=== PATIENT | female | born 1985 | race Hispanic/Latino ===

== ENCOUNTER 2019-08-27 02:37 | Emergency (ER) | payer SELFPAY ==
[2019-08-27] MEDS ORDERED: SODIUM CHLORIDE 0.9% 1000 ML 1,000 ML IV ONE (03:01)
[2019-08-27] MEDS ORDERED: MORPHINE 4 MG/1 ML INJ IV ONE ×2 (03:01→03:02)
[2019-08-27] MEDS ORDERED: ONDANSETRON 4 MG/2 ML INJ IV ONE (03:02)
--- NOTE | 2019-08-27 03:03 | Emergency Department Report ---
ED Female HPI - General Chief complaint: Vaginal Bleeding Stated complaint: ABD PAIN/PREG Time Seen by Provider: 08/27/19 02:57 Source: patient, EMS Mode of arrival: Stretcher Limitations: No Limitations - History of Present Illness Initial comments: This is a 34 yo female with hx of HTN who presents with possibled miscarriage. She recently found out that she was last week. She has had 2 days of severe pelvic cramping and vaginal bleeding. She arrived via EMS. Hx of possibly 5 pregnancies. She has had previous miscarriage and Hx of according to EMR MD Complaint: vaginal bleeding, pelvic pain -: Gradual, days(s) (2) Severity: severe Severity scale (0 -10): 10 Quality: cramping (feels like contractions) Consistency: constant Improves with: none Worsens with: none Are you Now?: Yes Associated Symptoms: denies other symptoms - Related Data Previous Rx's Medication Instructions Recorded Last Taken Type Ibuprofen [Motrin 800 MG tab] 800 mg PO TID PRN #30 tablet 03/23/18 Unknown Rx Lidocain2.5%/Prilocai2.5% [Emla] 5 gm TP ONCE #1 tube 03/23/18 Unknown Rx oxyCODONE /ACETAMINOPHEN [Percocet 1 - 2 tab PO Q4HR PRN #15 tablet 03/23/18 Unknown Rx 5/325 mg] labetaloL [Labetalol 200mg TAB] 200 mg PO BID #60 tablet 03/26/18 Unknown Rx HYDROcodone/APAP 5-325 [[place] 1 each PO Q6HR PRN #10 tablet 08/27/19 Unknown Rx 5/325] Ibuprofen [Motrin 800 MG tab] 800 mg PO Q8HR PRN #15 tablet 08/27/19 Unknown Rx Allergies Allergy/AdvReac Type Severity Reaction Status Date / Time No Known Allergies Allergy Unverified 03/23/18 14:50 ED Review of Systems ROS: Stated complaint: ABD PAIN/PREG Other details as noted in HPI Comment: All other systems reviewed and negative Constitutional: denies: fever, malaise Respiratory: denies: cough Cardiovascular: denies: chest pain ED Past Medical Hx - Past Medical History Previous Medical History?: Yes Hx Hypertension: Yes - Surgical History Past Surgical History?: Yes Additional Surgical History: - Social History Smoking Status: Current Every Day Smoker - Medications Home Medications: Home Medications Medication Instructions Recorded Confirmed Last Taken Type Ibuprofen [Motrin 800 MG tab] 800 mg PO TID PRN #30 tablet 03/23/18 Unknown Rx Lidocain2.5%/Prilocai2.5% [Emla] 5 gm TP ONCE #1 tube 03/23/18 Unknown Rx oxyCODONE /ACETAMINOPHEN [Percocet 1 - 2 tab PO Q4HR PRN #15 tablet 03/23/18 Unknown Rx 5/325 mg] labetaloL [Labetalol 200mg TAB] 200 mg PO BID #60 tablet 03/26/18 Unknown Rx HYDROcodone/APAP 5-325 [[place] 1 each PO Q6HR PRN #10 tablet 08/27/19 Unknown Rx 5/325] Ibuprofen [Motrin 800 MG tab] 800 mg PO Q8HR PRN #15 tablet 08/27/19 Unknown Rx ED Physical Exam - General Limitations: No Limitations General appearance: alert, in no apparent distress, other (in severe pain, pale) - Head Head exam: Present: atraumatic, normocephalic - Eye Eye exam: Present: normal appearance - ENT ENT exam: Present: mucous membranes moist - Neck Neck exam: Present: normal inspection, full ROM - Respiratory Respiratory exam: Present: normal lung sounds bilaterally. Absent: respiratory distress, wheezes, rales, rhonchi - Cardiovascular Cardiovascular Exam: Present: regular rate, normal rhythm, normal heart sounds. Absent: systolic murmur, diastolic murmur, rubs, gallop - GI/Abdominal GI/Abdominal exam: Present: soft, normal bowel sounds. Absent: distended, tenderness, guarding, rebound - Extremities Exam Extremities exam: Present: normal inspection - Neurological Exam Neurological exam: Present: alert, oriented X3 - Psychiatric Psychiatric exam: Present: normal affect, normal mood - Skin Skin exam: Present: warm, dry, intact, normal color. Absent: rash ED Course Vital Signs 08/27/19 08/27/19 08/27/19 02:47 02:51 03:01 Temperature 98.3 F Pulse Rate 60 59 L Respiratory 16 14 Rate Blood Pressure 122/63 Blood Pressure 122/63 [Right] O2 Sat by Pulse 100 100 Oximetry 08/27/19 08/27/19 08/27/19 03:54 04:01 04:15 Temperature Pulse Rate 85 93 H 92 H Respiratory 17 17 18 Rate Blood Pressure 122/78 122/78 132/88 Blood Pressure [Right] O2 Sat by Pulse 100 99 100 Oximetry 08/27/19 08/27/19 04:31 04:45 Temperature Pulse Rate 96 H 90 Respiratory 17 17 Rate Blood Pressure 130/98 136/93 Blood Pressure [Right] O2 Sat by Pulse 100 100 Oximetry ED Medical Decision Making - Lab Data Result diagrams: 08/27/19 03:34 08/27/19 03:34 - Radiology Data Radiology results: report reviewed ULTRASOUND OBSTETRIC INDICATION: Vaginal bleeding. Estimate clinical age of 14 weeks, 0 days. TECHNIQUE: Transabdominal. COMPARISON: None available. FINDINGS: A gestational sac is seen along the vagina with an estimated gestational age of 9 weeks, 4 days based on size. No pole or yolk sac is clearly seen. The endometrium is thickened and measures 16 mm with generalized heterogeneity, likely representing blood products. No additional significant abnormality of the uterus or ovaries is noted. No free fluid is seen. IMPRESSION: Sonographic evidence of a failed with spontaneous in progress. - Medical Decision Making Spontaneous : Ro positive. Pain control supportive therapy provided. Products of conception seen in vaginal vault on ultrasound has expelled once a bed. No significant bleeding thereafter. Patient prescribed ibuprofen and [place]. Critical care attestation.: If time is entered above; I have spent that time in minutes in the direct care of this critically ill patient, excluding procedure time. ED Disposition Clinical Impression: Spontaneous Disposition: DC-01 TO HOME OR SELFCARE Is pt being admited?: No Does the pt Need Aspirin: No Condition: Stable Instructions: Spontaneous Miscarriage (ED) Prescriptions: Ibuprofen [Motrin 800 MG tab] 800 mg PO Q8HR PRN #15 tablet PRN Reason: Pain , Severe (7-10) HYDROcodone/APAP 5-325 [[place] 5/325] 1 each PO Q6HR PRN #10 tablet PRN Reason: Pain Referrals: WAQAR BURGOS MD [Staff Physician] - 3-5 Days
[2019-08-27 03:52] LABS: Basophils % (Auto) 0.3 % (0.0-1.8); Eosinophils # (Auto) 0.1 K/mm3 (0.0-0.4); Eosinophils % (Auto) 0.8 % (0.0-4.3); Hematocrit 32.8 % (30.3-42.9); Hemoglobin 11.3 gm/dl (10.1-14.3); Mean Corpuscular HGB Conc 35 % (30-34); Mean Corpuscular Volume 89 fl (79-97); Monocytes # (Auto) 0.5 K/mm3 (0.0-0.8); Monocytes % (Auto) 5.4 % (0.0-7.3); Platelet Count 323 K/mm3 (140-440); Red Blood Count 3.69 M/mm3 (3.65-5.03); Red Cell Distribution Width 13.1 % (13.2-15.2)
[2019-08-27 04:10] LABS: Hemolysis Index 16
[2019-08-27 04:20] LABS: Calcium TNR mg/dL (8.4-10.2)
[2019-08-27 04:22] LABS: BUN/Creatinine Ratio TNR; Blood Urea Nitrogen TNR mg/dL (7-17)
[2019-08-27] MEDS ORDERED: KETOROLAC 30 MG/1 ML INJ IV ONE (04:33)
[2019-08-27 05:20] LABS: BUN/Creatinine Ratio 20; Blood Urea Nitrogen 12 mg/dL (7-17); Calcium 8.4 mg/dL (8.4-10.2); Hemolysis Index 16
[2019-08-27 05:42] VITALS: BP 117/81
== END 2019-08-27 05:42 | disposition home or self-care (01) ==
LOC: ED 02:37
DX: O03.9 Complete or unspecified spontaneous abortion without complication (principal); F17.200 Nicotine dependence, unspecified, uncomplicated; I10 Essential (primary) hypertension
CPT/HCPCS: 36415; 76801; 80048; 85025; 86900; 86901; 96374; 96375; 99285; J1885; J2270; J2405; J7030

== ENCOUNTER 2021-01-30 15:23 | Inpatient (IN) | payer MEDICAID ==
[2021-01-30] MEDS ORDERED: LACTATED RINGERS 1,000 ML ONE (15:53)
[2021-01-30] MEDS ORDERED: hydrALAZINE 20 MG/1 ML INJ ONE (15:53)
--- NOTE | 2021-01-30 16:14 | History and Physical Report ---
History of Present Illness Date of examination: 01/30/21 Date of admission: 01/30/2021 Chief complaint: contractions starting this am History of present illness: Pt reports one visit at [facility] in July 2020 with DON 02/13/21 per US. Pt reports labs were drawn at this visit but she did not return for any more care visits. Reports history of term x3 and term C/S x1 for breech in 2019. Denies any complications with deliveries. Pt reports history of chronic hypertension and has taken "Lisinopril off and on for years". Past History Past Medical History: hypertension. denies: blood transfusion Past Surgical History: section WEAVING LOOM OPERATOR History: other (partner with +herpes) Family/Genetic History: diabetes, heart disease Social history: other (admitted to meth use 3 weeks ago) - Obstetrical History Expected Date of Delivery: 02/13/21 (per pt) Actual Gestation: 38 Week(s) 0 Day(s) : 7 Para: 4 Hx # Term Pregnancies: 4 Number of Pregnancies: 0 Spontaneous Abortions: 1 Induced : 1 Number of Living Children: 4 #1 year: 2,007 Birthweight: 7 lb 7 oz Method of Delivery: Vaginal Gestational age at delivery: 40 Complications: none #2 year: 2,015 Birthweight: 6 lb 11 oz Method of Delivery: Vaginal Gestational age at delivery: 40 Complications: none #3 year: 2,016 Birthweight: 8 lb Method of Delivery: Vaginal Gestational age at delivery: 40 Complications: none #4 year: 2,019 Birthweight: 8 lb 11 oz Method of Delivery: Gestational age at delivery: 40 Complications: none #5 Complications: other (SAB @4 mos., received medications, denies D&C) #6 Complications: other (EAB @6wks) Medications and Allergies Allergies Allergy/AdvReac Type Severity Reaction Status Date / Time No Known Allergies Allergy Unverified 03/23/18 14:50 Home Medications Medication Instructions Recorded Confirmed Last Taken Type Ibuprofen [Motrin 800 MG tab] 800 mg PO TID PRN #30 tablet 03/23/18 Unknown Rx Lidocain2.5%/Prilocai2.5% [Emla] 5 gm TP ONCE #1 tube 03/23/18 Unknown Rx oxyCODONE /ACETAMINOPHEN [Percocet 1 - 2 tab PO Q4HR PRN #15 tablet 03/23/18 Unknown Rx 5/325 mg] labetaloL [Labetalol 200mg TAB] 200 mg PO BID #60 tablet 03/26/18 Unknown Rx HYDROcodone/APAP 5-325 [[place] 1 each PO Q6HR PRN #10 tablet 08/27/19 Unknown Rx 5/325] Ibuprofen [Motrin 800 MG tab] 800 mg PO Q8HR PRN #15 tablet 08/27/19 Unknown Rx - Vital Signs Vital signs: Vital Signs Pulse BP Pulse Ox 117 H 177/121 100 01/30/21 15:43 01/30/21 15:43 01/30/21 15:43 Temp Pulse Resp BP Pulse Ox 119 H 168/105 88 01/30/21 16:09 01/30/21 16:06 01/30/21 16:09 - Physical Exam Cardiovascular: Regular rate Lungs: Positive: Clear to auscultation Abdomen: Positive: normal appearance, soft Genitourinary (Female): Positive: normal external genitalia, normal perenium Vulva: both: normal Vagina: Positive: normal moisture Uterus: Positive: normal size, normal contour, other (gravid) Anus/Rectum: Positive: normal perianal skin, heme negative Extremities: Positive: other (red richardson mottled appearing on upper anterior BLE) - Obstetrical FHR: category 2 FHR comments: minimal to moderate variability reviewed on FHT's Uterine Contraction Monitor Mode: External Cervical Dilatation: 2 Cervical Effacement Percentage: 80 station: -3 Uterine Contraction Pattern: Regular Uterine Tone Measurement Phase: Contraction Uterine Contraction Intensity: Moderate Results Result Diagrams: 01/30/21 17:20 01/30/21 17:20 All other labs normal. Assessment and Plan Pt presents via EMS. BP elevated. Hydralazine ordered stat IV. SVE performed. Pt denies LOF and VB. Reports +FM. Dr. Benítez made aware. Orders received. - Patient Problems (1) Uterine scar from previous delivery Current Visit: Yes Status: Acute Plan to address problem: prep for rpt CS (2) Chronic hypertension Current Visit: No Status: Acute Plan to address problem: labs antihypertensives Magnesium Sulfate IV (3) Insufficient care in third trimester Current Visit: No Status: Acute Plan to address problem: Ultrasound Labs
[2021-01-30] MEDS ORDERED: MAGNESIUM SULFATE 4 GM/100 ML BAG IV ONE ×2 (16:34→16:36)
[2021-01-30] MEDS ORDERED: MAGNESIUM SULFATE 40GM/1000ML 40 GM/1,000 ML BAG IV ONE (16:36)
[2021-01-30] MEDS ORDERED: LACTATED RINGERS 1,000 ML IV SCH ×2 (16:45→17:30)
[2021-01-30] MEDS ORDERED: MAGNESIUM SULFATE 40GM/1000ML 40 GM/1,000 ML BAG IV SCH (17:00)
[2021-01-30] MEDS ORDERED: hydrALAZINE 20 MG/1 ML INJ IV ONE (17:04)
[2021-01-30] MEDS ORDERED: EMLA CREAM 5 GM TP PRN (17:18)
[2021-01-30] MEDS ORDERED: FAMOTIDINE 20 MG/2 ML INJ IV ONE (17:18)
[2021-01-30] MEDS ORDERED: METOCLOPRAMIDE 10 MG/2 ML INJ IV ONE (17:18)
[2021-01-30] MEDS ORDERED: BICITRA ORAL LIQD 30ML PO ONE (17:18)
--- NOTE | 2021-01-30 17:40 | Ultrasound Report ---
ULTRASOUND OBSTETRIC COMPLETE INDICATION / CLINICAL INFORMATION: wellbeing. Clinical Gestational Age (GA) in weeks, days: 38 weeks 0 days TECHNIQUE: Transabdominal. COMPARISON: None available. FINDINGS: NUMBER: Single PRESENTATION: cephalic PLACENTA: posterofundal and free of the os. MATERNAL ADNEXA: No significant abnormality. AMNIOTIC FLUID VOLUME: normal AMNIOTIC FLUID INDEX (ANGEL) in cm (if measured): 26.7 ANATOMY: Evaluation of anatomy is limited due to late gestational age. No significant abnormality. MEASUREMENTS: - Biparietal Diameter = 8.3 cm = 33 weeks 2 days - Head Circumference = 31.4 cm = 35 weeks 1 day - Abdominal Circumference = 34.9 cm = 38 weeks 6 days - Femur Length = 7.1 cm = 36 weeks 2 days - Estimated Weight (in grams, if calculated): 3127 - Heart Rate (beats per minute): 174 ADDITIONAL FINDINGS: None. PERCENTILE ESTIMATED WEIGHT (if calculated): Not calculated AVERAGE ULTRASOUND AGE (AUA) in weeks, days = 35 weeks 6 days IMPRESSION: 1. Single intrauterine with AUA of 35 weeks 6 days. 2. No significant sonographic abnormality. Signer Name: Erick Cheatham MD Signed: 01/30/2021 5:35 PM Workstation Name: [id number]
[2021-01-30 17:55] LABS: Hematocrit 31.9 % (30.3-42.9); Hemoglobin 9.6 gm/dl (10.1-14.3); Mean Corpuscular HGB Conc 30 % (30-34); Mean Corpuscular Volume 84 fl (79-97); Red Blood Count 3.81 M/mm3 (3.65-5.03); Red Cell Distribution Width 18.6 % (13.2-15.2)
[2021-01-30] MEDS ORDERED: ceFAZolin/Water 2 GM/20 ML 2 GM/20 ML SYRINGE IV NR (18:00)
[2021-01-30] MEDS ORDERED: OXYTOCIN DRIP 30 UNITS/500 ML BAG IV SCH (18:00)
[2021-01-30 18:08] LABS: Bilirubin,Urine NEG (Negative); Blood,Urine SM (Negative); Color,Urine Yellow (Yellow); Mucus,Urine FEW /HPF
[2021-01-30 18:09] LABS: Protein,Urine >500 mg/dL (Negative)
--- NOTE | 2021-01-30 18:10 | Anesthesia Day of Surgery ---
Anesthesia Day of Surgery - Day of Surgery Patient Examined: Yes Patient H&P Reviewed: Yes Patient is NPO: No (1300) Beta Blockers: Yes Cardiac Clearance: No Pulmonary Clearance: No Juno's Test: Negative
[2021-01-30 18:12] LABS: Amphetamine Screen,Urine PRESUMPTIVE POSITIVE; Benzodiazepines Screen,Urine PRESUMPTIVE NEGATIVE; Cannabinoid Screen,Urine PRESUMPTIVE NEGATIVE; Cocaine Screen,Urine PRESUMPTIVE NEGATIVE; Creatinine,Urine 95.7 mg/dL (0.1-20.0); Methadone Screen,Urine PRESUMPTIVE NEGATIVE; Opiate Screen,Urine PRESUMPTIVE NEGATIVE
[2021-01-30 18:13] LABS: Albumin 2.3 g/dL (3.9-5); Bilirubin,Direct 0.4 mg/dL (0-0.2)
[2021-01-30] MEDS ORDERED: NALOXONE 0.4 MG/1 ML INJ IV PRN ×2 (18:14→19:40)
[2021-01-30] MEDS ORDERED: HYDROmorphone 1 MG/1 ML INJ IV PRN ×2 (18:14)
[2021-01-30] MEDS ORDERED: ONDANSETRON 4 MG/2 ML INJ IV PRN (18:14)
--- NOTE | 2021-01-30 18:14 | Anesthesia Consultation ---
Anesthesia Consult and Med Hx Date of service: 01/30/21 - Airway Anesthetic Teeth Evaluation: Poor ROM Head & Neck: Adequate Mental/Hyoid Distance: Adequate Mallampati Class: Class II Intubation Access Assessment: Probably Good - Pulmonary Exam CTA: Yes - Cardiac Exam Cardiac Exam: RRR - Pre-Operative Health Status ASA Pre-Surgery Classification: ASA3, Emergency Proposed Anesthetic Plan: Spinal - Pulmonary Hx Smoking: Yes (1/4 PPD x 15yrs) Hx Asthma: Yes Hx Respiratory Symptoms: Yes SOB: Yes COPD: No Home Oxygen Therapy: No Hx Pneumonia: No Hx Sleep Apnea: No - Cardiovascular System Hx Hypertension: Yes Hx Coronary Artery Disease: No Hx Heart Attack/AMI: No Hx Angina: No Hx Percutaneous Transluminal Coronary Angioplasty (PTCA): No Hx Cardia Arrhythmia: No Hx Pacemaker: No Hx Internal Defibrillator: No Hx Valvular Heart Disease: No Hx Heart Murmur: No Hx Peripheral Vascular Disease: No - Central Nervous System Hx Neuromuscular Disorder: No Hx Seizures: No CVA: No Hx Back Pain: Yes Hx Psychiatric Problems: No - Gastrointestinal Hx Ulcer: No Hx Gastroesophageal Reflux Disease: Yes - Endocrine Hx Renal Disease: No Hx End Stage Renal Disease: No Hx Cirrhosis: No Hx Liver Disease: No Hx Insulin Dependent Diabetes: No Hx Non-Insulin Dependent Diabetes: No Hx Thyroid Disease: No Hx Hypothyroidism: No Hx Hyperthyroidism: No - Hematic Hx Anemia: No Hx Sickle Cell Disease: No - Other Systems Hx Alcohol Use: No Hx Substance Use: Yes (methamphethtamine 3wks ago) Hx Cancer: No Hx Obesity: Yes
[2021-01-30 18:16] LABS: Platelet Count 94 K/mm3 (140-440)
[2021-01-30] MEDS ORDERED: ONDANSETRON 4 MG/2 ML INJ ONE ×2 (18:23)
[2021-01-30 18:25] LABS: Hepatitis C Virus Antibody Non-Reactive (NonReactive)
--- NOTE | 2021-01-30 18:38 | Event Note ---
Date: 01/30/21 Pt advised of labs and that she seems to be in HELLP at this time due to low platelets, elevated liver enzymes. I advised that due to her being in this critical condition as well as being on the different medications as well as uds being positive for meth I would not be doing a permanent decision for BTL at this time and she can come back to office in 6weeks to have the procedure done. All questions were addressed and answered.
[2021-01-30 18:40] LABS: HCG,Quantitative 40597 mIU/mL (0-4)
[2021-01-30] MEDS ORDERED: BUPIVACAINE/PF (0.25%) 2.5 MG/ML 30 ML VIAL INFILTRATI ONE ×2 (19:20)
--- NOTE | 2021-01-30 19:38 | Operative Report ---
Operative Report Operative Report: Date of procedure: 01/30/2021 Pre-operative diagnosis: 38 weeks gestation History of methamphetamine use No care Severe preeclampsia Help syndrome Post-operative diagnosis: Same Procedure name(s): Repeat low transverse section via Pfannenstiel skin incision Surgeon: Dr. Benítez Energy Management Specialist: LUIS CARLOS Anesthesia: Spinal QBL: 1278 Urine output: 200 cc of clear urine out at end of procedure Fluids: 1 L Findings: Liveborn female weight 6 pounds 10 ounces Apgars of 8 and 9 at 1 and 5 minutes Grossly normal fallopian tubes and ovaries bilaterally Fibroid uterus Indications: Patient presented to triage with blood pressures in severe ranges of approximately 170s over 100s. Patient was also noted to have no care. As well as patient was noted to be in latent labor and previous section scar. Decision was made to proceed to the operating room for repeat section. All risk benefits alternatives were discussed with the patient. Procedure: Patient was taking to the operating room. Patient was then prepped and draped in sterile fashion after anesthesia was found to be adequate. A low transverse skin incision was made with the scalpel through previous incisional scar and carried down to the underlying layer of fascia with the Bovie. The fascia was then incised in the midline and this incision was extended bilaterally with the Bovie. The superior aspect of the fascia was grasped with Eric clamps tented upward and dissected off of the anterior rectus muscles with the scalpel. In similar fashion the inferior aspect of the fascia was grasped with Eric clamps tented upward and dissected off of the anterior rectus muscles. The rectus muscles were then bluntly divided in the midline. The peritoneum was identified and entered into sharply. The bladder blade was placed. The Conrad retractor was placed the bladder blade was replaced. A lower transverse uterine incision was made with the scalpel and extended bilaterally with the bandage scissors. Artificial rupture of membranes was performed yielding [clear amniotic fluid]. The 's head was then delivered atraumatically. The anterior shoulder and rest of delivered without difficulty. The umbilical cord was clamped x2. The cord was cut. The infant was then placed in sterile bassinet. The placenta was manually extracted in its entirety. The uterus was exteriorized and cleared of all clots and debris. The uterine incision was closed using 0 Vicryl in a running locking fashion. Several [id number] sutures were used along incision line to secure excellent hemostasis. The posterior cul-de-sac was copiously irrigated. The uterus was returned to the abdomen. The gutters were also irrigated. The anterior rectus muscles were reapproximated using 3-0 Vicryl. The anterior rectus fascia was reapproximated using 0 Vicryl in a running fashion. The subcuticular fat was reapproximated using 2-0 Vicryl in a running fashion. The skin was reapproximated with 4-0 Monocryl in a subcuticular stitch. The patient tolerated the procedure well. Sponge lap and needle counts were all correct x3. Patient was taken to the recovery room awake and in stable condition.
[2021-01-30] MEDS ORDERED: ACETAMINOPHEN 325 MG TAB PO PRN (19:40)
[2021-01-30] MEDS ORDERED: WITCH HAZEL/ GLYCERIN PAD TP PRN (19:40)
[2021-01-30] MEDS ORDERED: SIMETHICONE 80 MG CHEW TAB PO PRN (19:40)
[2021-01-30] MEDS ORDERED: KETOROLAC 30 MG/1 ML INJ IV PRN ×2 (19:40)
[2021-01-30] MEDS ORDERED: HYDROcodone/ACETAMINOPHEN 5-325 MG TAB PO PRN (19:40)
[2021-01-30] MEDS ORDERED: LANOLIN/ZINC/DIMETHICONE (LANSINOH) 7 GM TP PRN (19:40)
[2021-01-30] MEDS ORDERED: IBUPROFEN 800 MG TAB PO PRN (19:40)
--- NOTE | 2021-01-30 20:16 | Progress Note ---
Spinal Anesthesia Block - Spinal Anesthesia Block Start Time: 19:38 Stop Time: 19:43 Performed by:: ARVIND SCHWAB Procedure: Patient IDed, H&P reviewed, all questions and concerns were answered, and consent was signed. Timeout was performed at bedside. Patient in sitting position. Sterile prep and drape was performed. [3] ml of 1% lidocaine skin wheal at L[3]- L [4]. Needle introducer advanced. 25 gauge spinal needle advanced. Clear, free flowing CSF. negative blood, negative paresthesia. Spinal dose given. All needles removed. Patient tolerated procedure.
--- NOTE | 2021-01-30 20:20 | Progress Note ---
Regional Anesthesia Block - Regional Anesthesia Block Start Time: 19:32 Stop Time: 19:38 Performed By:: ARVIND SCHWAB Procedure: Patient consented for TAP block for post surgical pain management. Patient identified, monitors placed, and time out performed. TAP identified bilaterally via ultrasound. Skin prepped bilaterally with [chlorhexidine] and [22g stimuplex] needle advanced to the TAP. [Marcaine 0.25% 30ml] injected under ultrasound guidance on the [left] side. [Marcaine 0.25% 30ml] injected under ultrasound guidance on the [right] side. Negative aspiration every 5mL, No change in heart rate or rhythm. Patient tolerated the procedure well. No apparent complications seen.
[2021-01-30 20:54] LABS: INR 1.57 (0.87-1.13)
[2021-01-30 21:34] LABS: Partial Thromboplastin Time 82.2 Sec. (24.2-36.6)
--- NOTE | 2021-01-30 22:44 | Event Note ---
Date: 01/30/21 Co Ags ordered by screen roller and are abnormal. However, pt not having any active bleeding and had normal clotting response during surgery. No fibronogen was ordered. Will obtain fibrinogen and also repeat her sodium level at this time in addition to repeating the h/h as she she was anemic an qbl was >1200ml. Will con't to closely follow and monitor closely.
[2021-01-30 22:45] LABS: Total Cells Counted 100
[2021-01-30 22:46] LABS: Anisocytosis 1+; Macrocytosis Few; Platelet Estimate Consistent w Auto
[2021-01-31 00:01] LABS: Hematocrit 29.1 % (30.3-42.9); Hemoglobin 9.1 gm/dl (10.1-14.3)
[2021-01-31 04:15] LABS: Hematocrit 30.3 % (30.3-42.9); Hemoglobin 9.3 gm/dl (10.1-14.3); Mean Corpuscular HGB Conc 31 % (30-34); Mean Corpuscular Volume 81 fl (79-97); Platelet Count 246 K/mm3 (140-440); Red Blood Count 3.73 M/mm3 (3.65-5.03); Red Cell Distribution Width 18.2 % (13.2-15.2)
[2021-01-31 04:21] LABS: Albumin 2.1 g/dL (3.9-5); Calcium 7.3 mg/dL (8.4-10.2)
--- NOTE | 2021-01-31 05:26 | Post Anesthesia Evaluation ---
- Post Anesthesia Evaluation Patient Participated: Yes Airway Patent: Yes Stable Respiratory Function: Yes Nausea/Vomiting: No Temp > 96.8F: Yes Pain Manageable: Yes Adequeate Hydration: Yes Anesthesia Complications: No Block Receding Appropriately: Yes Patient on Ventilator: No
[2021-01-31 05:48] LABS: Anisocytosis 1+; Platelet Estimate Consistent w Auto; Total Cells Counted 100
--- NOTE | 2021-01-31 05:51 | Event Note ---
Date: 01/31/21 Labs reviewed: Pt continues to have hyponatremia. Will consult hospitalist team at this time regarding this and repletion of the sodium in a controlled manner. Pt does not have any s/sx of hyponatremia so this could be chronic. Platelets are now is normal range after delivery and serial h/h does not seem to reflect the QBL calculated. Pt did have polu prior to delivery and this is likely reflected in the QBL. LFTs are still elevated due to severe preE. Will con't will serial labs. Mag was restarted due to be being elevated again once the affects of the spinal had worn off. Blood pressures are no longer in the sever range after delivery. Will con't to closely monitor pt at this time.
[2021-01-31] MEDS ORDERED: MORPHINE 4 MG/1 ML INJ IV PRN (08:21)
[2021-01-31] MEDS ORDERED: MORPHINE 2 MG/1 ML INJ IV PRN (08:21)
[2021-01-31] MEDS: HYDROmorphone 1 MG/1 ML INJ IV PRN ×3 (09:06→21:59)
[2021-01-31 09:16] LABS: Hemoglobin 9.7 gm/dl (10.1-14.3); Mean Corpuscular HGB Conc 31 % (30-34); Mean Corpuscular Volume 80 fl (79-97); Platelet Count 265 K/mm3 (140-440); Red Blood Count 3.85 M/mm3 (3.65-5.03); Red Cell Distribution Width 18.3 % (13.2-15.2)
[2021-01-31 09:26] LABS: INR 1.13 (0.87-1.13)
--- NOTE | 2021-01-31 09:26 | Progress Note ---
Assessment and Plan A: 35 y.o. s/p rpt , no care. HELLP Syndrome. Hx of chronic hypertension. - Patient Problems (1) Hemolysis, elevated liver enzymes, and low platelet (HELLP) syndrome during , delivered Current Visit: Yes Status: Acute Plan to address problem: Continue to monitor blood pressures. Continue to monitor labs. Awaiting nephrology and medical consults. Strict I&O's. IV fluids and pain medication adjusted. Clear liquid diet. Continue to monitor for worsening s/sx of HELLP. (2) delivery delivered Onset Date: ~03/23/18 Current Visit: No Status: Acute (3) Hyperkalemia Current Visit: Yes Status: Acute (4) Hyponatremia Current Visit: Yes Status: Acute (5) Chronic hypertension Current Visit: No Status: Acute Plan to address problem: Continue to monitor blood pressures. Awaiting recommendations from nephrology and medicine for medical management. Subjective - Subjective Date of service: 01/31/21 Principal diagnosis: s/p , POD #1, HELLP Syndrome, hyperkalemia, hyponatremia Patient reports: pain well controlled, other (Rudolph draining clear yellow urine, about 100ml noted during time of assessment. ) [place]: in NICU Objective - Vital Signs Latest vital signs: Vital Signs Temp Pulse Resp BP BP Pulse Ox Pulse Ox 01/31/21 09:23 85 99 01/31/21 09:18 90 91 01/31/21 09:16 83 133/92 01/31/21 09:13 85 99 01/31/21 09:08 84 97 01/31/21 09:06 20 01/31/21 09:03 82 99 01/31/21 08:58 83 98 01/31/21 08:53 86 97 01/31/21 08:48 86 99 01/31/21 08:46 83 132/93 01/31/21 08:43 86 98 01/31/21 08:38 85 98 01/31/21 08:33 85 98 01/31/21 08:31 83 135/93 01/31/21 08:28 86 98 01/31/21 08:23 85 98 01/31/21 08:18 86 98 01/31/21 08:16 85 134/96 01/31/21 08:13 86 99 01/31/21 08:08 86 100 01/31/21 08:03 86 98 01/31/21 08:01 89 130/90 01/31/21 07:59 100 01/31/21 07:58 84 99 01/31/21 07:57 97.4 F L 20 100 01/31/21 07:46 82 126/76 01/31/21 07:31 83 127/80 01/31/21 07:16 82 131/81 01/31/21 07:01 81 133/79 01/31/21 06:46 82 135/82 01/31/21 06:31 81 136/83 01/31/21 06:16 83 132/82 01/31/21 06:01 85 124/78 01/31/21 05:46 83 123/76 01/31/21 05:31 82 128/81 01/31/21 05:16 88 129/79 01/31/21 05:01 86 124/77 01/31/21 04:46 89 127/79 01/31/21 04:31 86 124/79 01/31/21 04:16 86 130/84 01/31/21 04:01 86 127/85 01/31/21 03:46 85 134/85 01/31/21 03:31 93 H 131/78 01/31/21 03:16 87 132/79 01/31/21 03:01 89 130/78 01/31/21 02:46 89 134/82 01/31/21 02:31 93 H 135/80 01/31/21 02:16 91 H 140/90 01/31/21 02:01 93 H 141/87 01/31/21 01:46 93 H 137/86 01/31/21 01:31 93 H 144/91 01/31/21 01:16 95 H 150/93 01/31/21 01:01 96 H 143/90 01/31/21 00:46 93 H 149/94 01/31/21 00:31 93 H 150/91 01/31/21 00:26 98.4 F 01/31/21 00:16 93 H 150/87 01/31/21 00:01 93 H 143/93 01/30/21 23:46 94 H 147/97 01/30/21 23:35 97 H 100 01/30/21 23:31 96 H 144/92 01/30/21 23:30 95 H 98 01/30/21 23:25 95 H 98 01/30/21 23:20 95 H 98 01/30/21 23:16 91 H 145/93 01/30/21 23:15 92 H 99 01/30/21 23:10 93 H 98 01/30/21 23:05 94 H 99 01/30/21 23:01 91 H 134/97 01/30/21 23:00 96 H 99 01/30/21 22:55 93 H 100 01/30/21 22:50 92 H 99 01/30/21 22:46 93 H 143/88 01/30/21 22:45 92 H 99 01/30/21 22:40 92 H 100 01/30/21 22:35 95 H 100 01/30/21 22:31 96 H 137/86 01/30/21 22:30 101 H 88 01/30/21 22:25 94 H 100 01/30/21 22:20 97 H 100 01/30/21 22:16 94 H 136/82 01/30/21 22:15 97 H 99 01/30/21 22:14 97 H 86 01/30/21 22:10 93 H 100 01/30/21 22:05 95 H 100 01/30/21 22:01 92 H 137/82 01/30/21 22:00 91 H 100 01/30/21 21:55 92 H 100 01/30/21 21:50 92 H 100 01/30/21 21:46 93 H 123/78 01/30/21 21:45 92 H 100 01/30/21 21:40 91 H 98 01/30/21 21:35 89 100 01/30/21 21:31 90 132/82 01/30/21 21:30 91 H 100 98 01/30/21 20:56 86 13 121/71 100 01/30/21 20:45 86 14 113/68 100 01/30/21 20:30 97.8 F 84 15 115/61 100 01/30/21 20:18 97.7 F 84 15 96/72 100 01/30/21 20:14 84 15 97/58 100 01/30/21 20:09 83 19 99/55 97 01/30/21 20:05 84 12 90/66 100 01/30/21 20:02 96.5 F L 83 14 94/60 100 01/30/21 18:23 114 H 100 01/30/21 18:18 115 H 170/113 94 01/30/21 18:13 123 H 89 01/30/21 18:12 101 H 85 01/30/21 18:10 118 H 197/130 01/30/21 18:08 117 H 100 01/30/21 18:03 111 H 100 01/30/21 17:58 112 H 100 01/30/21 17:54 113 H 157/97 01/30/21 17:53 112 H 100 01/30/21 17:48 110 H 100 01/30/21 17:43 112 H 100 01/30/21 17:40 117 H 168/105 01/30/21 17:38 111 H 100 01/30/21 17:33 111 H 98 01/30/21 17:28 113 H 100 01/30/21 17:23 114 H 167/97 100 01/30/21 17:18 114 H 100 01/30/21 17:13 116 H 100 01/30/21 17:11 175/124 01/30/21 17:09 113 H 175/107 01/30/21 17:08 113 H 100 01/30/21 17:03 117 H 100 01/30/21 17:00 140 H 86 01/30/21 16:58 117 H 98 01/30/21 16:55 117 H 175/124 01/30/21 16:54 114 H 87 01/30/21 16:53 116 H 96 01/30/21 16:40 117 H 176/120 01/30/21 16:39 119 H 95 01/30/21 16:37 115 H 176/120 01/30/21 16:35 117 H 79 L 01/30/21 16:34 112 H 100 01/30/21 16:29 118 H 93 01/30/21 16:26 117 H 140/103 01/30/21 16:24 116 H 97 01/30/21 16:19 116 H 100 01/30/21 16:18 98.6 F 117 H 22 170/102 96 01/30/21 16:17 116 H 173/102 01/30/21 16:14 116 H 99 01/30/21 16:09 119 H 88 01/30/21 16:06 117 H 168/105 01/30/21 16:04 115 H 98 01/30/21 16:01 117 H 90 01/30/21 15:59 113 H 87 01/30/21 15:56 117 H 170/114 01/30/21 15:54 84 91 01/30/21 15:43 117 H 177/121 100 Pulse Ox 01/31/21 09:23 01/31/21 09:18 01/31/21 09:16 01/31/21 09:13 01/31/21 09:08 01/31/21 09:06 01/31/21 09:03 01/31/21 08:58 01/31/21 08:53 01/31/21 08:48 01/31/21 08:46 01/31/21 08:43 01/31/21 08:38 01/31/21 08:33 01/31/21 08:31 01/31/21 08:28 01/31/21 08:23 01/31/21 08:18 01/31/21 08:16 01/31/21 08:13 01/31/21 08:08 01/31/21 08:03 01/31/21 08:01 01/31/21 07:59 100 01/31/21 07:58 01/31/21 07:57 01/31/21 07:46 01/31/21 07:31 01/31/21 07:16 01/31/21 07:01 01/31/21 06:46 01/31/21 06:31 01/31/21 06:16 01/31/21 06:01 01/31/21 05:46 01/31/21 05:31 01/31/21 05:16 01/31/21 05:01 01/31/21 04:46 01/31/21 04:31 01/31/21 04:16 01/31/21 04:01 01/31/21 03:46 01/31/21 03:31 01/31/21 03:16 01/31/21 03:01 01/31/21 02:46 01/31/21 02:31 01/31/21 02:16 01/31/21 02:01 01/31/21 01:46 01/31/21 01:31 01/31/21 01:16 01/31/21 01:01 01/31/21 00:46 01/31/21 00:31 01/31/21 00:26 01/31/21 00:16 01/31/21 00:01 01/30/21 23:46 01/30/21 23:35 01/30/21 23:31 01/30/21 23:30 01/30/21 23:25 01/30/21 23:20 01/30/21 23:16 01/30/21 23:15 01/30/21 23:10 01/30/21 23:05 01/30/21 23:01 01/30/21 23:00 01/30/21 22:55 01/30/21 22:50 01/30/21 22:46 01/30/21 22:45 01/30/21 22:40 01/30/21 22:35 01/30/21 22:31 01/30/21 22:30 01/30/21 22:25 01/30/21 22:20 01/30/21 22:16 01/30/21 22:15 01/30/21 22:14 01/30/21 22:10 01/30/21 22:05 01/30/21 22:01 01/30/21 22:00 01/30/21 21:55 01/30/21 21:50 01/30/21 21:46 01/30/21 21:45 01/30/21 21:40 01/30/21 21:35 01/30/21 21:31 01/30/21 21:30 01/30/21 20:56 01/30/21 20:45 01/30/21 20:30 01/30/21 20:18 01/30/21 20:14 01/30/21 20:09 01/30/21 20:05 01/30/21 20:02 01/30/21 18:23 01/30/21 18:18 01/30/21 18:13 01/30/21 18:12 01/30/21 18:10 01/30/21 18:08 01/30/21 18:03 01/30/21 17:58 01/30/21 17:54 01/30/21 17:53 01/30/21 17:48 01/30/21 17:43 01/30/21 17:40 01/30/21 17:38 01/30/21 17:33 01/30/21 17:28 01/30/21 17:23 01/30/21 17:18 01/30/21 17:13 01/30/21 17:11 01/30/21 17:09 01/30/21 17:08 01/30/21 17:03 01/30/21 17:00 01/30/21 16:58 01/30/21 16:55 01/30/21 16:54 01/30/21 16:53 01/30/21 16:40 01/30/21 16:39 01/30/21 16:37 01/30/21 16:35 01/30/21 16:34 01/30/21 16:29 01/30/21 16:26 01/30/21 16:24 01/30/21 16:19 01/30/21 16:18 01/30/21 16:17 01/30/21 16:14 01/30/21 16:09 01/30/21 16:06 01/30/21 16:04 01/30/21 16:01 01/30/21 15:59 01/30/21 15:56 01/30/21 15:54 01/30/21 15:43 Intake and Output 01/30/21 01/31/21 01/31/21 22:59 06:59 14:59 Intake Total 105 Output Total 50 250 30 Balance -50 -250 75 Intake: Oral 30 Other 75 Output: Urine 50 250 30 Indwelling Catheter 250 30 Uretheral (Rudolph) 50 Other: Total, Intake Amount 105 Total, Output Amount 250 30 # Voids Indwelling Catheter 1 Weight 197 lb - Exam Narrative Exam: Pt denies PEREZ, blurred vision, spots before her eyes, chest pain, shortness of breath, and upper abdominal pain. Blood pressures ranges have been 130/90's. Pt with noted hyponatremia, hyperkalemia. Medical and nephrology have been consulted. Breasts: Present: deferred Cardiovascular: Present: Normal S1, Normal S2 Lungs: Present: Clear to auscultation Abdomen: Present: normal appearance, soft, other (Hypoactive bowel sounds.) Vulva: both: normal Uterus: Present: normal, firm Extremities: Present: edema (+1 to +2 edema to bilateral hands and lower extremities.) Deep Tendon Reflex Grade: Dull/Diminished +1 Incision: Present: normal, dry, intact, dressed (Abdominal dressing with no ) - Labs Labs: Abnormal lab results 01/30/21 01/30/21 01/30/21 Range/Units 17:20 17:20 17:20 WBC 13.8 H (4.5-11.0) K/mm3 Hgb 9.6 L (10.1-14.3) gm/dl Hct (30.3-42.9) % MCH 25 L (28-32) pg RDW 18.6 H (13.2-15.2) % Plt Count 94 L (140-440) K/mm3 Seg Neuts % (Manual) 90.0 H (40.0-70.0) % Lymphocytes % (Manual) 7.0 L (13.4-35.0) % Nucleated RBC % 3.0 H (0.0-0.9) % Seg Neutrophils # Man 12.4 H (1.8-7.7) K/mm3 Lymphocytes # (Manual) 1.0 L (1.2-5.4) K/mm3 PT (12.2-14.9) Sec. INR (0.87-1.13) APTT (24.2-36.6) Sec. Sodium 119 L* (137-145) mmol/L Chloride 88.7 L (98-107) mmol/L Carbon Dioxide 12 L (22-30) mmol/L BUN 39 H (7-17) mg/dL Creatinine 1.4 H (0.6-1.2) mg/dL Glucose (65-100) mg/dL Uric Acid (3.5-7.6) mg/dL Calcium 7.0 L (8.4-10.2) mg/dL Magnesium 16.60 H (1.7-2.3) mg/dL Direct Bilirubin 0.4 H (0-0.2) mg/dL AST 178 H (5-40) units/L ALT 115 H (7-56) units/L Alkaline Phosphatase 166 H (35-129) units/L Total Protein 5.5 L (6.3-8.2) g/dL Albumin 2.3 L (3.9-5) g/dL HCG, Quant 66812 H (0-4) mIU/mL Urine Creatinine (0.1-20.0) mg/dL Urine Total Protein (5-11.8) mg/dL 01/30/21 01/30/21 01/30/21 Range/Units 17:20 20:16 23:37 WBC (4.5-11.0) K/mm3 Hgb 9.1 L (10.1-14.3) gm/dl Hct 29.1 L (30.3-42.9) % MCH (28-32) pg RDW (13.2-15.2) % Plt Count (140-440) K/mm3 Seg Neuts % (Manual) (40.0-70.0) % Lymphocytes % (Manual) (13.4-35.0) % Nucleated RBC % (0.0-0.9) % Seg Neutrophils # Man (1.8-7.7) K/mm3 Lymphocytes # (Manual) (1.2-5.4) K/mm3 PT 20.3 H (12.2-14.9) Sec. INR 1.57 H (0.87-1.13) APTT 82.2 H* (24.2-36.6) Sec. Sodium (137-145) mmol/L Chloride (98-107) mmol/L Carbon Dioxide (22-30) mmol/L BUN (7-17) mg/dL Creatinine (0.6-1.2) mg/dL Glucose (65-100) mg/dL Uric Acid 12.1 H (3.5-7.6) mg/dL Calcium (8.4-10.2) mg/dL Magnesium (1.7-2.3) mg/dL Direct Bilirubin (0-0.2) mg/dL AST (5-40) units/L ALT (7-56) units/L Alkaline Phosphatase (35-129) units/L Total Protein (6.3-8.2) g/dL Albumin (3.9-5) g/dL HCG, Quant (0-4) mIU/mL Urine Creatinine (0.1-20.0) mg/dL Urine Total Protein (5-11.8) mg/dL 01/30/21 01/30/21 01/31/21 Range/Units 23:37 Unknown 03:30 WBC 17.7 H (4.5-11.0) K/mm3 Hgb 9.3 L (10.1-14.3) gm/dl Hct (30.3-42.9) % MCH 25 L (28-32) pg RDW 18.2 H (13.2-15.2) % Plt Count (140-440) K/mm3 Seg Neuts % (Manual) (40.0-70.0) % Lymphocytes % (Manual) 8.0 L (13.4-35.0) % Nucleated RBC % 3.0 H (0.0-0.9) % Seg Neutrophils # Man 16.3 H (1.8-7.7) K/mm3 Lymphocytes # (Manual) (1.2-5.4) K/mm3 PT (12.2-14.9) Sec. INR (0.87-1.13) APTT (24.2-36.6) Sec. Sodium 135 L D (137-145) mmol/L Chloride (98-107) mmol/L Carbon Dioxide (22-30) mmol/L BUN (7-17) mg/dL Creatinine (0.6-1.2) mg/dL Glucose (65-100) mg/dL Uric Acid (3.5-7.6) mg/dL Calcium (8.4-10.2) mg/dL Magnesium (1.7-2.3) mg/dL Direct Bilirubin (0-0.2) mg/dL AST (5-40) units/L ALT (7-56) units/L Alkaline Phosphatase (35-129) units/L Total Protein (6.3-8.2) g/dL Albumin (3.9-5) g/dL HCG, Quant (0-4) mIU/mL Urine Creatinine 95.7 H (0.1-20.0) mg/dL Urine Total Protein 776 H (5-11.8) mg/dL 01/31/21 01/31/21 01/31/21 Range/Units 03:30 09:00 09:00 WBC 16.8 H (4.5-11.0) K/mm3 Hgb 9.7 L (10.1-14.3) gm/dl Hct (30.3-42.9) % MCH 25 L (28-32) pg RDW 18.3 H (13.2-15.2) % Plt Count (140-440) K/mm3 Seg Neuts % (Manual) (40.0-70.0) % Lymphocytes % (Manual) (13.4-35.0) % Nucleated RBC % (0.0-0.9) % Seg Neutrophils # Man (1.8-7.7) K/mm3 Lymphocytes # (Manual) (1.2-5.4) K/mm3 PT 15.7 H (12.2-14.9) Sec. INR (0.87-1.13) APTT (24.2-36.6) Sec. Sodium 129 L (137-145) mmol/L Chloride (98-107) mmol/L Carbon Dioxide 14 L (22-30) mmol/L BUN 45 H (7-17) mg/dL Creatinine 1.7 H (0.6-1.2) mg/dL Glucose 130 H (65-100) mg/dL Uric Acid (3.5-7.6) mg/dL Calcium 7.3 L (8.4-10.2) mg/dL Magnesium (1.7-2.3) mg/dL Direct Bilirubin (0-0.2) mg/dL AST 175 H (5-40) units/L ALT 127 H (7-56) units/L Alkaline Phosphatase 139 H (35-129) units/L Total Protein 5.0 L (6.3-8.2) g/dL Albumin 2.1 L (3.9-5) g/dL HCG, Quant (0-4) mIU/mL Urine Creatinine (0.1-20.0) mg/dL Urine Total Protein (5-11.8) mg/dL
[2021-01-31 09:27] LABS: Partial Thromboplastin Time 34.2 Sec. (24.2-36.6)
[2021-01-31 09:32] LABS: Albumin 2.3 g/dL (3.9-5); Calcium 7.1 mg/dL (8.4-10.2)
[2021-01-31] MEDS: FERROUS SULFATE 325 MG TAB PO SCH (10:01)
[2021-01-31] MEDS: ceFAZolin/NS 1 GM/50 ML 1 GM/50 ML BAG IV SCH ×5 (10:04→17:21)
[2021-01-31] MEDS ORDERED: SODIUM BICARB 8.4% 50 MEQ/50 ML SYRINGE IV ONE (10:58)
--- NOTE | 2021-01-31 10:58 | Consultation ---
History of Present Illness - Reason for Consult Consult date: 01/31/21 Hyponatremia Requesting physician: WAQAR BURGOS - History of Present Illness Patient is a 35 year old female with past medical hx of Chronic HTN was taken off lisinpril per patient presented to the hospital for concern of HELLP syndrome and underwent C section 01/30. She unfortunately had poor care and also has hx of tobacco smoking and methamphetamin use through out her .During visit was noted to have Hyponatremia and Leukocoytosis with worsening renal function We are consulted to assist with management She denies any chest pain, nausea and vomiting. Past History Past Medical History: hypertension, hyperlipidemia, other (tobacco) Past Surgical History: Social history: single, other (admitted to meth use 3 weeks ago) Family history: no significant family history Medications and Allergies Allergies Allergy/AdvReac Type Severity Reaction Status Date / Time No Known Allergies Allergy Unverified 03/23/18 14:50 Home Medications Medication Instructions Recorded Confirmed Last Taken Type Ibuprofen [Motrin 800 MG tab] 800 mg PO TID PRN #30 tablet 03/23/18 Unknown Rx Lidocain2.5%/Prilocai2.5% [Emla] 5 gm TP ONCE #1 tube 03/23/18 Unknown Rx oxyCODONE /ACETAMINOPHEN [Percocet 1 - 2 tab PO Q4HR PRN #15 tablet 03/23/18 Unknown Rx 5/325 mg] labetaloL [Labetalol 200mg TAB] 200 mg PO BID #60 tablet 03/26/18 Unknown Rx HYDROcodone/APAP 5-325 [[place] 1 each PO Q6HR PRN #10 tablet 08/27/19 Unknown Rx 5/325] Ibuprofen [Motrin 800 MG tab] 800 mg PO Q8HR PRN #15 tablet 08/27/19 Unknown Rx Docusate Sodium [Colace] 100 mg PO BID PRN #60 capsule 01/30/21 Unknown Rx Ferrous Sulfate [Feosol 325 MG tab] 325 mg PO QDAY #60 tablet 01/30/21 Unknown Rx Ibuprofen [Motrin 800 MG tab] 800 mg PO Q8HR PRN #30 tablet 01/30/21 Unknown Rx oxyCODONE /ACETAMINOPHEN [Percocet 1 tab PO Q4HR #15 tab 01/30/21 Unknown Rx 5/325] Active Meds: Active Medications Diphtheria/Tetanus/Acell Pertussis (Tetanus,Diph,Pertuss(Acell) Vaccine 0.5 Ml Syringe) 0.5 ml IM .ONCE ONE Stop: 01/31/21 19:46 Ferrous Sulfate (Ferrous Sulfate 325 Mg Tab) 325 mg PO QDAY [facility] Last Admin: 01/31/21 10:01 Dose: 325 mg Documented by: Hydralazine HCl (Hydralazine 20 Mg/1 Ml Inj) 10 mg IV ONCE PRN PRN Reason: Hypertension Hydromorphone HCl (Hydromorphone 1 Mg/1 Ml Inj) 0.25 mg IV Q4H PRN PRN Reason: Pain , MODERATE(4-6) Last Admin: 01/31/21 09:06 Dose: 0.25 mg Documented by: Hydromorphone HCl (Hydromorphone 1 Mg/1 Ml Inj) 0.5 mg IV Q4H PRN PRN Reason: Pain , Severe (7-10) Oxytocin/Sodium Chloride (Pitocin/Ns 30 Unit/500ml) 30 units in 500 mls @ 0 mls/hr IV TITR JONATAN; Protocol Sodium Chloride (Nacl 0.9% 1000 Ml) 1,000 mls @ 125 mls/hr IV DIRECT JONATAN Cefazolin Sodium (Ancef/Ns 1 Gm/50 Ml) 1 gm in 50 mls @ 100 mls/hr IV Q8H [facility]; Protocol Stop: 01/31/21 18:29 Labetalol HCl (Labetalol 200 Mg Tab) 300 mg PO BID [facility] Last Admin: 01/31/21 10:02 Dose: 300 mg Documented by: Lidocaine/Prilocaine (Emla Cream 5 Gm) 1 applic TP ONCE PRN PRN Reason: for [place] catheter insertion Multi-Ingredient Ointment (Lanolin/Zinc/Dimethicone (Lansinoh) 7 Gm) 1 applic TP PRN PRN PRN Reason: dryness/cracking Naloxone HCl (Naloxone 0.4 Mg/1 Ml Inj) 0.2 mg IV Q2MIN PRN PRN Reason: Res Rate </= 8 or 02 SAT < 92% Naloxone HCl (Naloxone 0.4 Mg/1 Ml Inj) 0.1 mg IV Q2MIN PRN PRN Reason: Res Rate </= 8 or 02 SAT < 92% Ondansetron HCl (Ondansetron 4 Mg/2 Ml Inj) 4 mg IV Q8H PRN PRN Reason: Nausea And Vomiting Simethicone (Simethicone 80 Mg Chew Tab) 80 mg PO Q6H PRN PRN Reason: Gas pain Sodium Chloride (Sodium Chloride 0.9% 10 Ml Flush Syringe) 10 ml IV PRN NR Stop: 02/09/21 19:59 Witch Connie/Glycerin (Witch Connie/ Glycerin Pad) 1 each TP PRN PRN PRN Reason: Hemorrhoids/cleansing/soothing Review of Systems All systems: negative Exam - Physical Exam Narrative exam: VITAL SIGNS: Reviewed. GENERAL: The patient appears normally developed, Vital signs as documented. HEAD: No signs of head trauma. EYES: Pupils are equal. Extraocular motions intact. EARS: Hearing grossly intact. MOUTH: Oropharynx is normal. NECK: No adenopathy, no JVD. CHEST: Chest with clear breath sounds bilaterally. No wheezes, rales, or rhonchi. CARDIAC: Regular rate and rhythm. S1 and S2, without murmurs, gallops, or rubs. VASCULAR: No Edema. Peripheral pulses normal and equal in all extremities. ABDOMEN: Surgical lesion, Soft, non tender and non distended. No rebound or guarding, and no masses palpated. Bowel Sounds normal. MUSCULOSKELETAL: Good range of motion of all major joints. Extremities without clubbing, cyanosis or edema. NEUROLOGIC EXAM: Alert and oriented x 3 No focal sensory or strength deficits. Speech normal. Follows commands. PSYCHIATRIC: Mood normal. SKIN: detail exam as documented in skin assessment - Constitutional Vitals: Temp Pulse Resp BP Pulse Ox 97.4 F L 86 20 131/99 99 01/31/21 07:57 01/31/21 10:53 01/31/21 09:06 01/31/21 10:46 01/31/21 10:53 Results - Labs CBC & Chem 7: 01/31/21 09:00 01/31/21 09:00 Labs: Abnormal lab results 01/30/21 01/30/21 01/30/21 Range/Units 17:20 17:20 17:20 WBC 13.8 H (4.5-11.0) K/mm3 Hgb 9.6 L (10.1-14.3) gm/dl Hct (30.3-42.9) % MCH 25 L (28-32) pg RDW 18.6 H (13.2-15.2) % Plt Count 94 L (140-440) K/mm3 Seg Neuts % (Manual) 90.0 H (40.0-70.0) % Lymphocytes % (Manual) 7.0 L (13.4-35.0) % Nucleated RBC % 3.0 H (0.0-0.9) % Seg Neutrophils # Man 12.4 H (1.8-7.7) K/mm3 Lymphocytes # (Manual) 1.0 L (1.2-5.4) K/mm3 PT (12.2-14.9) Sec. INR (0.87-1.13) APTT (24.2-36.6) Sec. Sodium 119 L* (137-145) mmol/L Potassium (3.6-5.0) mmol/L Chloride 88.7 L (98-107) mmol/L Carbon Dioxide 12 L (22-30) mmol/L BUN 39 H (7-17) mg/dL Creatinine 1.4 H (0.6-1.2) mg/dL Glucose (65-100) mg/dL Uric Acid (3.5-7.6) mg/dL Calcium 7.0 L (8.4-10.2) mg/dL Magnesium 16.60 H (1.7-2.3) mg/dL Direct Bilirubin 0.4 H (0-0.2) mg/dL AST 178 H (5-40) units/L ALT 115 H (7-56) units/L Alkaline Phosphatase 166 H (35-129) units/L Total Protein 5.5 L (6.3-8.2) g/dL Albumin 2.3 L (3.9-5) g/dL HCG, Quant 43425 H (0-4) mIU/mL Urine Creatinine (0.1-20.0) mg/dL Urine Total Protein (5-11.8) mg/dL 01/30/21 01/30/21 01/30/21 Range/Units 17:20 20:16 23:37 WBC (4.5-11.0) K/mm3 Hgb 9.1 L (10.1-14.3) gm/dl Hct 29.1 L (30.3-42.9) % MCH (28-32) pg RDW (13.2-15.2) % Plt Count (140-440) K/mm3 Seg Neuts % (Manual) (40.0-70.0) % Lymphocytes % (Manual) (13.4-35.0) % Nucleated RBC % (0.0-0.9) % Seg Neutrophils # Man (1.8-7.7) K/mm3 Lymphocytes # (Manual) (1.2-5.4) K/mm3 PT 20.3 H (12.2-14.9) Sec. INR 1.57 H (0.87-1.13) APTT 82.2 H* (24.2-36.6) Sec. Sodium (137-145) mmol/L Potassium (3.6-5.0) mmol/L Chloride (98-107) mmol/L Carbon Dioxide (22-30) mmol/L BUN (7-17) mg/dL Creatinine (0.6-1.2) mg/dL Glucose (65-100) mg/dL Uric Acid 12.1 H (3.5-7.6) mg/dL Calcium (8.4-10.2) mg/dL Magnesium (1.7-2.3) mg/dL Direct Bilirubin (0-0.2) mg/dL AST (5-40) units/L ALT (7-56) units/L Alkaline Phosphatase (35-129) units/L Total Protein (6.3-8.2) g/dL Albumin (3.9-5) g/dL HCG, Quant (0-4) mIU/mL Urine Creatinine (0.1-20.0) mg/dL Urine Total Protein (5-11.8) mg/dL 01/30/21 01/30/21 01/31/21 Range/Units 23:37 Unknown 03:30 WBC 17.7 H (4.5-11.0) K/mm3 Hgb 9.3 L (10.1-14.3) gm/dl Hct (30.3-42.9) % MCH 25 L (28-32) pg RDW 18.2 H (13.2-15.2) % Plt Count (140-440) K/mm3 Seg Neuts % (Manual) (40.0-70.0) % Lymphocytes % (Manual) 8.0 L (13.4-35.0) % Nucleated RBC % 3.0 H (0.0-0.9) % Seg Neutrophils # Man 16.3 H (1.8-7.7) K/mm3 Lymphocytes # (Manual) (1.2-5.4) K/mm3 PT (12.2-14.9) Sec. INR (0.87-1.13) APTT (24.2-36.6) Sec. Sodium 135 L D (137-145) mmol/L Potassium (3.6-5.0) mmol/L Chloride (98-107) mmol/L Carbon Dioxide (22-30) mmol/L BUN (7-17) mg/dL Creatinine (0.6-1.2) mg/dL Glucose (65-100) mg/dL Uric Acid (3.5-7.6) mg/dL Calcium (8.4-10.2) mg/dL Magnesium (1.7-2.3) mg/dL Direct Bilirubin (0-0.2) mg/dL AST (5-40) units/L ALT (7-56) units/L Alkaline Phosphatase (35-129) units/L Total Protein (6.3-8.2) g/dL Albumin (3.9-5) g/dL HCG, Quant (0-4) mIU/mL Urine Creatinine 95.7 H (0.1-20.0) mg/dL Urine Total Protein 776 H (5-11.8) mg/dL 01/31/21 01/31/21 01/31/21 Range/Units 03:30 09:00 09:00 WBC 16.8 H (4.5-11.0) K/mm3 Hgb 9.7 L (10.1-14.3) gm/dl Hct (30.3-42.9) % MCH 25 L (28-32) pg RDW 18.3 H (13.2-15.2) % Plt Count (140-440) K/mm3 Seg Neuts % (Manual) (40.0-70.0) % Lymphocytes % (Manual) (13.4-35.0) % Nucleated RBC % (0.0-0.9) % Seg Neutrophils # Man (1.8-7.7) K/mm3 Lymphocytes # (Manual) (1.2-5.4) K/mm3 PT (12.2-14.9) Sec. INR (0.87-1.13) APTT (24.2-36.6) Sec. Sodium 129 L (137-145) mmol/L Potassium (3.6-5.0) mmol/L Chloride (98-107) mmol/L Carbon Dioxide 14 L (22-30) mmol/L BUN 45 H (7-17) mg/dL Creatinine 1.7 H (0.6-1.2) mg/dL Glucose 130 H (65-100) mg/dL Uric Acid (3.5-7.6) mg/dL Calcium 7.3 L (8.4-10.2) mg/dL Magnesium 6.20 H (1.7-2.3) mg/dL Direct Bilirubin (0-0.2) mg/dL AST 175 H (5-40) units/L ALT 127 H (7-56) units/L Alkaline Phosphatase 139 H (35-129) units/L Total Protein 5.0 L (6.3-8.2) g/dL Albumin 2.1 L (3.9-5) g/dL HCG, Quant (0-4) mIU/mL Urine Creatinine (0.1-20.0) mg/dL Urine Total Protein (5-11.8) mg/dL 01/31/21 01/31/21 Range/Units 09:00 09:00 WBC (4.5-11.0) K/mm3 Hgb (10.1-14.3) gm/dl Hct (30.3-42.9) % MCH (28-32) pg RDW (13.2-15.2) % Plt Count (140-440) K/mm3 Seg Neuts % (Manual) (40.0-70.0) % Lymphocytes % (Manual) (13.4-35.0) % Nucleated RBC % (0.0-0.9) % Seg Neutrophils # Man (1.8-7.7) K/mm3 Lymphocytes # (Manual) (1.2-5.4) K/mm3 PT 15.7 H (12.2-14.9) Sec. INR (0.87-1.13) APTT (24.2-36.6) Sec. Sodium 125 L (137-145) mmol/L Potassium 5.4 H (3.6-5.0) mmol/L Chloride (98-107) mmol/L Carbon Dioxide 14 L (22-30) mmol/L BUN 43 H (7-17) mg/dL Creatinine 1.6 H (0.6-1.2) mg/dL Glucose 122 H (65-100) mg/dL Uric Acid (3.5-7.6) mg/dL Calcium 7.1 L (8.4-10.2) mg/dL Magnesium (1.7-2.3) mg/dL Direct Bilirubin (0-0.2) mg/dL AST 191 H (5-40) units/L ALT 140 H (7-56) units/L Alkaline Phosphatase 135 H (35-129) units/L Total Protein 5.1 L (6.3-8.2) g/dL Albumin 2.3 L (3.9-5) g/dL HCG, Quant (0-4) mIU/mL Urine Creatinine (0.1-20.0) mg/dL Urine Total Protein (5-11.8) mg/dL Assessment and Plan Patient is a 35 year old female with past medical hx of Chronic HTN was taken off lisinpril per patient presented to the hospital for concern of HELLP syndrome and underwent C section 01/30. She unfortunately had poor care and also has hx of tobacco smoking and methamphetamin use through out her .During visit was noted to have Hyponatremia and Leukocoytosis with worsening renal function We are consulted to assist with management She denies any chest pain, nausea and vomiting. 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 Nephrology input noted. DVT/GI prophy
--- NOTE | 2021-01-31 11:01 | Consultation ---
History of Present Illness - Reason for Consult Consult date: 01/31/21 acute renal failure, hyponatremia - History of Present Illness The patient is a 35 YO female with history significant for Hypertension (not taking any meds), Tobacco smoking, Methamphetamine use, medical non-compliance and 38 weeks who presented to [facility] labor unti with c/o sob. Reports history of term x3 and term C/S x1 for breech in 2019. She only been to care once during the entire . Patient was diagnosed with HELLP syndrome and had 01/30. Patient denies any N, V, D, fever, chills, cough, cp, leg swelling, dysuria, hematuria, dizziness, syncope or jaundice. Denies any Etoh and NSAID intake. Labs notable for Sodium 125, K 5.4, BUN 43, Creat 1.6 and elevated ALT & AST. Nephrology was consulted for evaluation and treatment of CASSIE and hyponatremia. Past History Past Medical History: other (See HPI.) Social history: other (admitted to meth use 3 weeks ago) Medications and Allergies Allergies Allergy/AdvReac Type Severity Reaction Status Date / Time No Known Allergies Allergy Unverified 03/23/18 14:50 Home Medications Medication Instructions Recorded Confirmed Last Taken Type Ibuprofen [Motrin 800 MG tab] 800 mg PO TID PRN #30 tablet 03/23/18 Unknown Rx Lidocain2.5%/Prilocai2.5% [Emla] 5 gm TP ONCE #1 tube 03/23/18 Unknown Rx oxyCODONE /ACETAMINOPHEN [Percocet 1 - 2 tab PO Q4HR PRN #15 tablet 03/23/18 Unknown Rx 5/325 mg] labetaloL [Labetalol 200mg TAB] 200 mg PO BID #60 tablet 03/26/18 Unknown Rx HYDROcodone/APAP 5-325 [Fitzhugh 1 each PO Q6HR PRN #10 tablet 08/27/19 Unknown Rx 5/325] Ibuprofen [Motrin 800 MG tab] 800 mg PO Q8HR PRN #15 tablet 08/27/19 Unknown Rx Docusate Sodium [Colace] 100 mg PO BID PRN #60 capsule 01/30/21 Unknown Rx Ferrous Sulfate [Feosol 325 MG tab] 325 mg PO QDAY #60 tablet 01/30/21 Unknown Rx Ibuprofen [Motrin 800 MG tab] 800 mg PO Q8HR PRN #30 tablet 01/30/21 Unknown Rx oxyCODONE /ACETAMINOPHEN [Percocet 1 tab PO Q4HR #15 tab 01/30/21 Unknown Rx 5/325] Active Meds: Active Medications Diphtheria/Tetanus/Acell Pertussis (Tetanus,Diph,Pertuss(Acell) Vaccine 0.5 Ml Syringe) 0.5 ml IM .ONCE ONE Stop: 01/31/21 19:46 Ferrous Sulfate (Ferrous Sulfate 325 Mg Tab) 325 mg PO QDAY [facility] Last Admin: 01/31/21 10:01 Dose: 325 mg Documented by: Hydralazine HCl (Hydralazine 20 Mg/1 Ml Inj) 10 mg IV ONCE PRN PRN Reason: Hypertension Hydromorphone HCl (Hydromorphone 1 Mg/1 Ml Inj) 0.25 mg IV Q4H PRN PRN Reason: Pain , MODERATE(4-6) Last Admin: 01/31/21 09:06 Dose: 0.25 mg Documented by: Hydromorphone HCl (Hydromorphone 1 Mg/1 Ml Inj) 0.5 mg IV Q4H PRN PRN Reason: Pain , Severe (7-10) Oxytocin/Sodium Chloride (Pitocin/Ns 30 Unit/500ml) 30 units in 500 mls @ 0 mls/hr IV TITR JONATAN; Protocol Sodium Chloride (Nacl 0.9% 1000 Ml) 1,000 mls @ 125 mls/hr IV DIRECT JONATAN Cefazolin Sodium (Ancef/Ns 1 Gm/50 Ml) 1 gm in 50 mls @ 100 mls/hr IV Q8H [facility]; Protocol Stop: 01/31/21 18:29 Labetalol HCl (Labetalol 200 Mg Tab) 300 mg PO BID [facility] Last Admin: 01/31/21 10:02 Dose: 300 mg Documented by: Lidocaine/Prilocaine (Emla Cream 5 Gm) 1 applic TP ONCE PRN PRN Reason: for winchester catheter insertion Multi-Ingredient Ointment (Lanolin/Zinc/Dimethicone (Lansinoh) 7 Gm) 1 applic TP PRN PRN PRN Reason: dryness/cracking Naloxone HCl (Naloxone 0.4 Mg/1 Ml Inj) 0.2 mg IV Q2MIN PRN PRN Reason: Res Rate </= 8 or 02 SAT < 92% Naloxone HCl (Naloxone 0.4 Mg/1 Ml Inj) 0.1 mg IV Q2MIN PRN PRN Reason: Res Rate </= 8 or 02 SAT < 92% Ondansetron HCl (Ondansetron 4 Mg/2 Ml Inj) 4 mg IV Q8H PRN PRN Reason: Nausea And Vomiting Simethicone (Simethicone 80 Mg Chew Tab) 80 mg PO Q6H PRN PRN Reason: Gas pain Sodium Bicarbonate (Sodium Bicarbonate 650 Mg Tab) 1,300 mg PO TID JONATAN Sodium Chloride (Sodium Chloride 0.9% 10 Ml Flush Syringe) 10 ml IV PRN NR Stop: 02/09/21 19:59 Witch Connie/Glycerin (Witch Connie/ Glycerin Pad) 1 each TP PRN PRN PRN Reason: Hemorrhoids/cleansing/soothing Review of Systems All systems: negative Exam - Vital Signs Vital signs: Vital Signs Pulse BP Pulse Ox 117 H 177/121 100 01/30/21 15:43 01/30/21 15:43 01/30/21 15:43 Results - Lab Results 01/31/21 09:00 01/31/21 09:00 Most recent lab results Calcium 7.1 mg/dL (8.4-10.2) L 01/31/21 09:00 Magnesium 6.20 mg/dL (1.7-2.3) H 01/31/21 09:00 Urine Creatinine 95.7 mg/dL (0.1-20.0) H 01/30/21 Unknown Urine Total Protein 776 mg/dL (5-11.8) H 01/30/21 Unknown Assessment and Plan 1. Acute kidney injury: CASSIE in the setting of HELLP syndrome. Urine studies and Renal US ordered. Has winchester catheter. Continue IV fluids. Monitor renal function. Avoid nephrotoxic agents. Meds dosage based on GFR. 2. FEN: Mild hyperkalemia, monitor. Metabolic acidosis, 2/2 CASSIE, Sod bicarb drip, monitor. Hyponatremia, ?cause, continue IV fluids, monitor. Urine and serum Osm ordered. Replete lytes as needed. Monitor lytes and volume status. 3. Leukocytosis, POA: Monitor. 4. HEELP syndrome. 5. Anemia, POA: Trend. 6. S/p 01/30. Subjective: Patient was seen and examined at the bedside. RN at the bedside. Examination: General appearance: well-developed, appears stated age, no distress HEENT: atraumatic, no jaundice Neck: trachea midline Respiratory: ctab Heart: S1S2, regular, no murmur Abdomen: soft, bowel sounds heard, lower abd dressing, tenderness noted Integumentary: no rash on the inspected area Neurologic: AO, able to move extremities Ext: no edema : Winchester catheter
[2021-01-31] MEDS: SODIUM BICARBONATE 650 MG TAB PO SCH ×2 (14:19→20:15)
[2021-01-31 14:42] LABS: Calcium 6.7 mg/dL (8.4-10.2)
[2021-01-31 15:09] LABS: Albumin 2.1 g/dL (3.9-5); Bilirubin,Direct 0.2 mg/dL (0-0.2)
[2021-01-31 15:27] LABS: Creatinine,Urine < 4.2 mg/dL (0.1-20.0)
[2021-01-31 15:29] LABS: Osmolality,Urine 529 Mosm/kg
--- NOTE | 2021-01-31 17:00 | Ultrasound Report ---
ULTRASOUND RENAL INDICATION / CLINICAL INFORMATION: Acute renal failure.. COMPARISON: None available. FINDINGS: RIGHT KIDNEY: Size (in cm): 12.7 - Echogenicity: Normal. - Cortical Thickness: Normal. - Hydronephrosis: None. - Cyst or mass: No significant abnormality. - Stones: None seen. LEFT KIDNEY: Size (in cm): 12.2 - Echogenicity: Normal. - Cortical Thickness: Normal. - Hydronephrosis: None. - Cyst or mass: No significant abnormality. - Stones: None seen. URINARY BLADDER: Bladder is decompressed and not visualized. FREE FLUID: None. ADDITIONAL FINDINGS: None. IMPRESSION: 1. No significant abnormality. Signer Name: Erick Cheatham MD Signed: 01/31/2021 4:56 PM Workstation Name: [id number]
[2021-01-31] MEDS: SODIUM CHLORIDE 0.9% 1000 ML 1,000 ML IV SCH (17:21)
[2021-01-31] MEDS ORDERED: TETANUS,DIPH,PERTUSS(ACELL) VACCINE 0.5 ML SYRINGE IM ONE (19:45)
--- NOTE | 2021-02-01 01:12 | XRay Report ---
CHEST 1 VIEW 02/01/2021 12:44 AM INDICATION / CLINICAL INFORMATION: Shortness of breath. COMPARISON: None available. FINDINGS: SUPPORT DEVICES: None. HEART / MEDIASTINUM: Borderline heart size. LUNGS / PLEURA: No significant pulmonary or pleural abnormality. No pneumothorax. ADDITIONAL FINDINGS: No significant additional findings. IMPRESSION: Borderline heart size. Signer Name: Scott Artis MD Signed: 02/01/2021 1:08 AM Workstation Name: [id number]
[2021-02-01] MEDS: HYDROmorphone 1 MG/1 ML INJ IV PRN ×4 (02:43→22:07)
[2021-02-01] MEDS: SODIUM CHLORIDE 0.9% 1000 ML 1,000 ML IV SCH (02:51)
[2021-02-01 06:41] LABS: Albumin 2.1 g/dL (3.9-5); Calcium 6.6 mg/dL (8.4-10.2)
--- NOTE | 2021-02-01 09:07 | Progress Note ---
<VIRIDIANA MCFARLAND - Last Filed: 02/01/21 10:44> Assessment and Plan A: 35 y.o. s/p , POD #2, HELLP syndrome. Acute Kidney Injury. Hyperkalemia and hyponatremia. - Patient Problems (1) Hemolysis, elevated liver enzymes, and low platelet (HELLP) syndrome during , delivered Current Visit: Yes Status: Acute Plan to address problem: Continue to monitor labs. Continue to monitor blood pressures. Urine and renal studies completed per nephrology Pt will continue to be followed by nephrology, hospitalist. Per rail washer this AM: Hold IV fluids. Nephrology Recommendations: CASSIE in the setting of HELLP syndrome. Has winchester catheter. Hold IV fluids. Monitor renal function. Avoid nephrotoxic agents. Meds dosage based on GFR. Mild hyperkalemia, monitor. Metabolic acidosis, 2/2 CASSIE, Sod bicarb drip, monitor. Hyponatremia , monitor. Replete lytes as needed. Monitor lytes and volume status. Regarding Chest x-ray findings: Cardiology consult placed. Awaiting further recommendations. Hospitalist Recommendations: Continue supportive care Gently hydration AND Monitor sodium not to over correct Monitor for any fever development Nephrology input noted Ensure leukocytosis trending down Counselling on tobacco cessation and substance abuse cessation Will follow and make further recommendations as patients care progress. Nephrology input noted. DVT/GI prophy (2) delivery delivered Onset Date: ~03/23/18 Current Visit: No Status: Acute (3) Hyperkalemia Current Visit: Yes Status: Acute (4) Hyponatremia Current Visit: Yes Status: Acute (5) Chronic hypertension Current Visit: No Status: Acute Subjective - Subjective Date of service: 02/01/21 Principal diagnosis: s/p , POD #2, HELLP Syndrome, hyperkalemia, hyponatremia Patient reports: appetite normal, pain well controlled : doing well, in NICU Objective - Vital Signs Latest vital signs: Vital Signs Temp Pulse Resp BP BP Pulse Ox Pulse Ox 02/01/21 07:02 18 02/01/21 06:32 18 02/01/21 05:55 71 136/87 02/01/21 04:54 71 121/75 02/01/21 04:45 71 18 121/75 100 02/01/21 03:54 67 126/82 02/01/21 03:13 18 02/01/21 02:55 68 116/78 02/01/21 02:47 70 118/86 02/01/21 02:43 18 02/01/21 01:57 67 88 02/01/21 01:55 74 95 02/01/21 01:50 67 100 02/01/21 01:45 70 100 02/01/21 01:40 66 100 02/01/21 01:35 66 100 02/01/21 01:30 67 100 02/01/21 01:25 67 100 02/01/21 01:20 65 100 02/01/21 01:15 64 100 02/01/21 01:10 65 100 02/01/21 01:05 66 100 02/01/21 01:00 65 100 02/01/21 00:55 64 109/56 100 02/01/21 00:50 65 100 02/01/21 00:45 65 100 02/01/21 00:40 72 100 02/01/21 00:35 67 100 02/01/21 00:17 97.9 F 63 18 96/60 100 01/31/21 23:55 63 96/60 01/31/21 22:55 67 106/74 01/31/21 22:29 18 01/31/21 21:59 18 01/31/21 21:55 78 118/90 01/31/21 21:54 78 118/90 01/31/21 20:54 98.7 F 75 18 120/88 120/88 100 01/31/21 20:10 100 01/31/21 19:55 71 121/86 01/31/21 18:55 71 119/84 01/31/21 17:54 72 118/86 01/31/21 14:57 76 0 L 01/31/21 14:55 68 113/89 01/31/21 14:53 71 100 01/31/21 14:48 72 99 01/31/21 14:43 82 0 L 01/31/21 14:41 91 H 90 01/31/21 14:38 71 96 01/31/21 14:35 83 80 L 01/31/21 14:33 75 98 01/31/21 14:28 70 98 01/31/21 14:23 71 91 01/31/21 14:21 72 87 01/31/21 14:18 71 98 01/31/21 14:13 73 99 01/31/21 14:12 71 94 01/31/21 14:08 77 98 01/31/21 14:03 75 100 01/31/21 13:58 74 100 01/31/21 13:57 37 L 77 L 01/31/21 13:53 97.7 F 73 18 100 01/31/21 13:48 76 99 01/31/21 13:45 74 105/81 01/31/21 13:43 76 100 01/31/21 13:38 76 98 01/31/21 13:33 75 99 01/31/21 13:30 76 102/81 01/31/21 13:28 76 99 01/31/21 13:23 76 99 01/31/21 13:18 76 100 01/31/21 13:16 73 104/74 01/31/21 13:13 78 99 01/31/21 13:08 75 100 01/31/21 13:03 76 100 01/31/21 13:01 75 105/82 01/31/21 12:58 76 98 01/31/21 12:53 77 98 01/31/21 12:48 79 99 01/31/21 12:45 76 108/82 01/31/21 12:43 78 98 01/31/21 12:38 89 78 L 01/31/21 12:36 76 91 01/31/21 12:33 80 98 01/31/21 12:30 79 112/88 01/31/21 12:28 81 100 01/31/21 12:23 82 99 01/31/21 12:18 82 100 01/31/21 12:16 80 118/85 01/31/21 12:13 82 99 01/31/21 12:08 84 99 01/31/21 12:03 85 99 01/31/21 12:01 85 122/82 01/31/21 11:58 89 100 01/31/21 11:53 89 81 L 01/31/21 11:48 85 85 01/31/21 11:45 86 125/88 01/31/21 11:43 87 100 01/31/21 11:38 86 100 01/31/21 11:33 84 100 01/31/21 11:31 84 120/84 01/31/21 11:28 85 100 01/31/21 11:23 86 98 01/31/21 11:18 88 99 01/31/21 11:15 83 133/97 01/31/21 11:14 81 92 01/31/21 11:13 87 98 01/31/21 11:08 85 98 01/31/21 11:03 86 97 01/31/21 11:00 83 135/101 01/31/21 10:58 86 97 01/31/21 10:53 86 99 01/31/21 10:48 84 99 01/31/21 10:46 85 131/99 01/31/21 10:43 85 99 01/31/21 10:38 85 98 01/31/21 10:33 86 100 01/31/21 10:31 85 132/99 01/31/21 10:28 85 98 01/31/21 10:23 87 97 01/31/21 10:18 86 100 01/31/21 10:15 86 128/100 01/31/21 10:13 85 84 01/31/21 10:08 89 86 01/31/21 10:03 86 100 01/31/21 10:02 85 132/100 01/31/21 10:01 86 132/102 01/31/21 09:58 87 100 01/31/21 09:53 89 95 01/31/21 09:50 88 92 01/31/21 09:48 87 77 L 01/31/21 09:46 87 136/100 01/31/21 09:45 64 88 01/31/21 09:43 88 100 01/31/21 09:38 88 100 01/31/21 09:37 93 01/31/21 09:33 87 98 01/31/21 09:30 85 130/92 01/31/21 09:28 86 99 01/31/21 09:23 85 99 01/31/21 09:18 90 91 01/31/21 09:16 83 133/92 01/31/21 09:13 85 99 01/31/21 09:08 84 97 Pulse Ox 02/01/21 07:02 02/01/21 06:32 02/01/21 05:55 02/01/21 04:54 02/01/21 04:45 02/01/21 03:54 02/01/21 03:13 02/01/21 02:55 02/01/21 02:47 02/01/21 02:43 02/01/21 01:57 02/01/21 01:55 02/01/21 01:50 02/01/21 01:45 02/01/21 01:40 02/01/21 01:35 02/01/21 01:30 02/01/21 01:25 02/01/21 01:20 02/01/21 01:15 02/01/21 01:10 02/01/21 01:05 02/01/21 01:00 02/01/21 00:55 02/01/21 00:50 02/01/21 00:45 02/01/21 00:40 02/01/21 00:35 02/01/21 00:17 01/31/21 23:55 01/31/21 22:55 01/31/21 22:29 01/31/21 21:59 01/31/21 21:55 01/31/21 21:54 01/31/21 20:54 01/31/21 20:10 99 01/31/21 19:55 01/31/21 18:55 01/31/21 17:54 01/31/21 14:57 01/31/21 14:55 01/31/21 14:53 01/31/21 14:48 01/31/21 14:43 01/31/21 14:41 01/31/21 14:38 01/31/21 14:35 01/31/21 14:33 01/31/21 14:28 01/31/21 14:23 01/31/21 14:21 01/31/21 14:18 01/31/21 14:13 01/31/21 14:12 01/31/21 14:08 01/31/21 14:03 01/31/21 13:58 01/31/21 13:57 01/31/21 13:53 01/31/21 13:48 01/31/21 13:45 01/31/21 13:43 01/31/21 13:38 01/31/21 13:33 01/31/21 13:30 01/31/21 13:28 01/31/21 13:23 01/31/21 13:18 01/31/21 13:16 01/31/21 13:13 01/31/21 13:08 01/31/21 13:03 01/31/21 13:01 01/31/21 12:58 01/31/21 12:53 01/31/21 12:48 01/31/21 12:45 01/31/21 12:43 01/31/21 12:38 01/31/21 12:36 01/31/21 12:33 01/31/21 12:30 01/31/21 12:28 01/31/21 12:23 01/31/21 12:18 01/31/21 12:16 01/31/21 12:13 01/31/21 12:08 01/31/21 12:03 01/31/21 12:01 01/31/21 11:58 01/31/21 11:53 01/31/21 11:48 01/31/21 11:45 01/31/21 11:43 01/31/21 11:38 01/31/21 11:33 01/31/21 11:31 01/31/21 11:28 01/31/21 11:23 01/31/21 11:18 01/31/21 11:15 01/31/21 11:14 01/31/21 11:13 01/31/21 11:08 01/31/21 11:03 01/31/21 11:00 01/31/21 10:58 01/31/21 10:53 01/31/21 10:48 01/31/21 10:46 01/31/21 10:43 01/31/21 10:38 01/31/21 10:33 01/31/21 10:31 01/31/21 10:28 01/31/21 10:23 01/31/21 10:18 01/31/21 10:15 01/31/21 10:13 01/31/21 10:08 01/31/21 10:03 01/31/21 10:02 01/31/21 10:01 01/31/21 09:58 01/31/21 09:53 01/31/21 09:50 01/31/21 09:48 01/31/21 09:46 01/31/21 09:45 01/31/21 09:43 01/31/21 09:38 01/31/21 09:37 01/31/21 09:33 01/31/21 09:30 01/31/21 09:28 01/31/21 09:23 01/31/21 09:18 01/31/21 09:16 01/31/21 09:13 01/31/21 09:08 Intake and Output 01/31/21 02/01/21 02/01/21 22:59 06:59 14:59 Intake Total 1600 Output Total 500 Balance 1100 Intake: IV 1000 NaCl 0.9% 1000 ml 1,000 1000 ml @ 125 mls/hr IV DIRECT JONATAN Rx#:[id number] Oral 600 Output: Urine 500 Indwelling Catheter 500 Other: Total, Intake Amount 360 Total, Output Amount 200 - Exam Narrative Exam: Pt with some shortness of breath. Oxygen at 2L NC at this time. Nephrology MD also at bedside for assessment. His recommendation is to discontinue IV fluid. He also states that he will look at her labs and vitals and make further recommendations. Pt denies PEREZ, blurred vision, spots before her eyes, shortness of breath, and upper abdominal pain. We discussed the results of her chest x-ray and the need for a cardiology consult. Chest X-ray resulted as borderline heart size. We also discussed that she will need to sit in the chair or sit on the side of the bed. The goal is to get her to ambulate. Pt verbalized understanding of this plan for the day. Breasts: Present: deferred Cardiovascular: Present: Normal S1 Lungs: Present: Clear to auscultation Abdomen: Present: normal appearance, soft, normal bowel sounds Vulva: both: normal Uterus: Present: normal, firm Extremities: Present: edema (+1 to +2 edema) Incision: Present: normal, dry, other (Dressing removed. No s/sx of infection and no drainage noted. ) - Labs Labs: Abnormal lab results 01/31/21 01/31/21 01/31/21 Range/Units 09:00 09:00 09:00 WBC 16.8 H (4.5-11.0) K/mm3 Hgb 9.7 L (10.1-14.3) gm/dl MCH 25 L (28-32) pg RDW 18.3 H (13.2-15.2) % PT (12.2-14.9) Sec. Sodium 125 L (137-145) mmol/L Potassium 5.4 H (3.6-5.0) mmol/L Chloride (98-107) mmol/L Carbon Dioxide 14 L (22-30) mmol/L BUN 43 H (7-17) mg/dL Creatinine 1.6 H (0.6-1.2) mg/dL Glucose 122 H (65-100) mg/dL Calcium 7.1 L (8.4-10.2) mg/dL Magnesium 6.20 H (1.7-2.3) mg/dL AST 191 H (5-40) units/L ALT 140 H (7-56) units/L Alkaline Phosphatase 135 H (35-129) units/L Lactate Dehydrogenase (91-180) units/L Total Protein 5.1 L (6.3-8.2) g/dL Albumin 2.3 L (3.9-5) g/dL 01/31/21 01/31/21 01/31/21 Range/Units 09:00 14:05 14:05 WBC (4.5-11.0) K/mm3 Hgb (10.1-14.3) gm/dl MCH (28-32) pg RDW (13.2-15.2) % PT 15.7 H (12.2-14.9) Sec. Sodium 124 L (137-145) mmol/L Potassium 5.4 H (3.6-5.0) mmol/L Chloride 97.3 L (98-107) mmol/L Carbon Dioxide 13 L (22-30) mmol/L BUN 46 H (7-17) mg/dL Creatinine 1.8 H (0.6-1.2) mg/dL Glucose 138 H (65-100) mg/dL Calcium 6.7 L (8.4-10.2) mg/dL Magnesium (1.7-2.3) mg/dL AST 176 H (5-40) units/L ALT 137 H (7-56) units/L Alkaline Phosphatase (35-129) units/L Lactate Dehydrogenase 569 H (91-180) units/L Total Protein 4.9 L (6.3-8.2) g/dL Albumin 2.1 L (3.9-5) g/dL 02/01/21 Range/Units 05:57 WBC (4.5-11.0) K/mm3 Hgb (10.1-14.3) gm/dl MCH (28-32) pg RDW (13.2-15.2) % PT (12.2-14.9) Sec. Sodium 123 L (137-145) mmol/L Potassium 5.8 H (3.6-5.0) mmol/L Chloride 95.1 L (98-107) mmol/L Carbon Dioxide 15 L (22-30) mmol/L BUN 49 H (7-17) mg/dL Creatinine 2.0 H (0.6-1.2) mg/dL Glucose 110 H (65-100) mg/dL Calcium 6.6 L (8.4-10.2) mg/dL Magnesium (1.7-2.3) mg/dL AST 112 H (5-40) units/L ALT 98 H (7-56) units/L Alkaline Phosphatase (35-129) units/L Lactate Dehydrogenase (91-180) units/L Total Protein 4.9 L (6.3-8.2) g/dL Albumin 2.1 L (3.9-5) g/dL <NANCY GAFFNEY - Last Filed: 02/01/21 10:59> Assessment and Plan No care, +methamphetamine, Enlarged heart - Patient Problems (1) Methamphetamine abuse Current Visit: Yes Status: Chronic (2) Body mass index 33.0-33.9, adult Current Visit: Yes Status: Chronic (3) Enlarged heart Current Visit: Yes Status: Acute Plan to address problem: On CXR Abnormal EKG Cardiology consulted, ECHO ordered (4) Acute kidney injury Current Visit: Yes Status: Acute Plan to address problem: UO improving, she had 300mL/4hours Creatinine increased Appreciate Nephrology assistance (5) Hemolysis, elevated liver enzymes, and low platelet (HELLP) syndrome during , delivered Current Visit: Yes Status: Acute Plan to address problem: LFTs improving, will recheck in am Plts, BP's stable Continue Labetalol 30mg bid (6) Hyperkalemia Current Visit: Yes Status: Acute (7) Hyponatremia Current Visit: Yes Status: Acute (8) Uterine scar from previous delivery Current Visit: Yes Status: Acute Plan to address problem: No s/s infection (9) No care in current Current Visit: Yes Status: Acute Objective - Vital Signs Latest vital signs: Vital Signs Temp Pulse Resp BP BP Pulse Ox Pulse Ox 02/01/21 10:45 82 78 L 02/01/21 10:44 91 02/01/21 10:39 44 L 83 L 02/01/21 10:34 75 124/87 98 02/01/21 10:29 93 H 87 02/01/21 10:23 74 83 L 02/01/21 10:17 76 96 02/01/21 10:15 77 87 02/01/21 10:11 69 100 02/01/21 10:06 117 H 86 02/01/21 10:03 52 L 91 02/01/21 10:01 73 100 02/01/21 09:56 71 100 02/01/21 09:51 71 86 02/01/21 09:46 73 100 02/01/21 09:41 73 100 02/01/21 09:38 74 0 L 02/01/21 09:36 100 H 96 02/01/21 09:33 72 76 L 02/01/21 09:31 74 100 02/01/21 09:28 76 78 L 02/01/21 09:26 74 97 02/01/21 09:21 63 86 02/01/21 09:16 74 100 02/01/21 09:11 73 100 02/01/21 09:09 73 131/92 02/01/21 08:00 100 02/01/21 07:02 18 02/01/21 06:32 18 02/01/21 05:55 71 136/87 02/01/21 04:54 71 121/75 02/01/21 04:45 71 18 121/75 100 02/01/21 03:54 67 126/82 02/01/21 03:13 18 02/01/21 02:55 68 116/78 02/01/21 02:47 70 118/86 02/01/21 02:43 18 02/01/21 01:57 67 88 02/01/21 01:55 74 95 02/01/21 01:50 67 100 02/01/21 01:45 70 100 02/01/21 01:40 66 100 02/01/21 01:35 66 100 02/01/21 01:30 67 100 02/01/21 01:25 67 100 02/01/21 01:20 65 100 02/01/21 01:15 64 100 02/01/21 01:10 65 100 02/01/21 01:05 66 100 02/01/21 01:00 65 100 02/01/21 00:55 64 109/56 100 02/01/21 00:50 65 100 02/01/21 00:45 65 100 02/01/21 00:40 72 100 02/01/21 00:35 67 100 02/01/21 00:17 97.9 F 63 18 96/60 100 01/31/21 23:55 63 96/60 01/31/21 22:55 67 106/74 01/31/21 22:29 18 01/31/21 21:59 18 01/31/21 21:55 78 118/90 01/31/21 21:54 78 118/90 01/31/21 20:54 98.7 F 75 18 120/88 120/88 100 01/31/21 20:10 100 01/31/21 19:55 71 121/86 01/31/21 18:55 71 119/84 01/31/21 17:54 72 118/86 01/31/21 14:57 76 0 L 01/31/21 14:55 68 113/89 01/31/21 14:53 71 100 01/31/21 14:48 72 99 01/31/21 14:43 82 0 L 01/31/21 14:41 91 H 90 01/31/21 14:38 71 96 01/31/21 14:35 83 80 L 01/31/21 14:33 75 98 01/31/21 14:28 70 98 01/31/21 14:23 71 91 01/31/21 14:21 72 87 01/31/21 14:18 71 98 01/31/21 14:13 73 99 01/31/21 14:12 71 94 01/31/21 14:08 77 98 01/31/21 14:03 75 100 01/31/21 13:58 74 100 01/31/21 13:57 37 L 77 L 01/31/21 13:53 97.7 F 73 18 100 01/31/21 13:48 76 99 01/31/21 13:45 74 105/81 01/31/21 13:43 76 100 01/31/21 13:38 76 98 01/31/21 13:33 75 99 01/31/21 13:30 76 102/81 01/31/21 13:28 76 99 01/31/21 13:23 76 99 01/31/21 13:18 76 100 01/31/21 13:16 73 104/74 01/31/21 13:13 78 99 01/31/21 13:08 75 100 01/31/21 13:03 76 100 01/31/21 13:01 75 105/82 01/31/21 12:58 76 98 01/31/21 12:53 77 98 01/31/21 12:48 79 99 01/31/21 12:45 76 108/82 01/31/21 12:43 78 98 01/31/21 12:38 89 78 L 01/31/21 12:36 76 91 01/31/21 12:33 80 98 01/31/21 12:30 79 112/88 01/31/21 12:28 81 100 01/31/21 12:23 82 99 01/31/21 12:18 82 100 01/31/21 12:16 80 118/85 01/31/21 12:13 82 99 01/31/21 12:08 84 99 01/31/21 12:03 85 99 01/31/21 12:01 85 122/82 01/31/21 11:58 89 100 01/31/21 11:53 89 81 L 01/31/21 11:48 85 85 01/31/21 11:45 86 125/88 01/31/21 11:43 87 100 01/31/21 11:38 86 100 01/31/21 11:33 84 100 01/31/21 11:31 84 120/84 01/31/21 11:28 85 100 01/31/21 11:23 86 98 01/31/21 11:18 88 99 01/31/21 11:15 83 133/97 01/31/21 11:14 81 92 01/31/21 11:13 87 98 01/31/21 11:08 85 98 01/31/21 11:03 86 97 01/31/21 11:00 83 135/101 01/31/21 10:58 86 97 01/31/21 10:53 86 99 Pulse Ox 02/01/21 10:45 02/01/21 10:44 02/01/21 10:39 02/01/21 10:34 02/01/21 10:29 02/01/21 10:23 02/01/21 10:17 02/01/21 10:15 02/01/21 10:11 02/01/21 10:06 02/01/21 10:03 02/01/21 10:01 02/01/21 09:56 02/01/21 09:51 02/01/21 09:46 02/01/21 09:41 02/01/21 09:38 02/01/21 09:36 02/01/21 09:33 02/01/21 09:31 02/01/21 09:28 02/01/21 09:26 02/01/21 09:21 02/01/21 09:16 02/01/21 09:11 02/01/21 09:09 02/01/21 08:00 99 02/01/21 07:02 02/01/21 06:32 02/01/21 05:55 02/01/21 04:54 02/01/21 04:45 02/01/21 03:54 02/01/21 03:13 02/01/21 02:55 02/01/21 02:47 02/01/21 02:43 02/01/21 01:57 02/01/21 01:55 02/01/21 01:50 02/01/21 01:45 02/01/21 01:40 02/01/21 01:35 02/01/21 01:30 02/01/21 01:25 02/01/21 01:20 02/01/21 01:15 02/01/21 01:10 02/01/21 01:05 02/01/21 01:00 02/01/21 00:55 02/01/21 00:50 02/01/21 00:45 02/01/21 00:40 02/01/21 00:35 02/01/21 00:17 01/31/21 23:55 01/31/21 22:55 01/31/21 22:29 01/31/21 21:59 01/31/21 21:55 01/31/21 21:54 01/31/21 20:54 01/31/21 20:10 99 01/31/21 19:55 01/31/21 18:55 01/31/21 17:54 01/31/21 14:57 01/31/21 14:55 01/31/21 14:53 01/31/21 14:48 01/31/21 14:43 01/31/21 14:41 01/31/21 14:38 01/31/21 14:35 01/31/21 14:33 01/31/21 14:28 01/31/21 14:23 01/31/21 14:21 01/31/21 14:18 01/31/21 14:13 01/31/21 14:12 01/31/21 14:08 01/31/21 14:03 01/31/21 13:58 01/31/21 13:57 01/31/21 13:53 01/31/21 13:48 01/31/21 13:45 01/31/21 13:43 01/31/21 13:38 01/31/21 13:33 01/31/21 13:30 01/31/21 13:28 01/31/21 13:23 01/31/21 13:18 01/31/21 13:16 01/31/21 13:13 01/31/21 13:08 01/31/21 13:03 01/31/21 13:01 01/31/21 12:58 01/31/21 12:53 01/31/21 12:48 01/31/21 12:45 01/31/21 12:43 01/31/21 12:38 01/31/21 12:36 01/31/21 12:33 01/31/21 12:30 01/31/21 12:28 01/31/21 12:23 01/31/21 12:18 01/31/21 12:16 01/31/21 12:13 01/31/21 12:08 01/31/21 12:03 01/31/21 12:01 01/31/21 11:58 01/31/21 11:53 01/31/21 11:48 01/31/21 11:45 01/31/21 11:43 01/31/21 11:38 01/31/21 11:33 01/31/21 11:31 01/31/21 11:28 01/31/21 11:23 01/31/21 11:18 01/31/21 11:15 01/31/21 11:14 01/31/21 11:13 01/31/21 11:08 01/31/21 11:03 01/31/21 11:00 01/31/21 10:58 01/31/21 10:53 Intake and Output 01/31/21 02/01/21 02/01/21 22:59 06:59 14:59 Intake Total 1600 Output Total 500 Balance 1100 Intake: IV 1000 NaCl 0.9% 1000 ml 1,000 1000 ml @ 125 mls/hr IV DIRECT JONATAN Rx#:[id number] Oral 600 Output: Urine 500 Indwelling Catheter 500 Other: Total, Intake Amount 360 Total, Output Amount 200 - Labs Labs: Abnormal lab results 01/31/21 01/31/21 02/01/21 Range/Units 14:05 14:05 05:57 Sodium 124 L 123 L (137-145) mmol/L Potassium 5.4 H 5.8 H (3.6-5.0) mmol/L Chloride 97.3 L 95.1 L (98-107) mmol/L Carbon Dioxide 13 L 15 L (22-30) mmol/L BUN 46 H 49 H (7-17) mg/dL Creatinine 1.8 H 2.0 H (0.6-1.2) mg/dL Glucose 138 H 110 H (65-100) mg/dL Calcium 6.7 L 6.6 L (8.4-10.2) mg/dL AST 176 H 112 H (5-40) units/L ALT 137 H 98 H (7-56) units/L Lactate Dehydrogenase 569 H (91-180) units/L Total Protein 4.9 L 4.9 L (6.3-8.2) g/dL Albumin 2.1 L 2.1 L (3.9-5) g/dL
[2021-02-01] MEDS: FERROUS SULFATE 325 MG TAB PO SCH (09:36)
[2021-02-01] MEDS ORDERED: INSULIN REGULAR, HUMAN 100 UNITS/1 ML IV ONE (09:58)
[2021-02-01] MEDS ORDERED: DEXTROSE 50% IN WATER (25GM) 50 ML VIAL IV ONE (09:58)
--- NOTE | 2021-02-01 11:09 | Consultation ---
History of Present Illness Consult date: 02/01/21 Consult reason: other (cardiomegaly) History of present illness: This is a 35-year-old female presenting with HELLP syndrome status pos t 2 days ago. Postoperatively the patient started complaining of shortness of breath. A chest x-ray was obtained revealing borderline cardiomegaly, therefore cardiac consultation was requested. Currently the patient is asymptomatic. She denies any chest pain or shortness of breath. No signs of volume overload on examination. Patient denies any prior history of cardiac disease. This is her seventh . She did not used to take blood pressure medications prior to or during the . EKG revealing nonischemic T wave abnormalities and prolonged QT interval. Past History Past Medical History: hypertension, hyperlipidemia, other (tobacco) Past Surgical History: Social history: single, other (admitted to meth use 3 weeks ago) Family history: no significant family history Medications and Allergies Allergies Allergy/AdvReac Type Severity Reaction Status Date / Time No Known Allergies Allergy Unverified 03/23/18 14:50 Home Medications Medication Instructions Recorded Confirmed Last Taken Type No Known Home Medications [No 01/31/21 01/31/21 Unknown History Reported Home Medications] Active Meds: Active Medications Ferrous Sulfate (Ferrous Sulfate 325 Mg Tab) 325 mg PO QDAY JONATAN Last Admin: 02/01/21 09:36 Dose: 325 mg Documented by: Hydralazine HCl (Hydralazine 20 Mg/1 Ml Inj) 10 mg IV ONCE PRN PRN Reason: Hypertension Hydromorphone HCl (Hydromorphone 1 Mg/1 Ml Inj) 0.25 mg IV Q4H PRN PRN Reason: Pain , MODERATE(4-6) Last Admin: 02/01/21 06:32 Dose: 0.25 mg Documented by: Hydromorphone HCl (Hydromorphone 1 Mg/1 Ml Inj) 0.5 mg IV Q4H PRN PRN Reason: Pain , Severe (7-10) Last Admin: 02/01/21 02:43 Dose: 0.5 mg Documented by: Oxytocin/Sodium Chloride (Pitocin/Ns 30 Unit/500ml) 30 units in 500 mls @ 0 mls/hr IV TITR JONATAN; Protocol Sodium Bicarbonate 150 meq/ (Dextrose) 1,150 mls @ 100 mls/hr IV DIRECT JONATAN Labetalol HCl (Labetalol 200 Mg Tab) 300 mg PO BID [facility] Last Admin: 02/01/21 09:37 Dose: 300 mg Documented by: Lidocaine/Prilocaine (Emla Cream 5 Gm) 1 applic TP ONCE PRN PRN Reason: for [place] catheter insertion Multi-Ingredient Ointment (Lanolin/Zinc/Dimethicone (Lansinoh) 7 Gm) 1 applic TP PRN PRN PRN Reason: dryness/cracking Naloxone HCl (Naloxone 0.4 Mg/1 Ml Inj) 0.2 mg IV Q2MIN PRN PRN Reason: Res Rate </= 8 or 02 SAT < 92% Naloxone HCl (Naloxone 0.4 Mg/1 Ml Inj) 0.1 mg IV Q2MIN PRN PRN Reason: Res Rate </= 8 or 02 SAT < 92% Ondansetron HCl (Ondansetron 4 Mg/2 Ml Inj) 4 mg IV Q8H PRN PRN Reason: Nausea And Vomiting Simethicone (Simethicone 80 Mg Chew Tab) 80 mg PO Q6H PRN PRN Reason: Gas pain Sodium Bicarbonate (Sodium Bicarbonate 650 Mg Tab) 1,300 mg PO TID [facility] Last Admin: 01/31/21 20:15 Dose: 1,300 mg Documented by: Sodium Chloride (Sodium Chloride 0.9% 10 Ml Flush Syringe) 10 ml IV PRN NR Stop: 02/09/21 19:59 Witch Connie/Glycerin (Witch Connie/ Glycerin Pad) 1 each TP PRN PRN PRN Reason: Hemorrhoids/cleansing/soothing Review of Systems All systems: negative Physical Examination Vital Signs Pulse BP Pulse Ox 117 H 177/121 100 01/30/21 15:43 01/30/21 15:43 01/30/21 15:43 General appearance: no acute distress Neck: Positive: neck supple Cardiac: Positive: Reg Rate and Rhythm Lungs: Positive: Normal Exam Abdomen: Positive: Soft Extremities: Absent: edema Results 01/31/21 09:00 02/01/21 05:57 Cardiac Enzymes 01/31/21 01/31/21 02/01/21 Range/Units 14:05 14:05 05:57 AST 176 H 112 H (5-40) units/L Lactate Dehydrogenase 569 H (91-180) units/L Comprehensive Metabolic Panel 01/31/21 01/31/21 02/01/21 Range/Units 14:05 14:05 05:57 Sodium 124 L 123 L (137-145) mmol/L Potassium 5.4 H 5.8 H (3.6-5.0) mmol/L Chloride 97.3 L 95.1 L (98-107) mmol/L Carbon Dioxide 13 L 15 L (22-30) mmol/L BUN 46 H 49 H (7-17) mg/dL Creatinine 1.8 H 2.0 H (0.6-1.2) mg/dL Glucose 138 H 110 H (65-100) mg/dL Calcium 6.7 L 6.6 L (8.4-10.2) mg/dL Direct Bilirubin 0.2 (0-0.2) mg/dL Indirect Bilirubin 0.1 mg/dL AST 176 H 112 H (5-40) units/L ALT 137 H 98 H (7-56) units/L Alkaline Phosphatase 128 113 (35-129) units/L Total Protein 4.9 L 4.9 L (6.3-8.2) g/dL Albumin 2.1 L 2.1 L (3.9-5) g/dL - EKG Interpretation EKG: sinus rhythm EKG interpretations - Telemetry EKG Rhythm: Sinus Rhythm Assessment and Plan Cardiomegaly noted on chest x-ray. HELLP syndrome status post 2 days ago. Amphetamine abuse. Acute renal failure. Gestational induced hypertension. Multiple electrolyte abnormalities. Recommendations: Proceed with echocardiogram to evaluate LV size and function. Continue labetalol for blood pressure control. Advised amphetamine abstinence. We will continue to follow with you.
--- NOTE | 2021-02-01 11:13 | Progress Note ---
Assessment and Plan Assessment and plan: Assessment and Plan Patient is a 35 year old female with past medical hx of Chronic HTN was taken off lisinpril per patient presented to the hospital for concern of HELLP syndrom e and underwent C section 01/30. She unfortunately had poor care and also has hx of tobacco smoking and methamphetamin use through out her .During visit was noted to have Hyponatremia and Leukocoytosis with worsening renal function We are consulted to assist with management She denies any chest pain, nausea and vomiting. 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 Nephrology input noted. DVT/GI prophy - History of Present Illness Patient is a 35 year old female with past medical hx of Chronic HTN was taken off lisinpril per patient presented to the hospital for concern of HELLP syndrome and underwent C section 01/30. She unfortunately had poor care and also has hx of tobacco smoking and methamphetamin use through out her .During visit was noted to have Hyponatremia and Leukocoytosis with worsening renal function We are consulted to assist with management She denies any chest pain, nausea and vomiting. 02/01/21 Patient is seen and examined. Patient complained of shortness of breath and mild swelling of the body. Patient WBC 16.8, hemoglobin 9.7 hematocrit 31.0. Patient potassium is 5.8, BUN 49 and creatinine 2.0. Patient is on bicarb drip. Kayexalate 30 g p.o. every 4 hours x2 dose. Nephrology follow-up. Cardiology consultation. Echocardiogram. VQ scan rule out PE. Transfer the patient to the telemetry. Recheck CBC BMP in the morning. Continue current management History Interval history: Patient is seen and examined. Patient complained of shortness of breath and mild swelling of the body. Patient WBC 16.8, hemoglobin 9.7 hematocrit 31.0. Patient potassium is 5.8, BUN 49 and creatinine 2.0. Hospitalist Physical - Constitutional Vitals: Temp Pulse Resp BP Pulse Ox 97.9 F 47 L 18 124/87 76 L 02/01/21 00:17 02/01/21 11:01 02/01/21 07:02 02/01/21 10:34 02/01/21 11:01 General appearance: Present: no acute distress - Neck Neck: Present: supple, normal ROM - Respiratory Respiratory effort: normal Respiratory: left: diminished - Cardiovascular Rhythm: regular Heart Sounds: Present: S1 & S2 - Extremities Extremities: no ischemia, pulses intact, No edema Peripheral Pulses: within normal limits - Abdominal General gastrointestinal: soft, non-tender, non-distended, normal bowel sounds - Integumentary Integumentary: Present: clear, warm, dry - Psychiatric Psychiatric: appropriate mood/affect, intact judgment & insight - Neurologic Neurologic: CNII-XII intact, moves all extremities - Allied Health Allied health notes reviewed: nursing Results - Labs CBC & Chem 7: 01/31/21 09:00 02/01/21 05:57 Labs: Laboratory Last Values WBC 16.8 K/mm3 (4.5-11.0) H 01/31/21 09:00 RBC 3.85 M/mm3 (3.65-5.03) 01/31/21 09:00 Hgb 9.7 gm/dl (10.1-14.3) L 01/31/21 09:00 Hct 31.0 % (30.3-42.9) 01/31/21 09:00 MCV 80 fl (79-97) 01/31/21 09:00 MCH 25 pg (28-32) L 01/31/21 09:00 MCHC 31 % (30-34) 01/31/21 09:00 RDW 18.3 % (13.2-15.2) H 01/31/21 09:00 Plt Count 265 K/mm3 (140-440) 01/31/21 09:00 Add Manual Diff Complete 01/31/21 03:30 Total Counted 100 01/31/21 03:30 Seg Neuts % (Manual) 90.0 % (40.0-70.0) H 01/30/21 17:20 Lymphocytes % (Manual) 8.0 % (13.4-35.0) L 01/31/21 03:30 Monocytes % (Manual) 3.0 % (0.0-7.3) 01/30/21 17:20 Nucleated RBC % 3.0 % (0.0-0.9) H 01/31/21 03:30 Seg Neutrophils # Man 16.3 K/mm3 (1.8-7.7) H 01/31/21 03:30 Band Neutrophils # 0.0 K/mm3 01/31/21 03:30 Lymphocytes # (Manual) 1.4 K/mm3 (1.2-5.4) 01/31/21 03:30 Abs React Lymphs (Man) 0.0 K/mm3 01/31/21 03:30 Monocytes # (Manual) 0.0 K/mm3 (0.0-0.8) 01/31/21 03:30 Eosinophils # (Manual) 0.0 K/mm3 (0.0-0.4) 01/31/21 03:30 Basophils # (Manual) 0.0 K/mm3 (0.0-0.1) 01/31/21 03:30 Metamyelocytes # 0.0 K/mm3 01/31/21 03:30 Myelocytes # 0.0 K/mm3 01/31/21 03:30 Promyelocytes # 0.0 K/mm3 01/31/21 03:30 Blast Cells # 0.0 K/mm3 01/31/21 03:30 WBC Morphology Not Reportable 01/31/21 03:30 Hypersegmented Neuts Not Reportable 01/31/21 03:30 Hyposegmented Neuts Not Reportable 01/31/21 03:30 Hypogranular Neuts Not Reportable 01/31/21 03:30 Smudge Cells Not Reportable 01/31/21 03:30 Toxic Granulation Not Reportable 01/31/21 03:30 Toxic Vacuolation Not Reportable 01/31/21 03:30 Dohle Bodies Not Reportable 01/31/21 03:30 Pelger-Huet Anomaly Not Reportable 01/31/21 03:30 Kaley Rods Not Reportable 01/31/21 03:30 Platelet Estimate Consistent w auto 01/31/21 03:30 Clumped Platelets Not Reportable 01/31/21 03:30 Plt Clumps, EDTA Not Reportable 01/31/21 03:30 Large Platelets Not Reportable 01/31/21 03:30 Giant Platelets Not Reportable 01/31/21 03:30 Platelet Satelliting Not Reportable 01/31/21 03:30 Plt Morphology Comment Not Reportable 01/31/21 03:30 RBC Morphology Not Reportable 01/31/21 03:30 Dimorphic RBCs Not Reportable 01/31/21 03:30 Polychromasia Not Reportable 01/31/21 03:30 Hypochromasia Not Reportable 01/31/21 03:30 Poikilocytosis Not Reportable 01/31/21 03:30 Anisocytosis 1+ 01/31/21 03:30 Microcytosis Not Reportable 01/31/21 03:30 Macrocytosis Not Reportable 01/31/21 03:30 Spherocytes Not Reportable 01/31/21 03:30 Pappenheimer Bodies Not Reportable 01/31/21 03:30 Sickle Cells Not Reportable 01/31/21 03:30 Target Cells Not Reportable 01/31/21 03:30 Tear Drop Cells Not Reportable 01/31/21 03:30 Ovalocytes Not Reportable 01/31/21 03:30 Helmet Cells Not Reportable 01/31/21 03:30 Bellamy[place] Bodies Not Reportable 01/31/21 03:30 [place] Rings Not Reportable 01/31/21 03:30 Edwige Cells Not Reportable 01/31/21 03:30 Bite Cells Not Reportable 01/31/21 03:30 Crenated Cell Not Reportable 01/31/21 03:30 Elliptocytes Few 01/31/21 03:30 Acanthocytes (Spur) Not Reportable 01/31/21 03:30 Rouleaux Not Reportable 01/31/21 03:30 Hemoglobin C Crystals Not Reportable 01/31/21 03:30 Schistocytes Not Reportable 01/31/21 03:30 Malaria parasites Not Reportable 01/31/21 03:30 Zachary Bodies Not Reportable 01/31/21 03:30 Hem Pathologist Commnt No 01/31/21 03:30 PT 15.7 Sec. (12.2-14.9) H 01/31/21 09:00 INR 1.13 (0.87-1.13) 01/31/21 09:00 APTT 34.2 Sec. (24.2-36.6) 01/31/21 09:00 Fibrinogen 283 mg/dl (211-480) 01/30/21 23:37 Sodium 123 mmol/L (137-145) L 02/01/21 05:57 Potassium 5.8 mmol/L (3.6-5.0) H 02/01/21 05:57 Chloride 95.1 mmol/L (98-107) L 02/01/21 05:57 Carbon Dioxide 15 mmol/L (22-30) L 02/01/21 05:57 Anion Gap 19 mmol/L 02/01/21 05:57 BUN 49 mg/dL (7-17) H 02/01/21 05:57 Creatinine 2.0 mg/dL (0.6-1.2) H 02/01/21 05:57 Estimated GFR 29 ml/min 02/01/21 05:57 BUN/Creatinine Ratio 25 % 02/01/21 05:57 Glucose 110 mg/dL (65-100) H 02/01/21 05:57 Osmolality 284 Mosm/kg 01/31/21 14:05 Uric Acid 12.1 mg/dL (3.5-7.6) H 01/30/21 17:20 Calcium 6.6 mg/dL (8.4-10.2) L 02/01/21 05:57 Magnesium 6.20 mg/dL (1.7-2.3) H 01/31/21 09:00 Total Bilirubin 0.20 mg/dL (0.1-1.2) 02/01/21 05:57 Direct Bilirubin 0.2 mg/dL (0-0.2) 01/31/21 14:05 Indirect Bilirubin 0.1 mg/dL 01/31/21 14:05 AST 112 units/L (5-40) H 02/01/21 05:57 ALT 98 units/L (7-56) H 02/01/21 05:57 Alkaline Phosphatase 113 units/L (35-129) 02/01/21 05:57 Lactate Dehydrogenase 569 units/L (91-180) H 01/31/21 14:05 Total Protein 4.9 g/dL (6.3-8.2) L 02/01/21 05:57 Albumin 2.1 g/dL (3.9-5) L 02/01/21 05:57 Albumin/Globulin Ratio 0.8 % 02/01/21 05:57 HCG, Quant 58327 mIU/mL (0-4) H 01/30/21 17:20 Urine Color Yellow (Yellow) 01/30/21 Unknown Urine Turbidity Slightly-cloudy (Clear) 01/30/21 Unknown Urine pH 5.0 (5.0-7.0) 01/30/21 Unknown Ur Specific [place] 1.014 (1.003-1.030) 01/30/21 Unknown Urine Protein >500 mg/dL (Negative) 01/30/21 Unknown Urine Glucose (UA) Neg mg/dL (Negative) 01/30/21 Unknown Urine Ketones Neg mg/dL (Negative) 01/30/21 Unknown Urine Blood Sm (Negative) 01/30/21 Unknown Urine Nitrite Neg (Negative) 01/30/21 Unknown Urine Bilirubin Neg (Negative) 01/30/21 Unknown Urine Urobilinogen 4.0 mg/dL (<2.0) 01/30/21 Unknown Ur Leukocyte Esterase Neg (Negative) 01/30/21 Unknown Urine WBC (Auto) 6.0 /HPF (0.0-6.0) 01/30/21 Unknown Urine RBC (Auto) 5.0 /HPF (0.0-6.0) 01/30/21 Unknown U Epithel Cells (Auto) 4.0 /HPF (0-13.0) 01/30/21 Unknown Urine Mucus Few /HPF 01/30/21 Unknown Urine Yeast (Budding) Few /HPF 01/30/21 Unknown Urine Eosinophils None seen (None Seen) 01/31/21 14:42 Urine Osmolality 529 Mosm/kg 01/31/21 14:42 Urine Creatinine < 4.2 mg/dL (0.1-20.0) 01/31/21 14:42 Urine Sodium 11 mmol/L 01/31/21 14:42 Urine Total Protein 776 mg/dL (5-11.8) H 01/30/21 Unknown Urine Opiates Screen Presumptive negative 01/30/21 Unknown Urine Methadone Screen Presumptive negative 01/30/21 Unknown Ur Barbiturates Screen Presumptive negative 01/30/21 Unknown Ur Phencyclidine Scrn Presumptive negative 01/30/21 Unknown Ur Amphetamines Screen Presumptive positive 01/30/21 Unknown U Benzodiazepines Scrn Presumptive negative 01/30/21 Unknown Urine Cocaine Screen Presumptive negative 01/30/21 Unknown U Marijuana (THC) Screen Presumptive negative 01/30/21 Unknown Drugs of Abuse Note Disclamer 01/30/21 Unknown Syphilis IgG Antibody Nonreactive (NonReactive) 01/30/21 17:20 Coronavirus (PCR) Negative (Negative) 01/31/21 Unknown Hep Bs Antigen Nonreactive (Negative) 01/30/21 16:17 Hepatitis C Antibody Non-reactive (NonReactive) 01/30/21 17:20 HIV 1&2 Antibody Rapid Non react (Non React) 01/30/21 17:20 HIV P24 Antigen Non react (Non React) 01/30/21 17:20 Rubella IgG Antibody Immune (Immune) 01/30/21 17:20 Blood Type B POSITIVE 01/30/21 17:20 Antibody Screen Negative 01/30/21 17:20 - Imaging and Cardiology Chest x-ray: report reviewed Active Medications - Current Medications Current Medications: Generic Name Dose Route Start Last Admin Trade Name Freq PRN Reason Stop Dose Admin Ferrous Sulfate 325 mg 01/31/21 10:00 02/01/21 09:36 Ferrous Sulfate 325 Mg Tab PO 325 mg QDAY JONATAN Administration Hydralazine HCl 10 mg 01/31/21 09:00 Hydralazine 20 Mg/1 Ml Inj IV ONCE PRN Hypertension Hydromorphone HCl 0.25 mg 01/31/21 09:00 02/01/21 06:32 Hydromorphone 1 Mg/1 Ml Inj IV 0.25 mg Q4H PRN Administration Pain , MODERATE(4-6) Hydromorphone HCl 0.5 mg 01/31/21 09:00 02/01/21 02:43 Hydromorphone 1 Mg/1 Ml Inj IV 0.5 mg Q4H PRN Administration Pain , Severe (7-10) Oxytocin/Sodium Chloride 30 units in 500 mls @ 0 mls/hr 01/30/21 18:00 Pitocin/Ns 30 Unit/500ml IV TITR JONATAN Protocol As Directed Sodium Bicarbonate 150 meq/ 1,150 mls @ 100 mls/hr 02/01/21 10:00 Dextrose IV DIRECT JONATAN Labetalol HCl 300 mg 01/30/21 22:00 02/01/21 09:37 Labetalol 200 Mg Tab PO 300 mg BID JONATAN Administration Lidocaine/Prilocaine 1 applic 01/30/21 17:18 Emla Cream 5 Gm TP ONCE PRN for winchester catheter insertion Multi-Ingredient Ointment 1 applic 01/30/21 19:40 Lanolin/Zinc/Dimethicone (Lansinoh) 7 Gm TP PRN PRN dryness/cracking Naloxone HCl 0.2 mg 01/30/21 18:14 Naloxone 0.4 Mg/1 Ml Inj IV Q2MIN PRN Res Rate </= 8 or 02 SAT < 92% Naloxone HCl 0.1 mg 01/30/21 19:40 Naloxone 0.4 Mg/1 Ml Inj IV Q2MIN PRN Res Rate </= 8 or 02 SAT < 92% Ondansetron HCl 4 mg 01/30/21 18:14 Ondansetron 4 Mg/2 Ml Inj IV Q8H PRN Nausea And Vomiting Simethicone 80 mg 01/30/21 19:40 Simethicone 80 Mg Chew Tab PO Q6H PRN Gas pain Sodium Bicarbonate 1,300 mg 01/31/21 14:00 01/31/21 20:15 Sodium Bicarbonate 650 Mg Tab PO 1,300 mg TID JONATAN Administration Sodium Chloride 10 ml 01/30/21 20:00 Sodium Chloride 0.9% 10 Ml Flush Syringe IV 02/09/21 19:59 PRN NR Sodium Polystyrene Sulfonate 30 gm 02/01/21 12:00 Sodium Polystyrene 15 Gm/60 Ml Oral Liqd PO 02/01/21 16:01 Q4H JONATAN Witch Connie/Glycerin 1 each 01/30/21 19:40 Witch Connie/ Glycerin Pad TP PRN PRN Hemorrhoids/cleansing/soothing Nutrition/Malnutrition Assess - Malnutrition Assessment Minimum of two criteria: No - Attestation Statement I have reviewed and agreed w/ Malnutrition eval & tx plan: No
[2021-02-01] MEDS: SODIUM BICARBONATE 150 MEQ in DEXTROSE 5% IN WATER 1,000 ML IV SCH (11:32)
[2021-02-01] MEDS ORDERED: SODIUM POLYSTYRENE 15 GM/60 ML ORAL LIQD PO SCH (12:00)
--- NOTE | 2021-02-01 13:19 | Progress Note ---
Assessment and Plan 1. Acute kidney injury: CASSIE in the setting of HELLP syndrome. Proteinuria noted. Renal US negative. Has winchester catheter. MARYAM, ANCA, GBM Ab and complements ordered. Continue IV fluids. Monitor renal function. Creatinine level is increasing. Avoid nephrotoxic agents. Meds dosage based on GFR. 2. FEN: Hyperkalemia, Kayexalate ordered, monitor. Metabolic acidosis, 2/2 CASSIE, Sod bicarb drip, monitor. Hyponatremia, ?pseudohyponatremia, monitor. Normal serum Osm. Replete lytes as needed. Monitor lytes and volume status. 3. Leukocytosis, POA: Monitor. 4. HEELP syndrome. 5. Anemia, POA: Trend. 6. S/p 01/30. Plan d/w patient and her mother. Subjective: Patient was seen and examined at the bedside. Doing ok. RN and mother at the bedside. Examination: General appearance: well-developed, appears stated age, no distress HEENT: atraumatic, no jaundice Neck: trachea midline Respiratory: ctab Heart: S1S2, regular, no murmur Abdomen: soft, bowel sounds heard, lower abd dressing, slight tenderness noted Integumentary: no rash on the inspected area Neurologic: AO, able to move extremities Ext: ext and dependent edema noted : Winchester catheter Subjective Date of service: 02/01/21 Principal diagnosis: s/p , POD #2, HELLP Syndrome, hyperkalemia, hyponatremia Objective - Vital Signs Vital signs: Vital Signs - 12hr 02/01/21 02/01/21 02/01/21 01:20 01:25 01:30 Temperature Pulse Rate 65 67 67 Respiratory Rate Blood Pressure Blood Pressure [Right] O2 Sat by Pulse 100 100 100 Oximetry O2 Sat by Pulse Oximetry [ Bilateral Throughout] O2 Sat by Pulse Oximetry [ Throughout] 02/01/21 02/01/21 02/01/21 01:35 01:40 01:45 Temperature Pulse Rate 66 66 70 Respiratory Rate Blood Pressure Blood Pressure [Right] O2 Sat by Pulse 100 100 100 Oximetry O2 Sat by Pulse Oximetry [ Bilateral Throughout] O2 Sat by Pulse Oximetry [ Throughout] 02/01/21 02/01/21 02/01/21 01:50 01:55 01:57 Temperature Pulse Rate 67 74 67 Respiratory Rate Blood Pressure Blood Pressure [Right] O2 Sat by Pulse 100 95 88 Oximetry O2 Sat by Pulse Oximetry [ Bilateral Throughout] O2 Sat by Pulse Oximetry [ Throughout] 02/01/21 02/01/21 02/01/21 02:43 02:47 02:55 Temperature Pulse Rate 70 68 Respiratory 18 Rate Blood Pressure 118/86 116/78 Blood Pressure [Right] O2 Sat by Pulse Oximetry O2 Sat by Pulse Oximetry [ Bilateral Throughout] O2 Sat by Pulse Oximetry [ Throughout] 02/01/21 02/01/21 02/01/21 03:13 03:54 04:45 Temperature Pulse Rate 67 71 Respiratory 18 18 Rate Blood Pressure 126/82 Blood Pressure 121/75 [Right] O2 Sat by Pulse 100 Oximetry O2 Sat by Pulse Oximetry [ Bilateral Throughout] O2 Sat by Pulse Oximetry [ Throughout] 02/01/21 02/01/21 02/01/21 04:54 05:55 06:32 Temperature Pulse Rate 71 71 Respiratory 18 Rate Blood Pressure 121/75 136/87 Blood Pressure [Right] O2 Sat by Pulse Oximetry O2 Sat by Pulse Oximetry [ Bilateral Throughout] O2 Sat by Pulse Oximetry [ Throughout] 02/01/21 02/01/21 02/01/21 07:02 08:00 09:09 Temperature 97.5 F L Pulse Rate 74 73 Respiratory 18 18 Rate Blood Pressure 131/92 Blood Pressure 130/92 [Right] O2 Sat by Pulse 100 Oximetry O2 Sat by Pulse 100 Oximetry [ Bilateral Throughout] O2 Sat by Pulse 99 Oximetry [ Throughout] 02/01/21 02/01/21 02/01/21 09:11 09:16 09:21 Temperature Pulse Rate 73 74 63 Respiratory Rate Blood Pressure Blood Pressure [Right] O2 Sat by Pulse 100 100 86 Oximetry O2 Sat by Pulse Oximetry [ Bilateral Throughout] O2 Sat by Pulse Oximetry [ Throughout] 02/01/21 02/01/21 02/01/21 09:26 09:28 09:31 Temperature Pulse Rate 74 76 74 Respiratory Rate Blood Pressure Blood Pressure [Right] O2 Sat by Pulse 97 78 L 100 Oximetry O2 Sat by Pulse Oximetry [ Bilateral Throughout] O2 Sat by Pulse Oximetry [ Throughout] 02/01/21 02/01/21 02/01/21 09:33 09:36 09:38 Temperature Pulse Rate 72 100 H 74 Respiratory Rate Blood Pressure Blood Pressure [Right] O2 Sat by Pulse 76 L 96 0 L Oximetry O2 Sat by Pulse Oximetry [ Bilateral Throughout] O2 Sat by Pulse Oximetry [ Throughout] 02/01/21 02/01/21 02/01/21 09:41 09:46 09:51 Temperature Pulse Rate 73 73 71 Respiratory Rate Blood Pressure Blood Pressure [Right] O2 Sat by Pulse 100 100 86 Oximetry O2 Sat by Pulse Oximetry [ Bilateral Throughout] O2 Sat by Pulse Oximetry [ Throughout] 02/01/21 02/01/21 02/01/21 09:56 10:01 10:03 Temperature Pulse Rate 71 73 52 L Respiratory Rate Blood Pressure Blood Pressure [Right] O2 Sat by Pulse 100 100 91 Oximetry O2 Sat by Pulse Oximetry [ Bilateral Throughout] O2 Sat by Pulse Oximetry [ Throughout] 02/01/21 02/01/21 02/01/21 10:06 10:11 10:15 Temperature Pulse Rate 117 H 69 77 Respiratory Rate Blood Pressure Blood Pressure [Right] O2 Sat by Pulse 86 100 87 Oximetry O2 Sat by Pulse Oximetry [ Bilateral Throughout] O2 Sat by Pulse Oximetry [ Throughout] 02/01/21 02/01/21 02/01/21 10:17 10:23 10:29 Temperature Pulse Rate 76 74 93 H Respiratory Rate Blood Pressure Blood Pressure [Right] O2 Sat by Pulse 96 83 L 87 Oximetry O2 Sat by Pulse Oximetry [ Bilateral Throughout] O2 Sat by Pulse Oximetry [ Throughout] 02/01/21 02/01/21 02/01/21 10:34 10:39 10:44 Temperature Pulse Rate 75 44 L Respiratory Rate Blood Pressure 124/87 Blood Pressure [Right] O2 Sat by Pulse 98 83 L 91 Oximetry O2 Sat by Pulse Oximetry [ Bilateral Throughout] O2 Sat by Pulse Oximetry [ Throughout] 02/01/21 02/01/21 02/01/21 10:45 10:50 10:55 Temperature Pulse Rate 82 75 Respiratory Rate Blood Pressure Blood Pressure [Right] O2 Sat by Pulse 78 L 95 91 Oximetry O2 Sat by Pulse Oximetry [ Bilateral Throughout] O2 Sat by Pulse Oximetry [ Throughout] 02/01/21 02/01/21 02/01/21 10:56 11:00 11:01 Temperature Pulse Rate 75 47 L Respiratory Rate Blood Pressure Blood Pressure [Right] O2 Sat by Pulse 100 87 76 L Oximetry O2 Sat by Pulse Oximetry [ Bilateral Throughout] O2 Sat by Pulse Oximetry [ Throughout] 02/01/21 02/01/21 02/01/21 11:06 11:07 11:11 Temperature Pulse Rate 70 Respiratory Rate Blood Pressure Blood Pressure [Right] O2 Sat by Pulse 83 L 86 91 Oximetry O2 Sat by Pulse Oximetry [ Bilateral Throughout] O2 Sat by Pulse Oximetry [ Throughout] 02/01/21 02/01/21 02/01/21 11:12 11:17 11:18 Temperature Pulse Rate 76 54 L 68 Respiratory Rate Blood Pressure Blood Pressure [Right] O2 Sat by Pulse 83 L 90 52 L Oximetry O2 Sat by Pulse Oximetry [ Bilateral Throughout] O2 Sat by Pulse Oximetry [ Throughout] 02/01/21 02/01/21 02/01/21 11:22 11:23 11:28 Temperature Pulse Rate 64 64 Respiratory Rate Blood Pressure Blood Pressure [Right] O2 Sat by Pulse 88 97 100 Oximetry O2 Sat by Pulse Oximetry [ Bilateral Throughout] O2 Sat by Pulse Oximetry [ Throughout] 02/01/21 02/01/21 02/01/21 11:33 11:38 11:43 Temperature Pulse Rate 61 64 67 Respiratory Rate Blood Pressure Blood Pressure [Right] O2 Sat by Pulse 100 100 99 Oximetry O2 Sat by Pulse Oximetry [ Bilateral Throughout] O2 Sat by Pulse Oximetry [ Throughout] 02/01/21 02/01/21 02/01/21 11:48 11:51 11:53 Temperature Pulse Rate 62 59 L 58 L Respiratory Rate Blood Pressure Blood Pressure [Right] O2 Sat by Pulse 100 91 99 Oximetry O2 Sat by Pulse Oximetry [ Bilateral Throughout] O2 Sat by Pulse Oximetry [ Throughout] 02/01/21 02/01/21 02/01/21 11:55 11:58 12:03 Temperature Pulse Rate 62 61 62 Respiratory Rate Blood Pressure 130/58 Blood Pressure [Right] O2 Sat by Pulse 100 99 Oximetry O2 Sat by Pulse Oximetry [ Bilateral Throughout] O2 Sat by Pulse Oximetry [ Throughout] - Lab 01/31/21 09:00 02/01/21 05:57 Most recent lab results Calcium 6.6 mg/dL (8.4-10.2) L 02/01/21 05:57 Magnesium 6.20 mg/dL (1.7-2.3) H 01/31/21 09:00 Urine Creatinine < 4.2 mg/dL (0.1-20.0) 01/31/21 14:42 Urine Sodium 11 mmol/L 01/31/21 14:42 Urine Total Protein 776 mg/dL (5-11.8) H 01/30/21 Unknown Medications & Allergies - Medications Allergies/Adverse Reactions: Allergies No Known Allergies Allergy (Unverified 03/23/18 14:50) Home Medications: Home Medications Medication Instructions Recorded Confirmed Last Taken Type No Known Home Medications [No 01/31/21 01/31/21 Unknown History Reported Home Medications] Active Medications: Generic Name Dose Route Start Last Admin Trade Name Freq PRN Reason Stop Dose Admin Ferrous Sulfate 325 mg 01/31/21 10:00 02/01/21 09:36 Ferrous Sulfate 325 Mg Tab PO 325 mg QDAY JONATAN Administration Hydralazine HCl 10 mg 01/31/21 09:00 Hydralazine 20 Mg/1 Ml Inj IV ONCE PRN Hypertension Hydromorphone HCl 0.25 mg 01/31/21 09:00 02/01/21 06:32 Hydromorphone 1 Mg/1 Ml Inj IV 0.25 mg Q4H PRN Administration Pain , MODERATE(4-6) Hydromorphone HCl 0.5 mg 01/31/21 09:00 02/01/21 11:40 Hydromorphone 1 Mg/1 Ml Inj IV 0.5 mg Q4H PRN Administration Pain , Severe (7-10) Oxytocin/Sodium Chloride 30 units in 500 mls @ 0 mls/hr 01/30/21 18:00 Pitocin/Ns 30 Unit/500ml IV TITR JONATAN Protocol As Directed Sodium Bicarbonate 150 meq/ 1,150 mls @ 100 mls/hr 02/01/21 10:00 02/01/21 11:32 Dextrose IV 100 mls/hr DIRECT JONATAN Administration Labetalol HCl 300 mg 01/30/21 22:00 02/01/21 09:37 Labetalol 200 Mg Tab PO 300 mg BID JONATAN Administration Lidocaine/Prilocaine 1 applic 01/30/21 17:18 Emla Cream 5 Gm TP ONCE PRN for winchester catheter insertion Multi-Ingredient Ointment 1 applic 01/30/21 19:40 Lanolin/Zinc/Dimethicone (Lansinoh) 7 Gm TP PRN PRN dryness/cracking Naloxone HCl 0.2 mg 01/30/21 18:14 Naloxone 0.4 Mg/1 Ml Inj IV Q2MIN PRN Res Rate </= 8 or 02 SAT < 92% Naloxone HCl 0.1 mg 01/30/21 19:40 Naloxone 0.4 Mg/1 Ml Inj IV Q2MIN PRN Res Rate </= 8 or 02 SAT < 92% Ondansetron HCl 4 mg 01/30/21 18:14 Ondansetron 4 Mg/2 Ml Inj IV Q8H PRN Nausea And Vomiting Simethicone 80 mg 01/30/21 19:40 Simethicone 80 Mg Chew Tab PO Q6H PRN Gas pain Sodium Bicarbonate 1,300 mg 01/31/21 14:00 01/31/21 20:15 Sodium Bicarbonate 650 Mg Tab PO 1,300 mg TID JONATAN Administration Sodium Chloride 10 ml 01/30/21 20:00 Sodium Chloride 0.9% 10 Ml Flush Syringe IV 02/09/21 19:59 PRN NR Sodium Polystyrene Sulfonate 30 gm 02/01/21 12:00 Sodium Polystyrene 15 Gm/60 Ml Oral Liqd PO 02/01/21 16:01 Q4H JONATAN Witch Connie/Glycerin 1 each 01/30/21 19:40 Witch Connie/ Glycerin Pad TP PRN PRN Hemorrhoids/cleansing/soothing
[2021-02-01] MEDS ORDERED: FUROSEMIDE 40 MG/4 ML INJ IV ONE ×2 (13:58→23:45)
[2021-02-01] MEDS ORDERED: oxyCODONE /ACETAMINOPHEN 5-325MG TAB PO ONE (19:00)
[2021-02-01] MEDS: SODIUM BICARBONATE 650 MG TAB PO SCH (22:08)
[2021-02-01 23:29] LABS: Calcium 6.9 mg/dL (8.4-10.2)
[2021-02-02] MEDS: HYDROmorphone 1 MG/1 ML INJ IV PRN ×5 (07:05→20:44)
[2021-02-02] MEDS: FERROUS SULFATE 325 MG TAB PO SCH (09:22)
[2021-02-02] MEDS: SODIUM BICARBONATE 650 MG TAB PO SCH ×5 (09:23→19:27)
--- NOTE | 2021-02-02 09:59 | Progress Note ---
Assessment and Plan 1. Acute kidney injury: CASSIE in the setting of HELLP syndrome. Proteinuria noted. Renal US negative. Has winchester catheter. MARYAM, ANCA, GBM Ab and complements ordered. On IV fluids. Monitor renal function. Creatinine level is improving. Avoid nephrotoxic agents. Meds dosage based on GFR. 2. FEN: Hyperkalemia, improved, monitor. Metabolic acidosis, 2/2 CASSIE, improved, monitor. Hyponatremia, Sodium level is better, monitor. Normal serum Osm. Replete lytes as needed. Monitor lytes and volume status. 3. HFrEF: 4 chamber dilated Cardiomyopathy. Stop IV fluids. Followed by Cards. 4. Leukocytosis, POA: Improved. Monitor. 5. HEELP syndrome. 6. Anemia, POA: Trend. 7. S/p 01/30. Subjective: Patient was seen and examined at the [facility]. C/o some sob. Rad tach at the [facility]. Examination: General appearance: well-developed, appears stated age, no distress HEENT: atraumatic, no jaundice Neck: trachea midline Respiratory: ctab Heart: S1S2, regular, no murmur Abdomen: soft, bowel sounds heard, lower abd dressing, slight tenderness noted Integumentary: no rash on the inspected area Neurologic: AO, able to move extremities Ext: ext and dependent edema noted : Winchester catheter Subjective Date of service: 02/02/21 Principal diagnosis: s/p , POD #2, HELLP Syndrome, hyperkalemia, hyponatremia Objective - Vital Signs Vital signs: Vital Signs - 12hr 02/01/21 02/01/21 02/02/21 23:03 23:25 03:19 Temperature 97.5 F L 98.2 F Pulse Rate 79 79 90 Respiratory 16 18 Rate Blood Pressure 141/92 123/76 157/111 O2 Sat by Pulse 99 96 Oximetry 02/02/21 08:58 Temperature 97.5 F L Pulse Rate 98 H Respiratory 19 Rate Blood Pressure 178/117 O2 Sat by Pulse 99 Oximetry - Lab 02/02/21 13:36 02/02/21 13:36 Most recent lab results Calcium 6.9 mg/dL (8.4-10.2) L 02/01/21 22:55 Magnesium 6.20 mg/dL (1.7-2.3) H 01/31/21 09:00 Urine Creatinine < 4.2 mg/dL (0.1-20.0) 01/31/21 14:42 Urine Sodium 11 mmol/L 01/31/21 14:42 Urine Total Protein 776 mg/dL (5-11.8) H 01/30/21 Unknown Medications & Allergies - Medications Allergies/Adverse Reactions: Allergies No Known Allergies Allergy (Unverified 03/23/18 14:50) Home Medications: Home Medications Medication Instructions Recorded Confirmed Last Taken Type No Known Home Medications [No 01/31/21 01/31/21 Unknown History Reported Home Medications] Active Medications: Generic Name Dose Route Start Last Admin Trade Name Freq PRN Reason Stop Dose Admin Diphtheria/Tetanus/Acell Pertussis 0.5 ml 02/02/21 12:00 Tetanus,Diph,Pertuss(Acell) Vaccine 0.5 Ml Syringe IM 02/02/21 12:01 .ONCE ONE Ferrous Sulfate 325 mg 01/31/21 10:00 02/02/21 09:22 Ferrous Sulfate 325 Mg Tab PO 325 mg QDAY JONATAN Administration Hydralazine HCl 10 mg 01/31/21 09:00 Hydralazine 20 Mg/1 Ml Inj IV ONCE PRN Hypertension Hydromorphone HCl 0.25 mg 01/31/21 09:00 02/02/21 09:20 Hydromorphone 1 Mg/1 Ml Inj IV 0.25 mg Q4H PRN Administration Pain , MODERATE(4-6) Hydromorphone HCl 0.5 mg 01/31/21 09:00 02/02/21 07:05 Hydromorphone 1 Mg/1 Ml Inj IV 0.5 mg Q4H PRN Administration Pain , Severe (7-10) Oxytocin/Sodium Chloride 30 units in 500 mls @ 0 mls/hr 01/30/21 18:00 Pitocin/Ns 30 Unit/500ml IV TITR JONATAN Protocol As Directed Sodium Bicarbonate 150 meq/ 1,150 mls @ 60 mls/hr 02/01/21 10:00 02/01/21 11:32 Dextrose IV 100 mls/hr DIRECT JONATAN Administration Labetalol HCl 200 mg 02/01/21 22:30 02/01/21 23:26 Labetalol 200 Mg Tab PO Not Given BID JONATAN Labetalol HCl 100 mg 02/01/21 22:00 02/02/21 09:23 Labetalol 100 Mg Tab PO 100 mg BID JONATAN Administration Lidocaine/Prilocaine 1 applic 01/30/21 17:18 Emla Cream 5 Gm TP ONCE PRN for winchester catheter insertion Multi-Ingredient Ointment 1 applic 01/30/21 19:40 Lanolin/Zinc/Dimethicone (Lansinoh) 7 Gm TP PRN PRN dryness/cracking Naloxone HCl 0.2 mg 01/30/21 18:14 Naloxone 0.4 Mg/1 Ml Inj IV Q2MIN PRN Res Rate </= 8 or 02 SAT < 92% Naloxone HCl 0.1 mg 01/30/21 19:40 Naloxone 0.4 Mg/1 Ml Inj IV Q2MIN PRN Res Rate </= 8 or 02 SAT < 92% Ondansetron HCl 4 mg 01/30/21 18:14 Ondansetron 4 Mg/2 Ml Inj IV Q8H PRN Nausea And Vomiting Simethicone 80 mg 01/30/21 19:40 Simethicone 80 Mg Chew Tab PO Q6H PRN Gas pain Sodium Bicarbonate 1,300 mg 01/31/21 14:00 02/02/21 09:23 Sodium Bicarbonate 650 Mg Tab PO 1,300 mg TID JONATAN Administration Sodium Chloride 10 ml 01/30/21 20:00 02/02/21 09:23 Sodium Chloride 0.9% 10 Ml Flush Syringe IV 02/09/21 19:59 10 ml PRN NR Administration Witch Connie/Glycerin 1 each 01/30/21 19:40 Witch Connie/ Glycerin Pad TP PRN PRN Hemorrhoids/cleansing/soothing
--- NOTE | 2021-02-02 10:35 | Progress Note ---
Assessment and Plan Assessment and plan: Patient is a 35 year old female with past medical hx of Chronic HTN was taken off lisinpril per patient presented to the hospital for concern of HELLP syndrome and underwent C section 01/30. She unfortunately had poor care and also has hx of tobacco smoking and methamphetamin use through out her .During visit was noted to have Hyponatremia and Leukocoytosis with worsening renal function We are consulted to assist with management She denies any chest pain, nausea and vomiting. 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 Nephrology input noted. DVT/GI prophy 02/01/21 Patient is seen and examined. Patient complained of shortness of breath and mild swelling of the body. Patient WBC 16.8, hemoglobin 9.7 hematocrit 31.0. Patient potassium is 5.8, BUN 49 and creatinine 2.0. Patient is on bicarb drip. Kayexalate 30 g p.o. every 4 hours x2 dose. Nephrology follow-up. Cardiology consultation. Echocardiogram. VQ scan rule out PE. Transfer the patient to the telemetry. Recheck CBC BMP in the morning. Continue current management 02/02: This patient was transferred to the acute medical side due to shortness of breath has been seen by cardiology recommended an echocardiogram which is pending VQ scan is also pending. For now we will continue current management. Still mildly hyponatremic. Nephrology following and corrected also hyp erkalemia. May need further Kayexalate but will defer to interactive digital media specialist. Counseling amphetamines provided to the patient for 15 minutes. We will add a nebulizer treatment to assist with current management of the patient chest x-ray does not show any volume overload at this time. History Interval history: Patient seen and examined this morning while she was resting comfortably she says she still has some difficulty breathing and chest tightness. Hospitalist Physical - Physical exam Narrative exam: VITAL SIGNS: Reviewed. GENERAL: The patient appears normally developed, Vital signs as documented. HEAD: No signs of head trauma. EYES: Pupils are equal. Extraocular motions intact. EARS: Hearing grossly intact. MOUTH: Oropharynx is normal. NECK: No adenopathy, no JVD. CHEST: Chest with clear breath sounds bilaterally. No wheezes, rales, or rhonchi. CARDIAC: Regular rate and rhythm. S1 and S2, without murmurs, gallops, or rubs. VASCULAR: No Edema. Peripheral pulses normal and equal in all extremities. ABDOMEN: Surgical lesion, Soft, non tender and non distended. No rebound or guarding, and no masses palpated. Bowel Sounds normal. MUSCULOSKELETAL: Good range of motion of all major joints. Extremities without clubbing, cyanosis or edema. NEUROLOGIC EXAM: Alert and oriented x 3, a bit anxious no focal sensory or strength deficits. Speech normal. Follows commands. PSYCHIATRIC: Mood normal. SKIN: detail exam as documented in skin assessment - Constitutional Vitals: Temp Pulse Resp BP Pulse Ox 97.5 F L 98 H 19 178/117 99 02/02/21 08:58 02/02/21 08:58 02/02/21 08:58 02/02/21 08:58 02/02/21 08:58 General appearance: Present: no acute distress Results - Labs CBC & Chem 7: 01/31/21 09:00 02/01/21 22:55 Labs: Laboratory Last Values WBC 16.8 K/mm3 (4.5-11.0) H 01/31/21 09:00 RBC 3.85 M/mm3 (3.65-5.03) 01/31/21 09:00 Hgb 9.7 gm/dl (10.1-14.3) L 01/31/21 09:00 Hct 31.0 % (30.3-42.9) 01/31/21 09:00 MCV 80 fl (79-97) 01/31/21 09:00 MCH 25 pg (28-32) L 01/31/21 09:00 MCHC 31 % (30-34) 01/31/21 09:00 RDW 18.3 % (13.2-15.2) H 01/31/21 09:00 Plt Count 265 K/mm3 (140-440) 01/31/21 09:00 Add Manual Diff Complete 01/31/21 03:30 Total Counted 100 01/31/21 03:30 Seg Neuts % (Manual) 90.0 % (40.0-70.0) H 01/30/21 17:20 Lymphocytes % (Manual) 8.0 % (13.4-35.0) L 01/31/21 03:30 Monocytes % (Manual) 3.0 % (0.0-7.3) 01/30/21 17:20 Nucleated RBC % 3.0 % (0.0-0.9) H 01/31/21 03:30 Seg Neutrophils # Man 16.3 K/mm3 (1.8-7.7) H 01/31/21 03:30 Band Neutrophils # 0.0 K/mm3 01/31/21 03:30 Lymphocytes # (Manual) 1.4 K/mm3 (1.2-5.4) 01/31/21 03:30 Abs React Lymphs (Man) 0.0 K/mm3 01/31/21 03:30 Monocytes # (Manual) 0.0 K/mm3 (0.0-0.8) 01/31/21 03:30 Eosinophils # (Manual) 0.0 K/mm3 (0.0-0.4) 01/31/21 03:30 Basophils # (Manual) 0.0 K/mm3 (0.0-0.1) 01/31/21 03:30 Metamyelocytes # 0.0 K/mm3 01/31/21 03:30 Myelocytes # 0.0 K/mm3 01/31/21 03:30 Promyelocytes # 0.0 K/mm3 01/31/21 03:30 Blast Cells # 0.0 K/mm3 01/31/21 03:30 WBC Morphology Not Reportable 01/31/21 03:30 Hypersegmented Neuts Not Reportable 01/31/21 03:30 Hyposegmented Neuts Not Reportable 01/31/21 03:30 Hypogranular Neuts Not Reportable 01/31/21 03:30 Smudge Cells Not Reportable 01/31/21 03:30 Toxic Granulation Not Reportable 01/31/21 03:30 Toxic Vacuolation Not Reportable 01/31/21 03:30 Dohle Bodies Not Reportable 01/31/21 03:30 Pelger-Huet Anomaly Not Reportable 01/31/21 03:30 Kaley Rods Not Reportable 01/31/21 03:30 Platelet Estimate Consistent w auto 01/31/21 03:30 Clumped Platelets Not Reportable 01/31/21 03:30 Plt Clumps, EDTA Not Reportable 01/31/21 03:30 Large Platelets Not Reportable 01/31/21 03:30 Giant Platelets Not Reportable 01/31/21 03:30 Platelet Satelliting Not Reportable 01/31/21 03:30 Plt Morphology Comment Not Reportable 01/31/21 03:30 RBC Morphology Not Reportable 01/31/21 03:30 Dimorphic RBCs Not Reportable 01/31/21 03:30 Polychromasia Not Reportable 01/31/21 03:30 Hypochromasia Not Reportable 01/31/21 03:30 Poikilocytosis Not Reportable 01/31/21 03:30 Anisocytosis 1+ 01/31/21 03:30 Microcytosis Not Reportable 01/31/21 03:30 Macrocytosis Not Reportable 01/31/21 03:30 Spherocytes Not Reportable 01/31/21 03:30 Pappenheimer Bodies Not Reportable 01/31/21 03:30 Sickle Cells Not Reportable 01/31/21 03:30 Target Cells Not Reportable 01/31/21 03:30 Tear Drop Cells Not Reportable 01/31/21 03:30 Ovalocytes Not Reportable 01/31/21 03:30 Helmet Cells Not Reportable 01/31/21 03:30 Bellamy-Arnett Bodies Not Reportable 01/31/21 03:30 [place] Rings Not Reportable 01/31/21 03:30 Edwige Cells Not Reportable 01/31/21 03:30 Bite Cells Not Reportable 01/31/21 03:30 Crenated Cell Not Reportable 01/31/21 03:30 Elliptocytes Few 01/31/21 03:30 Acanthocytes (Spur) Not Reportable 01/31/21 03:30 Rouleaux Not Reportable 01/31/21 03:30 Hemoglobin C Crystals Not Reportable 01/31/21 03:30 Schistocytes Not Reportable 01/31/21 03:30 Malaria parasites Not Reportable 01/31/21 03:30 Zachary Bodies Not Reportable 01/31/21 03:30 Hem Pathologist Commnt No 01/31/21 03:30 PT 15.7 Sec. (12.2-14.9) H 01/31/21 09:00 INR 1.13 (0.87-1.13) 01/31/21 09:00 APTT 34.2 Sec. (24.2-36.6) 01/31/21 09:00 Fibrinogen 283 mg/dl (211-480) 01/30/21 23:37 Sodium 128 mmol/L (137-145) L 02/01/21 22:55 Potassium 5.2 mmol/L (3.6-5.0) H 02/01/21 22:55 Chloride 98.3 mmol/L (98-107) 02/01/21 22:55 Carbon Dioxide 17 mmol/L (22-30) L 02/01/21 22:55 Anion Gap 18 mmol/L 02/01/21 22:55 BUN 46 mg/dL (7-17) H 02/01/21 22:55 Creatinine 1.6 mg/dL (0.6-1.2) H 02/01/21 22:55 Estimated GFR 37 ml/min 02/01/21 22:55 BUN/Creatinine Ratio 29 % 02/01/21 22:55 Glucose 118 mg/dL (65-100) H 02/01/21 22:55 Osmolality 284 Mosm/kg 01/31/21 14:05 Uric Acid 12.1 mg/dL (3.5-7.6) H 01/30/21 17:20 Calcium 6.9 mg/dL (8.4-10.2) L 02/01/21 22:55 Magnesium 6.20 mg/dL (1.7-2.3) H 01/31/21 09:00 Total Bilirubin 0.20 mg/dL (0.1-1.2) 02/01/21 05:57 Direct Bilirubin 0.2 mg/dL (0-0.2) 01/31/21 14:05 Indirect Bilirubin 0.1 mg/dL 01/31/21 14:05 AST 112 units/L (5-40) H 02/01/21 05:57 ALT 98 units/L (7-56) H 02/01/21 05:57 Alkaline Phosphatase 113 units/L (35-129) 02/01/21 05:57 Lactate Dehydrogenase 569 units/L (91-180) H 01/31/21 14:05 Total Protein 4.9 g/dL (6.3-8.2) L 02/01/21 05:57 Albumin 2.1 g/dL (3.9-5) L 02/01/21 05:57 Albumin/Globulin Ratio 0.8 % 02/01/21 05:57 HCG, Quant 08557 mIU/mL (0-4) H 01/30/21 17:20 Urine Color Yellow (Yellow) 01/30/21 Unknown Urine Turbidity Slightly-cloudy (Clear) 01/30/21 Unknown Urine pH 5.0 (5.0-7.0) 01/30/21 Unknown Ur Specific Winchester 1.014 (1.003-1.030) 01/30/21 Unknown Urine Protein >500 mg/dL (Negative) 01/30/21 Unknown Urine Glucose (UA) Neg mg/dL (Negative) 01/30/21 Unknown Urine Ketones Neg mg/dL (Negative) 01/30/21 Unknown Urine Blood Sm (Negative) 01/30/21 Unknown Urine Nitrite Neg (Negative) 01/30/21 Unknown Urine Bilirubin Neg (Negative) 01/30/21 Unknown Urine Urobilinogen 4.0 mg/dL (<2.0) 01/30/21 Unknown Ur Leukocyte Esterase Neg (Negative) 01/30/21 Unknown Urine WBC (Auto) 6.0 /HPF (0.0-6.0) 01/30/21 Unknown Urine RBC (Auto) 5.0 /HPF (0.0-6.0) 01/30/21 Unknown U Epithel Cells (Auto) 4.0 /HPF (0-13.0) 01/30/21 Unknown Urine Mucus Few /HPF 01/30/21 Unknown Urine Yeast (Budding) Few /HPF 01/30/21 Unknown Urine Eosinophils None seen (None Seen) 01/31/21 14:42 Urine Osmolality 529 Mosm/kg 01/31/21 14:42 Urine Creatinine < 4.2 mg/dL (0.1-20.0) 01/31/21 14:42 Urine Sodium 11 mmol/L 01/31/21 14:42 Urine Total Protein 776 mg/dL (5-11.8) H 01/30/21 Unknown Urine Opiates Screen Presumptive negative 01/30/21 Unknown Urine Methadone Screen Presumptive negative 01/30/21 Unknown Ur Barbiturates Screen Presumptive negative 01/30/21 Unknown Ur Phencyclidine Scrn Presumptive negative 01/30/21 Unknown Ur Amphetamines Screen Presumptive positive 01/30/21 Unknown U Benzodiazepines Scrn Presumptive negative 01/30/21 Unknown Urine Cocaine Screen Presumptive negative 01/30/21 Unknown U Marijuana (THC) Screen Presumptive negative 01/30/21 Unknown Drugs of Abuse Note Disclamer 01/30/21 Unknown Syphilis IgG Antibody Nonreactive (NonReactive) 01/30/21 17:20 Coronavirus (PCR) Negative (Negative) 01/31/21 Unknown Hep Bs Antigen Nonreactive (Negative) 01/30/21 16:17 Hepatitis C Antibody Non-reactive (NonReactive) 01/30/21 17:20 HIV 1&2 Antibody Rapid Non react (Non React) 01/30/21 17:20 HIV P24 Antigen Non react (Non React) 01/30/21 17:20 Rubella IgG Antibody Immune (Immune) 01/30/21 17:20 Blood Type B POSITIVE 01/30/21 17:20 Antibody Screen Negative 01/30/21 17:20 Microbiology: Microbiology 01/31/21 16:16 Urine,Clean Catch Urine Culture - Final NO GROWTH AFTER 48 HOURS Active Medications - Current Medications Current Medications: Generic Name Dose Route Start Last Admin Trade Name Freq PRN Reason Stop Dose Admin Diphtheria/Tetanus/Acell Pertussis 0.5 ml 02/02/21 12:00 Tetanus,Diph,Pertuss(Acell) Vaccine 0.5 Ml Syringe IM 02/02/21 12:01 .ONCE ONE Ferrous Sulfate 325 mg 01/31/21 10:00 02/02/21 09:22 Ferrous Sulfate 325 Mg Tab PO 325 mg QDAY JONATAN Administration Hydralazine HCl 10 mg 01/31/21 09:00 Hydralazine 20 Mg/1 Ml Inj IV ONCE PRN Hypertension Hydromorphone HCl 0.25 mg 01/31/21 09:00 02/02/21 09:20 Hydromorphone 1 Mg/1 Ml Inj IV 0.25 mg Q4H PRN Administration Pain , MODERATE(4-6) Hydromorphone HCl 0.5 mg 01/31/21 09:00 02/02/21 07:05 Hydromorphone 1 Mg/1 Ml Inj IV 0.5 mg Q4H PRN Administration Pain , Severe (7-10) Oxytocin/Sodium Chloride 30 units in 500 mls @ 0 mls/hr 01/30/21 18:00 Pitocin/Ns 30 Unit/500ml IV TITR JONATAN Protocol As Directed Sodium Bicarbonate 150 meq/ 1,150 mls @ 60 mls/hr 02/01/21 10:00 02/01/21 11:32 Dextrose IV 100 mls/hr DIRECT JONATAN Administration Labetalol HCl 200 mg 02/01/21 22:30 02/01/21 23:26 Labetalol 200 Mg Tab PO Not Given BID JONATAN Labetalol HCl 100 mg 02/01/21 22:00 02/02/21 09:23 Labetalol 100 Mg Tab PO 100 mg BID JONATAN Administration Lidocaine/Prilocaine 1 applic 01/30/21 17:18 Emla Cream 5 Gm TP ONCE PRN for winchester catheter insertion Multi-Ingredient Ointment 1 applic 01/30/21 19:40 Lanolin/Zinc/Dimethicone (Lansinoh) 7 Gm TP PRN PRN dryness/cracking Naloxone HCl 0.2 mg 01/30/21 18:14 Naloxone 0.4 Mg/1 Ml Inj IV Q2MIN PRN Res Rate </= 8 or 02 SAT < 92% Naloxone HCl 0.1 mg 01/30/21 19:40 Naloxone 0.4 Mg/1 Ml Inj IV Q2MIN PRN Res Rate </= 8 or 02 SAT < 92% Ondansetron HCl 4 mg 01/30/21 18:14 Ondansetron 4 Mg/2 Ml Inj IV Q8H PRN Nausea And Vomiting Simethicone 80 mg 01/30/21 19:40 Simethicone 80 Mg Chew Tab PO Q6H PRN Gas pain Sodium Bicarbonate 1,300 mg 01/31/21 14:00 02/02/21 09:23 Sodium Bicarbonate 650 Mg Tab PO 1,300 mg TID JONATAN Administration Sodium Chloride 10 ml 01/30/21 20:00 02/02/21 09:23 Sodium Chloride 0.9% 10 Ml Flush Syringe IV 02/09/21 19:59 10 ml PRN NR Administration Witch Connie/Glycerin 1 each 01/30/21 19:40 Witch Connie/ Glycerin Pad TP PRN PRN Hemorrhoids/cleansing/soothing
--- NOTE | 2021-02-02 11:29 | Nuclear Medicine Report ---
NUCLEAR MEDICINE PERFUSION LUNG SCAN INDICATION / CLINICAL INFORMATION: sob. TECHNIQUE: 5.1 mCi of Tc-99m MAA were given by IV. COMPARISON: Chest radiograph dated 02/01/2021. FINDINGS: PERFUSION: There is a moderate-sized possibly segmental defect in the left midlung. ADDITIONAL FINDINGS: None. IMPRESSION: 1. Intermediate probability for pulmonary embolism. Signer Name: Cornelius Theodore MD Signed: 02/02/2021 11:25 AM Workstation Name: [id number]
[2021-02-02] MEDS ORDERED: TETANUS,DIPH,PERTUSS(ACELL) VACCINE 0.5 ML SYRINGE IM ONE (12:00)
[2021-02-02 14:06] LABS: Hematocrit 30.1 % (30.3-42.9); Hemoglobin 9.7 gm/dl (10.1-14.3); Mean Corpuscular HGB Conc 32 % (30-34); Mean Corpuscular Volume 81 fl (79-97); Platelet Count 246 K/mm3 (140-440); Red Blood Count 3.73 M/mm3 (3.65-5.03); Red Cell Distribution Width 18.1 % (13.2-15.2)
[2021-02-02 14:28] LABS: Chol/HDL Ratio 7.11 %
[2021-02-02 14:29] LABS: Albumin 2.4 g/dL (3.9-5); Calcium 7.5 mg/dL (8.4-10.2)
[2021-02-02 15:58] LABS: Anisocytosis 1+; Band Neutrophils # (Manual) 0.2 K/mm3; Large Platelets Few; Myelocytes # (Manual) 0.1 K/mm3; Platelet Estimate Consistent w Auto; Total Cells Counted 100
[2021-02-02] MEDS: SODIUM BICARBONATE 150 MEQ in DEXTROSE 5% IN WATER 1,000 ML IV SCH (16:00)
--- NOTE | 2021-02-02 18:26 | Progress Note ---
Assessment and Plan - Patient Problems (1) Peripartum cardiomyopathy Current Visit: Yes Status: Acute Plan to address problem: Patient has a severe cardiomyopathy following her current . We will start guideline directed medical therapy as indicated. Patient may not be able to breast-feed on her heart failure medications. She also will be advised to refrain from any future pregnancies. Subjective Date of service: 02/02/21 Principal diagnosis: s/p , POD #2, HELLP Syndrome, hyperkalemia, hyponatremia Interval history: Patient echocardiogram shows a severe dilated cardiomyopathy with left ventricular ejection fraction less than 20 to 25%. Objective Vital Signs Temp Pulse Resp BP Pulse Ox Pulse Ox Pulse Ox 02/02/21 16:05 98.9 F 90 19 146/86 98 02/02/21 12:54 97.8 F 89 19 141/84 97 02/02/21 11:49 100 02/02/21 09:00 100 99 02/02/21 08:58 97.5 F L 98 H 19 178/117 99 02/02/21 03:19 98.2 F 90 18 157/111 96 02/01/21 23:25 79 123/76 02/01/21 23:03 97.5 F L 79 16 141/92 99 02/01/21 19:01 97.0 F L 79 18 123/76 100 - Physical Examination General: No Apparent Distress HEENT: Positive: PERRL Neck: Positive: neck supple Cardiac: Positive: Reg Rate and Rhythm Lungs: Positive: Decreased Breath Sounds Neuro: Positive: Grossly Intact Abdomen: Positive: Soft Skin: Positive: Clear Extremities: Absent: edema - Labs and Meds Cardiac Enzymes 02/02/21 Range/Units 13:36 AST 70 H (5-40) units/L Lipids 02/02/21 Range/Units 13:36 Triglycerides 347 H (2-149) mg/dL Cholesterol 121 (50-199) mg/dL HDL Cholesterol 17 L (40-59) mg/dL Cholesterol/HDL Ratio 7.11 % CBC 02/02/21 Range/Units 13:36 WBC 10.6 (4.5-11.0) K/mm3 RBC 3.73 (3.65-5.03) M/mm3 Hgb 9.7 L (10.1-14.3) gm/dl Hct 30.1 L (30.3-42.9) % Plt Count 246 (140-440) K/mm3 Comprehensive Metabolic Panel 02/01/21 02/02/21 Range/Units 22:55 13:36 Sodium 128 L 134 L (137-145) mmol/L Potassium 5.2 H 4.5 (3.6-5.0) mmol/L Chloride 98.3 97.6 L (98-107) mmol/L Carbon Dioxide 17 L 26 D (22-30) mmol/L BUN 46 H 37 H (7-17) mg/dL Creatinine 1.6 H 1.2 (0.6-1.2) mg/dL Glucose 118 H 101 H (65-100) mg/dL Calcium 6.9 L 7.5 L (8.4-10.2) mg/dL AST 70 H (5-40) units/L ALT 72 H (7-56) units/L Alkaline Phosphatase 119 (35-129) units/L Total Protein 5.3 L (6.3-8.2) g/dL Albumin 2.4 L (3.9-5) g/dL
[2021-02-02] MEDS: ASPIRIN EC 81 MG TAB PO SCH (19:27)
--- NOTE | 2021-02-02 20:06 | Progress Note ---
Assessment and Plan - Patient Problems (1) delivery, delivered, current hospitalization Current Visit: Yes Status: Acute Plan to address problem: Postoperatively patient is doing well. Incision intact with no evidence of infection. (2) Hemolysis, elevated liver enzymes, and low platelet (HELLP) syndrome during , delivered Current Visit: Yes Status: Acute Plan to address problem: Patient's labs are improved and it greatly. Platelet count is normal her liver function tests are approaching normal. Hematocrit hemoglobin stable (3) Hyperkalemia Current Visit: Yes Status: Acute Plan to address problem: Potassium is normal at present appreciate help by hospitalist and organization development consultant (4) Hyponatremia Current Visit: Yes Status: Acute Plan to address problem: Improvement in protein normal levels. Appreciate help by hospitalist and organization development consultant (5) Peripartum cardiomyopathy Current Visit: Yes Status: Acute Plan to address problem: Dr. Quigley's note reviewed. Discussed the diagnosis with the patient also. Again emphasized the need to cease with drug use and emphasized the need to avoid future pregnancies. Appreciate cardiology's help with her management cardiomyopathy. Medications to be managed by cardiology. (6) Suspected pulmonary embolism Current Visit: Yes Status: Acute Plan to address problem: VQ scan results reviewed, will discuss with hospitalist starting heparin therapy Subjective Date of service: 02/02/21 Principal diagnosis: s/p , POD #3, HELLP Syndrome, hyperkalemia, hyponatremia Interval history: Patient states she is feeling better complain of some pain from her incision and is reclining in her bed Objective - Constitutional Vitals: Vital Signs - 12hr 02/02/21 02/02/21 02/02/21 08:58 09:00 11:49 Temperature 97.5 F L Pulse Rate 98 H Respiratory 19 Rate Blood Pressure 178/117 O2 Sat by Pulse 99 100 Oximetry O2 Sat by Pulse 100 Oximetry [ Bilateral Throughout] O2 Sat by Pulse 99 Oximetry [ Throughout] 02/02/21 02/02/21 12:54 16:05 Temperature 97.8 F 98.9 F Pulse Rate 89 90 Respiratory 19 19 Rate Blood Pressure 141/84 146/86 O2 Sat by Pulse 97 98 Oximetry O2 Sat by Pulse Oximetry [ Bilateral Throughout] O2 Sat by Pulse Oximetry [ Throughout] General appearance: Present: no acute distress - Neck Neck: supple - Respiratory Respiratory effort: normal - Breasts Breasts: deferred - Cardiovascular Rhythm: regular Extremity abnormal: edema (2) - Gastrointestinal General gastrointestinal: Present: soft, tender (Appropriate postop), other (Incision healing well Steri-Strips in place no evidence of drainage) Rectal Exam: deferred - Genitourinary Female genitourinary: deferred - Integumentary Integumentary: clear, warm, dry - Psychiatric Psychiatric: appropriate mood/affect - Labs CBC & Chem 7: 02/02/21 13:36 02/02/21 13:36 Labs: Abnormal lab results 02/01/21 02/02/21 02/02/21 Range/Units 22:55 13:36 13:36 Hgb 9.7 L (10.1-14.3) gm/dl Hct 30.1 L (30.3-42.9) % MCH 26 L (28-32) pg RDW 18.1 H (13.2-15.2) % Seg Neuts % (Manual) 82.0 H (40.0-70.0) % Lymphocytes % (Manual) 7.0 L (13.4-35.0) % Nucleated RBC % 2.0 H (0.0-0.9) % Seg Neutrophils # Man 8.7 H (1.8-7.7) K/mm3 Lymphocytes # (Manual) 0.7 L (1.2-5.4) K/mm3 Sodium 128 L 134 L (137-145) mmol/L Potassium 5.2 H (3.6-5.0) mmol/L Chloride 97.6 L (98-107) mmol/L Carbon Dioxide 17 L (22-30) mmol/L BUN 46 H 37 H (7-17) mg/dL Creatinine 1.6 H (0.6-1.2) mg/dL Glucose 118 H 101 H (65-100) mg/dL Calcium 6.9 L 7.5 L (8.4-10.2) mg/dL AST 70 H (5-40) units/L ALT 72 H (7-56) units/L Total Protein 5.3 L (6.3-8.2) g/dL Albumin 2.4 L (3.9-5) g/dL Triglycerides (2-149) mg/dL LDL Cholesterol Direct (50-130) mg/dL HDL Cholesterol (40-59) mg/dL 02/02/21 Range/Units 13:36 Hgb (10.1-14.3) gm/dl Hct (30.3-42.9) % MCH (28-32) pg RDW (13.2-15.2) % Seg Neuts % (Manual) (40.0-70.0) % Lymphocytes % (Manual) (13.4-35.0) % Nucleated RBC % (0.0-0.9) % Seg Neutrophils # Man (1.8-7.7) K/mm3 Lymphocytes # (Manual) (1.2-5.4) K/mm3 Sodium (137-145) mmol/L Potassium (3.6-5.0) mmol/L Chloride (98-107) mmol/L Carbon Dioxide (22-30) mmol/L BUN (7-17) mg/dL Creatinine (0.6-1.2) mg/dL Glucose (65-100) mg/dL Calcium (8.4-10.2) mg/dL AST (5-40) units/L ALT (7-56) units/L Total Protein (6.3-8.2) g/dL Albumin (3.9-5) g/dL Triglycerides 347 H (2-149) mg/dL LDL Cholesterol Direct 46 L (50-130) mg/dL HDL Cholesterol 17 L (40-59) mg/dL Medications & Allergies - Medications Allergies/Adverse Reactions: Allergies No Known Allergies Allergy (Unverified 03/23/18 14:50) Home Medications: Home Medications Medication Instructions Recorded Confirmed Last Taken Type RX: No Known Home Medications [No 01/31/21 01/31/21 Unknown History Reported Home Medications] Active Medications: Generic Name Dose Route Start Last Admin Trade Name Freq PRN Reason Stop Dose Admin Aspirin 81 mg 02/02/21 19:00 02/02/21 19:27 Aspirin Ec 81 Mg Tab PO 81 mg QDAY JONATAN Administration Carvedilol 6.25 mg 02/02/21 22:00 Carvedilol 6.25 Mg Tab PO BID JONATAN Ferrous Sulfate 325 mg 01/31/21 10:00 02/02/21 09:22 Ferrous Sulfate 325 Mg Tab PO 325 mg QDAY JONATAN Administration Furosemide 40 mg 02/02/21 22:00 Furosemide 40 Mg Tab PO QDAY JONATAN Hydralazine HCl 10 mg 01/31/21 09:00 Hydralazine 20 Mg/1 Ml Inj IV ONCE PRN Hypertension Hydromorphone HCl 0.25 mg 01/31/21 09:00 02/02/21 16:32 Hydromorphone 1 Mg/1 Ml Inj IV 0.25 mg Q4H PRN Administration Pain , MODERATE(4-6) Hydromorphone HCl 0.5 mg 01/31/21 09:00 02/02/21 13:11 Hydromorphone 1 Mg/1 Ml Inj IV 0.5 mg Q4H PRN Administration Pain , Severe (7-10) Oxytocin/Sodium Chloride 30 units in 500 mls @ 0 mls/hr 01/30/21 18:00 Pitocin/Ns 30 Unit/500ml IV TITR JONATAN Protocol As Directed Lidocaine/Prilocaine 1 applic 01/30/21 17:18 Emla Cream 5 Gm TP ONCE PRN for [place] catheter insertion Multi-Ingredient Ointment 1 applic 01/30/21 19:40 Lanolin/Zinc/Dimethicone (Lansinoh) 7 Gm TP PRN PRN dryness/cracking Naloxone HCl 0.2 mg 01/30/21 18:14 Naloxone 0.4 Mg/1 Ml Inj IV Q2MIN PRN Res Rate </= 8 or 02 SAT < 92% Naloxone HCl 0.1 mg 01/30/21 19:40 Naloxone 0.4 Mg/1 Ml Inj IV Q2MIN PRN Res Rate </= 8 or 02 SAT < 92% Ondansetron HCl 4 mg 01/30/21 18:14 Ondansetron 4 Mg/2 Ml Inj IV Q8H PRN Nausea And Vomiting Simethicone 80 mg 01/30/21 19:40 Simethicone 80 Mg Chew Tab PO Q6H PRN Gas pain Sodium Bicarbonate 1,300 mg 01/31/21 14:00 02/02/21 19:27 Sodium Bicarbonate 650 Mg Tab PO 1,300 mg TID JONATAN Administration Sodium Chloride 10 ml 01/30/21 20:00 02/02/21 09:23 Sodium Chloride 0.9% 10 Ml Flush Syringe IV 02/09/21 19:59 10 ml PRN NR Administration Spironolactone 25 mg 02/02/21 22:00 Spironolactone 25 Mg Tab PO QDAY JONATAN Valsartan 80 mg 02/02/21 22:00 Valsartan 40 Mg Tab PO BID JONATAN Witch Connie/Glycerin 1 each 01/30/21 19:40 Witch Connie/ Glycerin Pad TP PRN PRN Hemorrhoids/cleansing/soothing
[2021-02-02] MEDS: SPIRONOLACTONE 25 MG TAB PO SCH (21:35)
[2021-02-02] MEDS: carvediloL 6.25 MG TAB PO SCH (21:35)
[2021-02-02] MEDS: FUROSEMIDE 40 MG TAB PO SCH (21:35)
[2021-02-02] MEDS: VALSARTAN 40 MG TAB PO SCH (21:36)
[2021-02-03] MEDS: HYDROmorphone 1 MG/1 ML INJ IV PRN ×5 (01:34→23:41)
[2021-02-03] MEDS: hydrALAZINE 20 MG/1 ML INJ IV PRN ×2 (05:06→17:21)
[2021-02-03 07:44] LABS: BUN/Creatinine Ratio 31; Blood Urea Nitrogen 25 mg/dL (7-17); Hemolysis Index 1
--- NOTE | 2021-02-03 08:41 | Progress Note ---
<VIRIDIANA MCFARLAND - Last Filed: 02/03/21 09:29> Assessment and Plan - Patient Problems (1) Hemolysis, elevated liver enzymes, and low platelet (HELLP) syndrome during , delivered Current Visit: Yes Status: Acute (2) delivery delivered Onset Date: ~03/23/18 Current Visit: No Status: Acute (3) Hyperkalemia Current Visit: Yes Status: Acute (4) Hyponatremia Current Visit: Yes Status: Acute (5) Chronic hypertension Current Visit: No Status: Acute Subjective - Subjective Date of service: 02/03/21 Principal diagnosis: s/p , POD #4, HELLP Syndrome, cardiomyopathy, CASSIE [place]: doing well, in NICU Objective - Vital Signs Latest vital signs: Vital Signs Temp Pulse Resp BP BP Pulse Ox Pulse Ox 02/03/21 07:47 98.7 F 99 H 18 156/99 100 02/03/21 06:04 101 H 142/85 100 02/03/21 05:06 82 167/106 02/03/21 04:35 98.9 F 82 18 167/106 02/03/21 00:26 96 H 145/89 98 02/03/21 00:25 98.6 F 02/02/21 22:27 97 02/02/21 21:36 91 H 164/100 02/02/21 21:35 91 H 164/100 02/02/21 21:34 164/100 02/02/21 21:00 98 02/02/21 16:05 98.9 F 90 19 146/86 98 02/02/21 12:54 97.8 F 89 19 141/84 97 02/02/21 11:49 100 02/02/21 09:00 100 02/02/21 08:58 97.5 F L 98 H 19 178/117 99 Pulse Ox 02/03/21 07:47 02/03/21 06:04 02/03/21 05:06 02/03/21 04:35 02/03/21 00:26 02/03/21 00:25 02/02/21 22:27 02/02/21 21:36 02/02/21 21:35 02/02/21 21:34 02/02/21 21:00 98 02/02/21 16:05 02/02/21 12:54 02/02/21 11:49 02/02/21 09:00 99 02/02/21 08:58 Intake and Output 02/02/21 02/03/21 02/03/21 22:59 06:59 14:59 Output Total 1200 Balance -1200 Output: Urine 1200 Indwelling Catheter 1200 Other: Total, Output Amount 1200 - Exam Narrative Exam: Pt with c/o shortness of breath. On 3L NC of O2. Denies PEREZ, blurred vision, chest pain, upper abdominal pain. [place] catheter in place draining clear yellow urine. Breasts: Present: deferred Cardiovascular: Present: Normal S1, Normal S2 Lungs: Present: Clear to auscultation Abdomen: Present: normal appearance, soft, normal bowel sounds Vulva: both: normal (Swelling noted) Uterus: Present: normal, firm Extremities: Present: normal Deep Tendon Reflex Grade: Normal +2 Incision: Present: normal, dry, intact, other (No drainage or s/sx of infection noted. ) - Labs Labs: Abnormal lab results 02/02/21 02/02/21 02/02/21 Range/Units 13:36 13:36 13:36 Hgb 9.7 L (10.1-14.3) gm/dl Hct 30.1 L (30.3-42.9) % MCH 26 L (28-32) pg RDW 18.1 H (13.2-15.2) % Seg Neuts % (Manual) 82.0 H (40.0-70.0) % Lymphocytes % (Manual) 7.0 L (13.4-35.0) % Nucleated RBC % 2.0 H (0.0-0.9) % Seg Neutrophils # Man 8.7 H (1.8-7.7) K/mm3 Lymphocytes # (Manual) 0.7 L (1.2-5.4) K/mm3 Sodium 134 L (137-145) mmol/L Chloride 97.6 L (98-107) mmol/L BUN 37 H (7-17) mg/dL Glucose 101 H (65-100) mg/dL Calcium 7.5 L (8.4-10.2) mg/dL AST 70 H (5-40) units/L ALT 72 H (7-56) units/L Total Protein 5.3 L (6.3-8.2) g/dL Albumin 2.4 L (3.9-5) g/dL Triglycerides 347 H (2-149) mg/dL LDL Cholesterol Direct 46 L (50-130) mg/dL HDL Cholesterol 17 L (40-59) mg/dL 02/03/21 Range/Units 07:09 Hgb (10.1-14.3) gm/dl Hct (30.3-42.9) % MCH (28-32) pg RDW (13.2-15.2) % Seg Neuts % (Manual) (40.0-70.0) % Lymphocytes % (Manual) (13.4-35.0) % Nucleated RBC % (0.0-0.9) % Seg Neutrophils # Man (1.8-7.7) K/mm3 Lymphocytes # (Manual) (1.2-5.4) K/mm3 Sodium (137-145) mmol/L Chloride (98-107) mmol/L BUN 25 H (7-17) mg/dL Glucose (65-100) mg/dL Calcium 8.0 L (8.4-10.2) mg/dL AST (5-40) units/L ALT (7-56) units/L Total Protein (6.3-8.2) g/dL Albumin (3.9-5) g/dL Triglycerides (2-149) mg/dL LDL Cholesterol Direct (50-130) mg/dL HDL Cholesterol (40-59) mg/dL <NANCY GAFFNEY - Last Filed: 02/03/21 16:05> Assessment and Plan - Patient Problems (1) delivery, delivered, current hospitalization Current Visit: Yes Status: Acute Plan to address problem: Stable obstetrically Remove w[place]ster Ok to allow home when approved by hospitalist and Nephrology (2) Peripartum cardiomyopathy Current Visit: Yes Status: Acute Plan to address problem: She was informed she should never get agin b/c that may kill her. She desires sterilization, instrd not to have sex and will proceed with sterilization after medical clearance has been obtained. She agrees to Paragard IUD placement until sterilization can be performed. Although this baby will be discharged to [facility] she was instrd not to breastfeed should she gain custody of this baby because the medications she requires to stay alive may harm the baby. (3) Pulmonary embolism Current Visit: Yes Status: Acute Plan to address problem: Madalyn is ok for her to take since she si not breast feeding (4) Methamphetamine abuse Current Visit: Yes Status: Chronic Plan to address problem: This baby will be discharged to [facility] (5) Body mass index 33.0-33.9, adult Current Visit: Yes Status: Chronic (6) Acute kidney injury Current Visit: Yes Status: Resolved (7) Hemolysis, elevated liver enzymes, and low platelet (HELLP) syndrome during , delivered Current Visit: Yes Status: Resolved (8) Hyperkalemia Current Visit: Yes Status: Resolved (9) Hyponatremia Current Visit: Yes Status: Resolved (10) Uterine scar from previous delivery Current Visit: Yes Status: Acute (11) No care in current Current Visit: Yes Status: Acute (12) Chronic hypertension Current Visit: No Status: Chronic Objective - Vital Signs Latest vital signs: Vital Signs Temp Pulse Resp BP BP Pulse Ox Pulse Ox 02/03/21 07:47 98.7 F 99 H 18 156/99 100 02/03/21 06:04 101 H 142/85 100 02/03/21 05:06 82 167/106 02/03/21 04:35 98.9 F 82 18 167/106 02/03/21 00:26 96 H 145/89 98 02/03/21 00:25 98.6 F 02/02/21 22:27 97 02/02/21 21:36 91 H 164/100 02/02/21 21:35 91 H 164/100 02/02/21 21:34 164/100 02/02/21 21:00 98 02/02/21 16:05 98.9 F 90 19 146/86 98 Pulse Ox 02/03/21 07:47 02/03/21 06:04 02/03/21 05:06 02/03/21 04:35 02/03/21 00:26 02/03/21 00:25 02/02/21 22:27 02/02/21 21:36 02/02/21 21:35 02/02/21 21:34 02/02/21 21:00 98 02/02/21 16:05 Intake and Output 02/03/21 02/03/21 02/03/21 06:59 14:59 22:59 Intake Total 1080 Output Total 3700 Balance -2620 Intake: Oral 1080 Output: Urine 3700 Indwelling Catheter 3700 Other: Total, Intake Amount 480 Total, Output Amount 2500 - Exam Narrative Exam: Patient asleep, easily aoused, appropriately responsive Breast soft, NT noengorgment. Abs: soft, incision pfannestial, C/D/I, no s/s infection - Labs Labs: Abnormal lab results 02/02/21 02/03/21 02/03/21 Range/Units 13:36 07:09 10:02 Hgb 9.9 L (10.1-14.3) gm/dl Seg Neuts % (Manual) 82.0 H (40.0-70.0) % Lymphocytes % (Manual) 7.0 L (13.4-35.0) % Nucleated RBC % 2.0 H (0.0-0.9) % Seg Neutrophils # Man 8.7 H (1.8-7.7) K/mm3 Lymphocytes # (Manual) 0.7 L (1.2-5.4) K/mm3 BUN 25 H (7-17) mg/dL Calcium 8.0 L (8.4-10.2) mg/dL
--- NOTE | 2021-02-03 08:47 | Progress Note ---
Assessment and Plan 1. Acute kidney injury: CASSIE in the setting of HELLP syndrome. Proteinuria noted. Renal US negative. Monitor renal function. Creatinine level is better. Avoid nephrotoxic agents. Meds dosage based on GFR. 2. FEN: Hyperkalemia, improved, monitor. Metabolic acidosis, 2/2 CASSIE, improved, monitor. Hyponatremia, Sodium level is better, monitor. Normal serum Osm. Replete lytes as needed. Monitor lytes and volume status. 3. HFrEF: 4 chamber dilated Cardiomyopathy. Followed by Cards. 4. Leukocytosis, POA: Improved. Monitor. 5. HEELP syndrome. 6. Anemia, POA: Trend. 7. S/p 01/30. Will sign off. Subjective: Patient was seen and examined at the bedside. Doing ok. RN at the bedside. Examination: General appearance: well-developed, appears stated age, no distress HEENT: atraumatic, no jaundice Neck: trachea midline Respiratory: ctab Heart: S1S2, regular, no murmur Abdomen: soft, bowel sounds heard, lower abd dressing, slight tenderness noted Integumentary: no rash on the inspected area Neurologic: AO, able to move extremities Ext: ext and dependent edema noted Subjective Date of service: 02/03/21 Principal diagnosis: s/p , POD #4, HELLP Syndrome, cardiomyopathy, CASSIE Objective - Vital Signs Vital signs: Vital Signs - 12hr 02/02/21 02/02/21 02/02/21 21:00 21:34 21:35 Temperature Pulse Rate 91 H Respiratory Rate Blood Pressure 164/100 164/100 Blood Pressure [Right] O2 Sat by Pulse Oximetry O2 Sat by Pulse 98 Oximetry [ Bilateral Throughout] O2 Sat by Pulse 98 Oximetry [ Throughout] 02/02/21 02/02/21 02/03/21 21:36 22:27 00:25 Temperature 98.6 F Pulse Rate 91 H Respiratory Rate Blood Pressure 164/100 Blood Pressure [Right] O2 Sat by Pulse 97 Oximetry O2 Sat by Pulse Oximetry [ Bilateral Throughout] O2 Sat by Pulse Oximetry [ Throughout] 02/03/21 02/03/21 02/03/21 00:26 04:35 05:06 Temperature 98.9 F Pulse Rate 96 H 82 82 Respiratory 18 Rate Blood Pressure 145/89 167/106 Blood Pressure 167/106 [Right] O2 Sat by Pulse 98 Oximetry O2 Sat by Pulse Oximetry [ Bilateral Throughout] O2 Sat by Pulse Oximetry [ Throughout] 02/03/21 02/03/21 06:04 07:47 Temperature 98.7 F Pulse Rate 101 H 99 H Respiratory 18 Rate Blood Pressure 142/85 156/99 Blood Pressure [Right] O2 Sat by Pulse 100 100 Oximetry O2 Sat by Pulse Oximetry [ Bilateral Throughout] O2 Sat by Pulse Oximetry [ Throughout] - Lab 02/03/21 10:02 02/03/21 07:09 Most recent lab results Calcium 8.0 mg/dL (8.4-10.2) L 02/03/21 07:09 Magnesium 6.20 mg/dL (1.7-2.3) H 01/31/21 09:00 Urine Creatinine < 4.2 mg/dL (0.1-20.0) 01/31/21 14:42 Urine Sodium 11 mmol/L 01/31/21 14:42 Urine Total Protein 776 mg/dL (5-11.8) H 01/30/21 Unknown Medications & Allergies - Medications Allergies/Adverse Reactions: Allergies No Known Allergies Allergy (Unverified 03/23/18 14:50) Home Medications: Home Medications Medication Instructions Recorded Confirmed Last Taken Type No Known Home Medications [No 01/31/21 01/31/21 Unknown History Reported Home Medications] Active Medications: Generic Name Dose Route Start Last Admin Trade Name Freq PRN Reason Stop Dose Admin Aspirin 81 mg 02/02/21 19:00 02/02/21 19:27 Aspirin Ec 81 Mg Tab PO 81 mg QDAY JONATAN Administration Carvedilol 6.25 mg 02/02/21 22:00 02/02/21 21:35 Carvedilol 6.25 Mg Tab PO 6.25 mg BID JONATAN Administration Ferrous Sulfate 325 mg 01/31/21 10:00 02/02/21 09:22 Ferrous Sulfate 325 Mg Tab PO 325 mg QDAY JONATAN Administration Furosemide 40 mg 02/02/21 22:00 02/02/21 21:35 Furosemide 40 Mg Tab PO 40 mg QDAY JONATAN Administration Hydralazine HCl 10 mg 01/31/21 09:00 02/03/21 05:06 Hydralazine 20 Mg/1 Ml Inj IV 10 mg ONCE PRN Administration Hypertension Hydromorphone HCl 0.25 mg 01/31/21 09:00 02/02/21 16:32 Hydromorphone 1 Mg/1 Ml Inj IV 0.25 mg Q4H PRN Administration Pain , MODERATE(4-6) Hydromorphone HCl 0.5 mg 01/31/21 09:00 02/03/21 08:21 Hydromorphone 1 Mg/1 Ml Inj IV 0.5 mg Q4H PRN Administration Pain , Severe (7-10) Lidocaine/Prilocaine 1 applic 01/30/21 17:18 Emla Cream 5 Gm TP ONCE PRN for [place] catheter insertion Multi-Ingredient Ointment 1 applic 01/30/21 19:40 Lanolin/Zinc/Dimethicone (Lansinoh) 7 Gm TP PRN PRN dryness/cracking Naloxone HCl 0.2 mg 01/30/21 18:14 Naloxone 0.4 Mg/1 Ml Inj IV Q2MIN PRN Res Rate </= 8 or 02 SAT < 92% Naloxone HCl 0.1 mg 01/30/21 19:40 Naloxone 0.4 Mg/1 Ml Inj IV Q2MIN PRN Res Rate </= 8 or 02 SAT < 92% Ondansetron HCl 4 mg 01/30/21 18:14 Ondansetron 4 Mg/2 Ml Inj IV Q8H PRN Nausea And Vomiting Simethicone 80 mg 01/30/21 19:40 Simethicone 80 Mg Chew Tab PO Q6H PRN Gas pain Sodium Bicarbonate 1,300 mg 01/31/21 14:00 02/02/21 19:27 Sodium Bicarbonate 650 Mg Tab PO 1,300 mg TID JONATAN Administration Sodium Chloride 10 ml 01/30/21 20:00 02/02/21 09:23 Sodium Chloride 0.9% 10 Ml Flush Syringe IV 02/09/21 19:59 10 ml PRN NR Administration Spironolactone 25 mg 02/02/21 22:00 02/02/21 21:35 Spironolactone 25 Mg Tab PO 25 mg QDAY JONATAN Administration Valsartan 80 mg 02/02/21 22:00 02/02/21 21:36 Valsartan 40 Mg Tab PO 80 mg BID JONATAN Administration Witch Connie/Glycerin 1 each 01/30/21 19:40 Witch Connie/ Glycerin Pad TP PRN PRN Hemorrhoids/cleansing/soothing
--- NOTE | 2021-02-03 09:39 | Cat Scan Report ---
CTA CHEST WITH CONTRAST INDICATION : pulmonary Embolism OMNI 350 100 ML. TECHNIQUE: Axial imaging performed through the chest, with contrast bolus timing set to maximize opa cification of the pulmonary arteries. Sagittal and coronal reformatted images. 3-plane MIP reformatte d images were obtained. All CT scans at this location are performed using CT dose reduction for ALAR A by means of automated exposure control. Omnipaque 350 100 mL of intravenous contrast administered. COMPARISON: Nuclear medicine perfusion scan performed yesterday. AP chest performed 02/01/2021. FINDINGS: Bolus: Contrast bolus timing is adequate. PTE: Multiple bilateral small pulmonary arterial filling defects are identified in the second and th ird order branches leading to the left upper lobe, left lower lobe, and right lower lobe. Mediastinum: There is mild cardiomegaly and small to moderate pericardial effusion. No findings to s uggest right heart strain. The thoracic aorta and great vessels are unremarkable. No pathologic medi astinal adenopathy. Lungs: Mild congestive changes are evident in both lungs. Small bilateral layering pleural effusions are noted. No infiltrate or pneumothorax. Bones: No significant abnormality. Upper abdomen: Limited imaging of the upper abdomen shows nothing acute. IMPRESSION: Positive for multiple, bilateral small pulmonary emboli as described. Superimposed mild CHF is also suspected as described. CRITICAL RESULT: Time of Discovery (METAL SHAPING MACHINE OPERATOR/CDT): 0828 hours Time of Communication (METAL SHAPING MACHINE OPERATOR/CDT): 0833 hours Licensed Practitioner Receiving Report: Dr. Monzon Read-Back Performed: Yes. Signer Name: Kobe Mueller Jr, MD Signed: 02/03/2021 9:34 AM Workstation Name: [id number]
[2021-02-03] MEDS: carvediloL 6.25 MG TAB PO SCH ×2 (09:41→21:34)
[2021-02-03] MEDS: SPIRONOLACTONE 25 MG TAB PO SCH (09:42)
[2021-02-03] MEDS: SODIUM BICARBONATE 650 MG TAB PO SCH ×3 (09:42→21:34)
[2021-02-03] MEDS: ASPIRIN EC 81 MG TAB PO SCH (09:42)
[2021-02-03] MEDS: FERROUS SULFATE 325 MG TAB PO SCH (09:42)
[2021-02-03] MEDS: VALSARTAN 40 MG TAB PO SCH ×2 (09:42→21:34)
[2021-02-03] MEDS: FUROSEMIDE 40 MG TAB PO SCH (09:42)
[2021-02-03] MEDS ORDERED: WARFARIN 10 MG TAB PO ONE (09:55)
[2021-02-03] MEDS ORDERED: HEPARIN 10,000 UNITS/10 ML VIAL IV NR (09:57)
[2021-02-03] MEDS ORDERED: FUROSEMIDE 40 MG/4 ML INJ IV NR (10:00)
[2021-02-03 10:21] LABS: Hematocrit 32.9 % (30.3-42.9); Hemoglobin 9.9 gm/dl (10.1-14.3)
[2021-02-03 10:29] LABS: INR 0.95 (0.87-1.13); Partial Thromboplastin Time 28.5 Sec. (24.2-36.6)
--- NOTE | 2021-02-03 10:57 | Progress Note ---
Assessment and Plan Assessment and plan: Patient is a 35 year old female with past medical hx of Chronic HTN was taken off lisinpril per patient presented to the hospital for concern of HELLP syndrome and underwent C section 01/30. She unfortunately had poor care and also has hx of tobacco smoking and methamphetamin use through out her .During visit was noted to have Hyponatremia and Leukocoytosis with worsening renal function We are consulted to assist with management She denies any chest pain, nausea and vomiting. 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 Nephrology input noted. DVT/GI prophy 02/01/21 Patient is seen and examined. Patient complained of shortness of breath and mild swelling of the body. Patient WBC 16.8, hemoglobin 9.7 hematocrit 31.0. Patient potassium is 5.8, BUN 49 and creatinine 2.0. Patient is on bicarb drip. Kayexalate 30 g p.o. every 4 hours x2 dose. Nephrology follow-up. Cardiology consultation. Echocardiogram. VQ scan rule out PE. Transfer the patient to the telemetry. Recheck CBC BMP in the morning. Continue current management 02/02: This patient was transferred to the acute medical side due to shortness of breath has been seen by cardiology recommended an echocardiogram which is pending VQ scan is also pending. For now we will continue current management. Still mildly hyponatremic. Nephrology following and corrected also hyp erkalemia. May need further Kayexalate but will defer to butadiene converter helper. Counseling amphetamines provided to the patient for 15 minutes. We will add a nebulizer treatment to assist with current management of the patient chest x-ray does not show any volume overload at this time. 02/03: Patient seen and examined, CTA done due to the inclusive nature of the V/Q, Showed bilateral pulmonary Emboli. Discussed with patient and also with OB team, patient will not be breast feeding. Will switch to Eliquis and discharge tomorrow. For now continue on current therapy. Also gave a dose of lasix. Plan a nd risk factors discussed in detail with the patient. History Interval history: Patient seen and examined this morning still some shortness of breath Hospitalist Physical - Physical exam Narrative exam: VITAL SIGNS: Reviewed. GENERAL: The patient appears normally developed, Vital signs as documented. HEAD: No signs of head trauma. EYES: Pupils are equal. Extraocular motions intact. EARS: Hearing grossly intact. MOUTH: Oropharynx is normal. NECK: No adenopathy, no JVD. CHEST: Chest with clear breath sounds bilaterally. No wheezes, rales, or rhonchi. CARDIAC: Regular rate and rhythm. S1 and S2, without murmurs, gallops, or rubs. VASCULAR: No Edema. Peripheral pulses normal and equal in all extremities. ABDOMEN: Surgical lesion, Soft, non tender and non distended. No rebound or guarding, and no masses palpated. Bowel Sounds normal. MUSCULOSKELETAL: Good range of motion of all major joints. Extremities without clubbing, cyanosis or edema. NEUROLOGIC EXAM: Alert and oriented x 3, a bit anxious no focal sensory or strength deficits. Speech normal. Follows commands. PSYCHIATRIC: Mood normal. SKIN: detail exam as documented in skin assessment - Constitutional Vitals: Temp Pulse Resp BP Pulse Ox 98.7 F 99 H 18 156/99 100 02/03/21 07:47 02/03/21 07:47 02/03/21 07:47 02/03/21 07:47 02/03/21 07:47 General appearance: Present: no acute distress Results - Labs CBC & Chem 7: 02/03/21 10:02 02/03/21 07:09 Labs: Laboratory Last Values WBC 10.6 K/mm3 (4.5-11.0) 02/02/21 13:36 RBC 3.73 M/mm3 (3.65-5.03) 02/02/21 13:36 Hgb 9.9 gm/dl (10.1-14.3) L 02/03/21 10:02 Hct 32.9 % (30.3-42.9) 02/03/21 10:02 MCV 81 fl (79-97) 02/02/21 13:36 MCH 26 pg (28-32) L 02/02/21 13:36 MCHC 32 % (30-34) 02/02/21 13:36 RDW 18.1 % (13.2-15.2) H 02/02/21 13:36 Plt Count 264 K/mm3 (140-440) 02/03/21 10:02 Add Manual Diff Complete 02/02/21 13:36 Total Counted 100 02/02/21 13:36 Seg Neuts % (Manual) 82.0 % (40.0-70.0) H 02/02/21 13:36 Band Neutrophils % 2.0 % 02/02/21 13:36 Lymphocytes % (Manual) 7.0 % (13.4-35.0) L 02/02/21 13:36 Monocytes % (Manual) 7.0 % (0.0-7.3) 02/02/21 13:36 Basophils % (Manual) 1.0 % (0.0-1.8) 02/02/21 13:36 Myelocytes % 1.0 % 02/02/21 13:36 Nucleated RBC % 2.0 % (0.0-0.9) H 02/02/21 13:36 Seg Neutrophils # Man 8.7 K/mm3 (1.8-7.7) H 02/02/21 13:36 Band Neutrophils # 0.2 K/mm3 02/02/21 13:36 Lymphocytes # (Manual) 0.7 K/mm3 (1.2-5.4) L 02/02/21 13:36 Abs React Lymphs (Man) 0.0 K/mm3 02/02/21 13:36 Monocytes # (Manual) 0.7 K/mm3 (0.0-0.8) 02/02/21 13:36 Eosinophils # (Manual) 0.0 K/mm3 (0.0-0.4) 02/02/21 13:36 Basophils # (Manual) 0.1 K/mm3 (0.0-0.1) 02/02/21 13:36 Metamyelocytes # 0.0 K/mm3 02/02/21 13:36 Myelocytes # 0.1 K/mm3 02/02/21 13:36 Promyelocytes # 0.0 K/mm3 02/02/21 13:36 Blast Cells # 0.0 K/mm3 02/02/21 13:36 WBC Morphology Not Reportable 02/02/21 13:36 Hypersegmented Neuts Not Reportable 02/02/21 13:36 Hyposegmented Neuts Not Reportable 02/02/21 13:36 Hypogranular Neuts Not Reportable 02/02/21 13:36 Smudge Cells Not Reportable 02/02/21 13:36 Toxic Granulation Not Reportable 02/02/21 13:36 Toxic Vacuolation Not Reportable 02/02/21 13:36 Dohle Bodies Not Reportable 02/02/21 13:36 Pelger-Huet Anomaly Not Reportable 02/02/21 13:36 Kaley Rods Not Reportable 02/02/21 13:36 Platelet Estimate Consistent w auto 02/02/21 13:36 Clumped Platelets Not Reportable 02/02/21 13:36 Plt Clumps, EDTA Not Reportable 02/02/21 13:36 Large Platelets Few 02/02/21 13:36 Giant Platelets Not Reportable 02/02/21 13:36 Platelet Satelliting Not Reportable 02/02/21 13:36 Plt Morphology Comment Not Reportable 02/02/21 13:36 RBC Morphology Not Reportable 02/02/21 13:36 Dimorphic RBCs Not Reportable 02/02/21 13:36 Polychromasia Not Reportable 02/02/21 13:36 Hypochromasia Not Reportable 02/02/21 13:36 Poikilocytosis Not Reportable 02/02/21 13:36 Anisocytosis 1+ 02/02/21 13:36 Microcytosis Not Reportable 02/02/21 13:36 Macrocytosis Not Reportable 02/02/21 13:36 Spherocytes Not Reportable 02/02/21 13:36 Pappenheimer Bodies Not Reportable 02/02/21 13:36 Sickle Cells Not Reportable 02/02/21 13:36 Target Cells Not Reportable 02/02/21 13:36 Tear Drop Cells Not Reportable 02/02/21 13:36 Ovalocytes Not Reportable 02/02/21 13:36 Helmet Cells Not Reportable 02/02/21 13:36 [place] Bodies Not Reportable 02/02/21 13:36 [place] Rings Not Reportable 02/02/21 13:36 [place] Cells Not Reportable 02/02/21 13:36 Bite Cells Not Reportable 02/02/21 13:36 Crenated Cell Not Reportable 02/02/21 13:36 Elliptocytes Not Reportable 02/02/21 13:36 Acanthocytes (Spur) Not Reportable 02/02/21 13:36 Rouleaux Not Reportable 02/02/21 13:36 Hemoglobin C Crystals Not Reportable 02/02/21 13:36 Schistocytes Not Reportable 02/02/21 13:36 Malaria parasites Not Reportable 02/02/21 13:36 Zachary Bodies Not Reportable 02/02/21 13:36 Hem Pathologist Commnt No 02/02/21 13:36 PT 13.7 Sec. (12.2-14.9) 02/03/21 10:02 INR 0.95 (0.87-1.13) 02/03/21 10:02 APTT 28.5 Sec. (24.2-36.6) 02/03/21 10:02 Fibrinogen 283 mg/dl (211-480) 01/30/21 23:37 Sodium 137 mmol/L (137-145) 02/03/21 07:09 Potassium 4.9 mmol/L (3.6-5.0) 02/03/21 07:09 Chloride 101.0 mmol/L (98-107) 02/03/21 07:09 Carbon Dioxide 25 mmol/L (22-30) 02/03/21 07:09 Anion Gap 16 mmol/L 02/03/21 07:09 BUN 25 mg/dL (7-17) H 02/03/21 07:09 Creatinine 0.8 mg/dL (0.6-1.2) 02/03/21 07:09 Estimated GFR > 60 ml/min 02/03/21 07:09 BUN/Creatinine Ratio 31 % 02/03/21 07:09 Glucose 93 mg/dL (65-100) 02/03/21 07:09 Osmolality 284 Mosm/kg 01/31/21 14:05 Uric Acid 12.1 mg/dL (3.5-7.6) H 01/30/21 17:20 Calcium 8.0 mg/dL (8.4-10.2) L 02/03/21 07:09 Magnesium 6.20 mg/dL (1.7-2.3) H 01/31/21 09:00 Total Bilirubin 0.20 mg/dL (0.1-1.2) 02/02/21 13:36 Direct Bilirubin 0.2 mg/dL (0-0.2) 01/31/21 14:05 Indirect Bilirubin 0.1 mg/dL 01/31/21 14:05 AST 70 units/L (5-40) H 02/02/21 13:36 ALT 72 units/L (7-56) H 02/02/21 13:36 Alkaline Phosphatase 119 units/L (35-129) 02/02/21 13:36 Lactate Dehydrogenase 569 units/L (91-180) H 01/31/21 14:05 Total Protein 5.3 g/dL (6.3-8.2) L 02/02/21 13:36 Albumin 2.4 g/dL (3.9-5) L 02/02/21 13:36 Albumin/Globulin Ratio 0.8 % 02/02/21 13:36 Triglycerides 347 mg/dL (2-149) H 02/02/21 13:36 Cholesterol 121 mg/dL (50-199) 02/02/21 13:36 LDL Cholesterol Direct 46 mg/dL (50-130) L 02/02/21 13:36 HDL Cholesterol 17 mg/dL (40-59) L 02/02/21 13:36 Cholesterol/HDL Ratio 7.11 % 02/02/21 13:36 HCG, Quant 69348 mIU/mL (0-4) H 01/30/21 17:20 Urine Color Yellow (Yellow) 01/30/21 Unknown Urine Turbidity Slightly-cloudy (Clear) 01/30/21 Unknown Urine pH 5.0 (5.0-7.0) 01/30/21 Unknown Ur Specific Henry 1.014 (1.003-1.030) 01/30/21 Unknown Urine Protein >500 mg/dL (Negative) 01/30/21 Unknown Urine Glucose (UA) Neg mg/dL (Negative) 01/30/21 Unknown Urine Ketones Neg mg/dL (Negative) 01/30/21 Unknown Urine Blood Sm (Negative) 01/30/21 Unknown Urine Nitrite Neg (Negative) 01/30/21 Unknown Urine Bilirubin Neg (Negative) 01/30/21 Unknown Urine Urobilinogen 4.0 mg/dL (<2.0) 01/30/21 Unknown Ur Leukocyte Esterase Neg (Negative) 01/30/21 Unknown Urine WBC (Auto) 6.0 /HPF (0.0-6.0) 01/30/21 Unknown Urine RBC (Auto) 5.0 /HPF (0.0-6.0) 01/30/21 Unknown U Epithel Cells (Auto) 4.0 /HPF (0-13.0) 01/30/21 Unknown Urine Mucus Few /HPF 01/30/21 Unknown Urine Yeast (Budding) Few /HPF 01/30/21 Unknown Urine Eosinophils None seen (None Seen) 01/31/21 14:42 Urine Osmolality 529 Mosm/kg 01/31/21 14:42 Urine Creatinine < 4.2 mg/dL (0.1-20.0) 01/31/21 14:42 Urine Sodium 11 mmol/L 01/31/21 14:42 Urine Total Protein 776 mg/dL (5-11.8) H 01/30/21 Unknown Urine Opiates Screen Presumptive negative 01/30/21 Unknown Urine Methadone Screen Presumptive negative 01/30/21 Unknown Ur Barbiturates Screen Presumptive negative 01/30/21 Unknown Ur Phencyclidine Scrn Presumptive negative 01/30/21 Unknown Ur Amphetamines Screen Presumptive positive 01/30/21 Unknown U Benzodiazepines Scrn Presumptive negative 01/30/21 Unknown Urine Cocaine Screen Presumptive negative 01/30/21 Unknown U Marijuana (THC) Screen Presumptive negative 01/30/21 Unknown Drugs of Abuse Note Disclamer 01/30/21 Unknown Syphilis IgG Antibody Nonreactive (NonReactive) 01/30/21 17:20 Coronavirus (PCR) Negative (Negative) 01/31/21 Unknown Hep Bs Antigen Nonreactive (Negative) 01/30/21 16:17 Hepatitis C Antibody Non-reactive (NonReactive) 01/30/21 17:20 HIV 1&2 Antibody Rapid Non react (Non React) 01/30/21 17:20 HIV P24 Antigen Non react (Non React) 01/30/21 17:20 Rubella IgG Antibody Immune (Immune) 01/30/21 17:20 Blood Type B POSITIVE 01/30/21 17:20 Antibody Screen Negative 01/30/21 17:20 Microbiology: Microbiology 01/31/21 16:16 Urine,Clean Catch Urine Culture - Final NO GROWTH AFTER 48 HOURS Active Medications - Current Medications Current Medications: Generic Name Dose Route Start Last Admin Trade Name Freq PRN Reason Stop Dose Admin Aspirin 81 mg 02/02/21 19:00 02/03/21 09:42 Aspirin Ec 81 Mg Tab PO 81 mg QDAY JONATAN Administration Carvedilol 6.25 mg 02/02/21 22:00 02/03/21 09:41 Carvedilol 6.25 Mg Tab PO 6.25 mg BID JONATAN Administration Ferrous Sulfate 325 mg 01/31/21 10:00 02/03/21 09:42 Ferrous Sulfate 325 Mg Tab PO 325 mg QDAY JONATAN Administration Furosemide 40 mg 02/02/21 22:00 02/03/21 09:42 Furosemide 40 Mg Tab PO 40 mg QDAY JONATAN Administration Furosemide 40 mg 02/03/21 10:00 Furosemide 40 Mg/4 Ml Inj IV 02/03/21 12:00 ONCE@1000 NR Heparin Sodium (Porcine) 3,600 unit 02/03/21 09:57 Heparin 10,000 Units/10 Ml Vial 40 unit/kg (3600 unit) 02/03/21 11:30 IV ONCE NR Heparin Sodium (Porcine) 3,600 unit 02/03/21 11:00 Heparin 10,000 Units/10 Ml Vial 40 unit/kg (3600 unit) IV Q6H PRN Anti-Xa Assay < 0.1 units/ml Hydralazine HCl 10 mg 01/31/21 09:00 02/03/21 05:06 Hydralazine 20 Mg/1 Ml Inj IV 10 mg ONCE PRN Administration Hypertension Hydromorphone HCl 0.25 mg 01/31/21 09:00 02/02/21 16:32 Hydromorphone 1 Mg/1 Ml Inj IV 0.25 mg Q4H PRN Administration Pain , MODERATE(4-6) Hydromorphone HCl 0.5 mg 01/31/21 09:00 02/03/21 08:21 Hydromorphone 1 Mg/1 Ml Inj IV 0.5 mg Q4H PRN Administration Pain , Severe (7-10) Heparin Sodium/Sodium Chloride 25,000 unit in 500 mls @ 26 mls/hr 02/03/21 10:00 Heparin/ 0.45% Nacl-25,000 Unit/500 Ml IV TITR JONATAN Protocol 1,300 UNITS/HR Lidocaine/Prilocaine 1 applic 01/30/21 17:18 Emla Cream 5 Gm TP ONCE PRN for [place] catheter insertion Multi-Ingredient Ointment 1 applic 01/30/21 19:40 Lanolin/Zinc/Dimethicone (Lansinoh) 7 Gm TP PRN PRN dryness/cracking Naloxone HCl 0.2 mg 01/30/21 18:14 Naloxone 0.4 Mg/1 Ml Inj IV Q2MIN PRN Res Rate </= 8 or 02 SAT < 92% Naloxone HCl 0.1 mg 01/30/21 19:40 Naloxone 0.4 Mg/1 Ml Inj IV Q2MIN PRN Res Rate </= 8 or 02 SAT < 92% Ondansetron HCl 4 mg 01/30/21 18:14 Ondansetron 4 Mg/2 Ml Inj IV Q8H PRN Nausea And Vomiting Simethicone 80 mg 01/30/21 19:40 Simethicone 80 Mg Chew Tab PO Q6H PRN Gas pain Sodium Bicarbonate 1,300 mg 01/31/21 14:00 02/03/21 09:42 Sodium Bicarbonate 650 Mg Tab PO 1,300 mg TID JONATAN Administration Sodium Chloride 10 ml 01/30/21 20:00 02/02/21 09:23 Sodium Chloride 0.9% 10 Ml Flush Syringe IV 02/09/21 19:59 10 ml PRN NR Administration Spironolactone 25 mg 02/02/21 22:00 02/03/21 09:42 Spironolactone 25 Mg Tab PO 25 mg QDAY JONATAN Administration Valsartan 80 mg 02/02/21 22:00 02/03/21 09:42 Valsartan 40 Mg Tab PO 80 mg BID JONATAN Administration Warfarin Sodium 10 mg 02/03/21 09:55 Warfarin 10 Mg Tab PO 02/03/21 09:56 ONCE ONE Protocol Warfarin Sodium 5 mg 02/03/21 17:00 Warfarin 5 Mg Tab PO DAILY@1700 [facility] Protocol Witch Connie/Glycerin 1 each 01/30/21 19:40 Witch Connie/ Glycerin Pad TP PRN PRN Hemorrhoids/cleansing/soothing
[2021-02-03] MEDS ORDERED: HEPARIN 10,000 UNITS/10 ML VIAL IV PRN (11:00)
[2021-02-03] MEDS: HEPARIN/ 0.45% NACL DRIP 25,000 UNIT/500 ML BAG IV SCH (11:04)
--- NOTE | 2021-02-03 11:30 | Electrocardiograph Report ---
[facility] Test Date: 2021-02-01 Test Time: 09:40:09 Pat Name: TADEO SALGADO Department: Room: A482 Gender: F [employer] Visitor: ADÁN : 1985 Requested By: NANCY GAFFNEY Order Number: [id number] Reading MD: Milvia Quigley Measurements Intervals [place] Rate: 71 P: 48 ID: [id number] QRS: 78 QRSD: 90 T: -58 QT: 524 QTc: 572 Interpretive Statements Sinus rhythm Probable left atrial enlargement Incomplete right bundle branch block Prolonged QT interval Nonspecific T wave change No previous ECG available for comparison Electronically Signed On 02-03-2021 11:29:34 EST by Milvia Quigley
--- NOTE | 2021-02-03 12:15 | Progress Note ---
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 Patient advised to not breast-feed on her heart failure medications and to refrain from any future pregnancies. Subjective Date of service: 02/03/21 Principal diagnosis: s/p , POD #4, HELLP Syndrome, cardiomyopathy, CASSIE Interval history: Patient reports shortness of breath with minimal exertion. Admits she is diuresing well. Objective Vital Signs Temp Pulse Resp BP BP Pulse Ox Pulse Ox 02/03/21 07:47 98.7 F 99 H 18 156/99 100 02/03/21 06:04 101 H 142/85 100 02/03/21 05:06 82 167/106 02/03/21 04:35 98.9 F 82 18 167/106 02/03/21 00:26 96 H 145/89 98 02/03/21 00:25 98.6 F 02/02/21 22:27 97 02/02/21 21:36 91 H 164/100 02/02/21 21:35 91 H 164/100 02/02/21 21:34 164/100 02/02/21 21:00 98 02/02/21 16:05 98.9 F 90 19 146/86 98 02/02/21 12:54 97.8 F 89 19 141/84 97 Pulse Ox 02/03/21 07:47 02/03/21 06:04 02/03/21 05:06 02/03/21 04:35 02/03/21 00:26 02/03/21 00:25 02/02/21 22:27 02/02/21 21:36 02/02/21 21:35 02/02/21 21:34 02/02/21 21:00 98 02/02/21 16:05 02/02/21 12:54 - Physical Examination General: No Apparent Distress HEENT: Positive: PERRL Neck: Positive: neck supple Cardiac: Positive: Reg Rate and Rhythm Lungs: Positive: Decreased Breath Sounds Neuro: Positive: Grossly Intact - Labs and Meds Cardiac Enzymes 02/02/21 Range/Units 13:36 AST 70 H (5-40) units/L Coagulation 02/03/21 Range/Units 10:02 PT 13.7 (12.2-14.9) Sec. INR 0.95 (0.87-1.13) APTT 28.5 (24.2-36.6) Sec. Lipids 02/02/21 Range/Units 13:36 Triglycerides 347 H (2-149) mg/dL Cholesterol 121 (50-199) mg/dL HDL Cholesterol 17 L (40-59) mg/dL Cholesterol/HDL Ratio 7.11 % CBC 02/02/21 02/03/21 Range/Units 13:36 10:02 WBC 10.6 (4.5-11.0) K/mm3 RBC 3.73 (3.65-5.03) M/mm3 Hgb 9.7 L 9.9 L (10.1-14.3) gm/dl Hct 30.1 L 32.9 (30.3-42.9) % Plt Count 246 264 (140-440) K/mm3 Comprehensive Metabolic Panel 02/02/21 02/03/21 Range/Units 13:36 07:09 Sodium 134 L 137 (137-145) mmol/L Potassium 4.5 4.9 (3.6-5.0) mmol/L Chloride 97.6 L 101.0 (98-107) mmol/L Carbon Dioxide 26 D 25 (22-30) mmol/L BUN 37 H 25 H (7-17) mg/dL Creatinine 1.2 0.8 (0.6-1.2) mg/dL Glucose 101 H 93 (65-100) mg/dL Calcium 7.5 L 8.0 L (8.4-10.2) mg/dL AST 70 H (5-40) units/L ALT 72 H (7-56) units/L Alkaline Phosphatase 119 (35-129) units/L Total Protein 5.3 L (6.3-8.2) g/dL Albumin 2.4 L (3.9-5) g/dL
[2021-02-03] MEDS ORDERED: WARFARIN 7.5 MG TAB PO SCH (17:00)
[2021-02-03] MEDS ORDERED: WARFARIN 5 MG TAB PO SCH (17:00)
--- NOTE | 2021-02-03 17:31 | Vascular Lab Report ---
DUPLEX DOPPLER LOWER EXTREMITY VEINS, BILATERAL INDICATION / CLINICAL INFORMATION: dvt. Lower extremity swelling, status post , history of H ELLP syndrome TECHNIQUE: Duplex doppler imaging was performed through the veins of both lower extremities using [place] ous compression and other maneuvers. COMPARISON: None available. FINDINGS: RIGHT COMMON FEMORAL VEIN: Negative. RIGHT FEMORAL VEIN: Negative. RIGHT POPLITEAL VEIN: Negative. RIGHT CALF VEINS: Negative. LEFT COMMON FEMORAL VEIN: Negative. LEFT FEMORAL VEIN: Negative. LEFT POPLITEAL VEIN: Negative. LEFT CALF VEINS: Negative. ADDITIONAL FINDINGS: None. IMPRESSION: 1. No sonographic evidence for DVT in either lower extremity. Signer Name: Sukh Haro MD Signed: 02/03/2021 5:27 PM Workstation Name: [id number]
[2021-02-04 06:26] LABS: INR 0.98 (0.87-1.13)
[2021-02-04] MEDS: HYDROmorphone 1 MG/1 ML INJ IV PRN ×2 (06:40→12:50)
[2021-02-04] MEDS: HEPARIN/ 0.45% NACL DRIP 25,000 UNIT/500 ML BAG IV SCH (06:48)
--- NOTE | 2021-02-04 07:42 | Progress Note ---
Assessment and Plan Assessment and plan: Patient is a 35 year old female with past medical hx of Chronic HTN was taken off lisinpril per patient presented to the hospital for concern of HELLP syndrome and underwent C section 01/30. She unfortunately had poor care and also has hx of tobacco smoking and methamphetamin use through out her .During visit was noted to have Hyponatremia and Leukocoytosis with worsening renal function We are consulted to assist with management She denies any chest pain, nausea and vomiting. 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 Nephrology input noted. DVT/GI prophy 02/01/21 Patient is seen and examined. Patient complained of shortness of breath and mild swelling of the body. Patient WBC 16.8, hemoglobin 9.7 hematocrit 31.0. Patient potassium is 5.8, BUN 49 and creatinine 2.0. Patient is on bicarb drip. Kayexalate 30 g p.o. every 4 hours x2 dose. Nephrology follow-up. Cardiology consultation. Echocardiogram. VQ scan rule out PE. Transfer the patient to the telemetry. Recheck CBC BMP in the morning. Continue current management 02/02: This patient was transferred to the acute medical side due to shortness of breath has been seen by cardiology recommended an echocardiogram which is pending VQ scan is also pending. For now we will continue current management. Still mildly hyponatremic. Nephrology following and corrected also hyp erkalemia. May need further Kayexalate but will defer to sugar sampler. Counseling amphetamines provided to the patient for 15 minutes. We will add a nebulizer treatment to assist with current management of the patient chest x-ray does not show any volume overload at this time. 02/03: Patient seen and examined, CTA done due to the inclusive nature of the V/Q, Showed bilateral pulmonary Emboli. Discussed with patient and also with OB team, patient will not be breast feeding. Will switch to Eliquis and discharge tomorrow. For now continue on current therapy. Also gave a dose of lasix. Plan a nd risk factors discussed in detail with the patient. 02/04: Cleared for discharge. Patient is doing well this morning I have extensive discussion with her about her medical management the importance of taking the oral anticoagulation and also cessation of tobacco and other illicit drug use she verbalized understanding 20 minutes counseling was provided to the patient for each respectively Can go home on Eliquis. Case management to give Eliquis card. Must avoid all illicit drug use. History Interval history: Patient seen and examined this morning resting comfortably no new complaint Hospitalist Physical - Physical exam Narrative exam: VITAL SIGNS: Reviewed. GENERAL: The patient appears normally developed, Vital signs as documented. HEAD: No signs of head trauma. EYES: Pupils are equal. Extraocular motions intact. EARS: Hearing grossly intact. MOUTH: Oropharynx is normal. NECK: No adenopathy, no JVD. CHEST: Chest with clear breath sounds bilaterally. No wheezes, rales, or rhonchi. CARDIAC: Regular rate and rhythm. S1 and S2, without murmurs, gallops, or rubs. VASCULAR: No Edema. Peripheral pulses normal and equal in all extremities. ABDOMEN: Surgical lesion, Soft, non tender and non distended. No rebound or guarding, and no masses palpated. Bowel Sounds normal. MUSCULOSKELETAL: Good range of motion of all major joints. Extremities without clubbing, cyanosis or edema. NEUROLOGIC EXAM: Alert and oriented x 3, a bit anxious no focal sensory or strength deficits. Speech normal. Follows commands. PSYCHIATRIC: Mood normal. SKIN: detail exam as documented in skin assessment - Constitutional Vitals: Temp Pulse Resp BP Pulse Ox 98.5 F 98 H 18 158/96 97 02/04/21 04:38 02/04/21 04:38 02/04/21 04:38 02/04/21 04:38 02/04/21 04:38 General appearance: Present: no acute distress Results - Labs CBC & Chem 7: 02/04/21 09:21 02/04/21 09:21 Labs: Laboratory Last Values WBC 10.6 K/mm3 (4.5-11.0) 02/02/21 13:36 RBC 3.73 M/mm3 (3.65-5.03) 02/02/21 13:36 Hgb 9.9 gm/dl (10.1-14.3) L 02/03/21 10:02 Hct 32.9 % (30.3-42.9) 02/03/21 10:02 MCV 81 fl (79-97) 02/02/21 13:36 MCH 26 pg (28-32) L 02/02/21 13:36 MCHC 32 % (30-34) 02/02/21 13:36 RDW 18.1 % (13.2-15.2) H 02/02/21 13:36 Plt Count 264 K/mm3 (140-440) 02/03/21 10:02 Add Manual Diff Complete 02/02/21 13:36 Total Counted 100 02/02/21 13:36 Seg Neuts % (Manual) 82.0 % (40.0-70.0) H 02/02/21 13:36 Band Neutrophils % 2.0 % 02/02/21 13:36 Lymphocytes % (Manual) 7.0 % (13.4-35.0) L 02/02/21 13:36 Monocytes % (Manual) 7.0 % (0.0-7.3) 02/02/21 13:36 Basophils % (Manual) 1.0 % (0.0-1.8) 02/02/21 13:36 Myelocytes % 1.0 % 02/02/21 13:36 Nucleated RBC % 2.0 % (0.0-0.9) H 02/02/21 13:36 Seg Neutrophils # Man 8.7 K/mm3 (1.8-7.7) H 02/02/21 13:36 Band Neutrophils # 0.2 K/mm3 02/02/21 13:36 Lymphocytes # (Manual) 0.7 K/mm3 (1.2-5.4) L 02/02/21 13:36 Abs React Lymphs (Man) 0.0 K/mm3 02/02/21 13:36 Monocytes # (Manual) 0.7 K/mm3 (0.0-0.8) 02/02/21 13:36 Eosinophils # (Manual) 0.0 K/mm3 (0.0-0.4) 02/02/21 13:36 Basophils # (Manual) 0.1 K/mm3 (0.0-0.1) 02/02/21 13:36 Metamyelocytes # 0.0 K/mm3 02/02/21 13:36 Myelocytes # 0.1 K/mm3 02/02/21 13:36 Promyelocytes # 0.0 K/mm3 02/02/21 13:36 Blast Cells # 0.0 K/mm3 02/02/21 13:36 WBC Morphology Not Reportable 02/02/21 13:36 Hypersegmented Neuts Not Reportable 02/02/21 13:36 Hyposegmented Neuts Not Reportable 02/02/21 13:36 Hypogranular Neuts Not Reportable 02/02/21 13:36 Smudge Cells Not Reportable 02/02/21 13:36 Toxic Granulation Not Reportable 02/02/21 13:36 Toxic Vacuolation Not Reportable 02/02/21 13:36 Dohle Bodies Not Reportable 02/02/21 13:36 Pelger-Huet Anomaly Not Reportable 02/02/21 13:36 Kaley Rods Not Reportable 02/02/21 13:36 Platelet Estimate Consistent w auto 02/02/21 13:36 Clumped Platelets Not Reportable 02/02/21 13:36 Plt Clumps, EDTA Not Reportable 02/02/21 13:36 Large Platelets Few 02/02/21 13:36 Giant Platelets Not Reportable 02/02/21 13:36 Platelet Satelliting Not Reportable 02/02/21 13:36 Plt Morphology Comment Not Reportable 02/02/21 13:36 RBC Morphology Not Reportable 02/02/21 13:36 Dimorphic RBCs Not Reportable 02/02/21 13:36 Polychromasia Not Reportable 02/02/21 13:36 Hypochromasia Not Reportable 02/02/21 13:36 Poikilocytosis Not Reportable 02/02/21 13:36 Anisocytosis 1+ 02/02/21 13:36 Microcytosis Not Reportable 02/02/21 13:36 Macrocytosis Not Reportable 02/02/21 13:36 Spherocytes Not Reportable 02/02/21 13:36 Pappenheimer Bodies Not Reportable 02/02/21 13:36 Sickle Cells Not Reportable 02/02/21 13:36 Target Cells Not Reportable 02/02/21 13:36 Tear Drop Cells Not Reportable 02/02/21 13:36 Ovalocytes Not Reportable 02/02/21 13:36 Helmet Cells Not Reportable 02/02/21 13:36 [place] Bodies Not Reportable 02/02/21 13:36 [place] Rings Not Reportable 02/02/21 13:36 Hunters Cells Not Reportable 02/02/21 13:36 Bite Cells Not Reportable 02/02/21 13:36 Crenated Cell Not Reportable 02/02/21 13:36 Elliptocytes Not Reportable 02/02/21 13:36 Acanthocytes (Spur) Not Reportable 02/02/21 13:36 Rouleaux Not Reportable 02/02/21 13:36 Hemoglobin C Crystals Not Reportable 02/02/21 13:36 Schistocytes Not Reportable 02/02/21 13:36 Malaria parasites Not Reportable 02/02/21 13:36 Zachary Bodies Not Reportable 02/02/21 13:36 Haptoglobin 61 mg/dL (43-212) 01/31/21 14:05 Hem Pathologist Commnt No 02/02/21 13:36 PT 14.1 Sec. (12.2-14.9) 02/04/21 04:58 INR 0.98 (0.87-1.13) 02/04/21 04:58 APTT 28.5 Sec. (24.2-36.6) 02/03/21 10:02 Fibrinogen 283 mg/dl (211-480) 01/30/21 23:37 Heparin Anti-Xa Level 0.42 U.I./ml (0.3-0.7) 02/04/21 00:45 Sodium 137 mmol/L (137-145) 02/03/21 07:09 Potassium 4.9 mmol/L (3.6-5.0) 02/03/21 07:09 Chloride 101.0 mmol/L (98-107) 02/03/21 07:09 Carbon Dioxide 25 mmol/L (22-30) 02/03/21 07:09 Anion Gap 16 mmol/L 02/03/21 07:09 BUN 25 mg/dL (7-17) H 02/03/21 07:09 Creatinine 0.8 mg/dL (0.6-1.2) 02/03/21 07:09 Estimated GFR > 60 ml/min 02/03/21 07:09 BUN/Creatinine Ratio 31 % 02/03/21 07:09 Glucose 93 mg/dL (65-100) 02/03/21 07:09 Osmolality 284 Mosm/kg 01/31/21 14:05 Uric Acid 12.1 mg/dL (3.5-7.6) H 01/30/21 17:20 Calcium 8.0 mg/dL (8.4-10.2) L 02/03/21 07:09 Magnesium 6.20 mg/dL (1.7-2.3) H 01/31/21 09:00 Total Bilirubin 0.20 mg/dL (0.1-1.2) 02/02/21 13:36 Direct Bilirubin 0.2 mg/dL (0-0.2) 01/31/21 14:05 Indirect Bilirubin 0.1 mg/dL 01/31/21 14:05 AST 70 units/L (5-40) H 02/02/21 13:36 ALT 72 units/L (7-56) H 02/02/21 13:36 Alkaline Phosphatase 119 units/L (35-129) 02/02/21 13:36 Lactate Dehydrogenase 569 units/L (91-180) H 01/31/21 14:05 Total Protein 5.3 g/dL (6.3-8.2) L 02/02/21 13:36 Albumin 2.4 g/dL (3.9-5) L 02/02/21 13:36 Albumin/Globulin Ratio 0.8 % 02/02/21 13:36 Triglycerides 347 mg/dL (2-149) H 02/02/21 13:36 Cholesterol 121 mg/dL (50-199) 02/02/21 13:36 LDL Cholesterol Direct 46 mg/dL (50-130) L 02/02/21 13:36 HDL Cholesterol 17 mg/dL (40-59) L 02/02/21 13:36 Cholesterol/HDL Ratio 7.11 % 02/02/21 13:36 HCG, Quant 79428 mIU/mL (0-4) H 01/30/21 17:20 Urine Color Yellow (Yellow) 01/30/21 Unknown Urine Turbidity Slightly-cloudy (Clear) 01/30/21 Unknown Urine pH 5.0 (5.0-7.0) 01/30/21 Unknown Ur Specific [place] 1.014 (1.003-1.030) 01/30/21 Unknown Urine Protein >500 mg/dL (Negative) 01/30/21 Unknown Urine Glucose (UA) Neg mg/dL (Negative) 01/30/21 Unknown Urine Ketones Neg mg/dL (Negative) 01/30/21 Unknown Urine Blood Sm (Negative) 01/30/21 Unknown Urine Nitrite Neg (Negative) 01/30/21 Unknown Urine Bilirubin Neg (Negative) 01/30/21 Unknown Urine Urobilinogen 4.0 mg/dL (<2.0) 01/30/21 Unknown Ur Leukocyte Esterase Neg (Negative) 01/30/21 Unknown Urine WBC (Auto) 6.0 /HPF (0.0-6.0) 01/30/21 Unknown Urine RBC (Auto) 5.0 /HPF (0.0-6.0) 01/30/21 Unknown U Epithel Cells (Auto) 4.0 /HPF (0-13.0) 01/30/21 Unknown Urine Mucus Few /HPF 01/30/21 Unknown Urine Yeast (Budding) Few /HPF 01/30/21 Unknown Urine Eosinophils None seen (None Seen) 01/31/21 14:42 Urine Osmolality 529 Mosm/kg 01/31/21 14:42 Urine Creatinine < 4.2 mg/dL (0.1-20.0) 01/31/21 14:42 Urine Sodium 11 mmol/L 01/31/21 14:42 Urine Total Protein 776 mg/dL (5-11.8) H 01/30/21 Unknown Urine Opiates Screen Presumptive negative 01/30/21 Unknown Urine Methadone Screen Presumptive negative 01/30/21 Unknown Ur Barbiturates Screen Presumptive negative 01/30/21 Unknown Ur Phencyclidine Scrn Presumptive negative 01/30/21 Unknown Ur Amphetamines Screen Presumptive positive 01/30/21 Unknown U Benzodiazepines Scrn Presumptive negative 01/30/21 Unknown Urine Cocaine Screen Presumptive negative 01/30/21 Unknown U Marijuana (THC) Screen Presumptive negative 01/30/21 Unknown Drugs of Abuse Note Disclamer 01/30/21 Unknown Syphilis IgG Antibody Nonreactive (NonReactive) 01/30/21 17:20 Coronavirus (PCR) Negative (Negative) 01/31/21 Unknown Hep Bs Antigen Nonreactive (Negative) 01/30/21 16:17 Hepatitis C Antibody Non-reactive (NonReactive) 01/30/21 17:20 HIV 1&2 Antibody Rapid Non react (Non React) 01/30/21 17:20 HIV P24 Antigen Non react (Non React) 01/30/21 17:20 Rubella IgG Antibody Immune (Immune) 01/30/21 17:20 Blood Type B POSITIVE 01/30/21 17:20 Antibody Screen Negative 01/30/21 17:20 [place]/IV: Voiding Method Bedside Commode Active Medications - Current Medications Current Medications: Generic Name Dose Route Start Last Admin Trade Name Freq PRN Reason Stop Dose Admin Aspirin 81 mg 02/02/21 19:00 02/03/21 09:42 Aspirin Ec 81 Mg Tab PO 81 mg QDAY JONATAN Administration Carvedilol 6.25 mg 02/02/21 22:00 02/03/21 21:34 Carvedilol 6.25 Mg Tab PO 6.25 mg BID JONATAN Administration Ferrous Sulfate 325 mg 01/31/21 10:00 02/03/21 09:42 Ferrous Sulfate 325 Mg Tab PO 325 mg QDAY JONATAN Administration Furosemide 40 mg 02/02/21 22:00 02/03/21 09:42 Furosemide 40 Mg Tab PO 40 mg QDAY JONATAN Administration Hydralazine HCl 10 mg 01/31/21 09:00 02/03/21 17:21 Hydralazine 20 Mg/1 Ml Inj IV 10 mg ONCE PRN Administration Hypertension Hydromorphone HCl 0.25 mg 01/31/21 09:00 02/02/21 16:32 Hydromorphone 1 Mg/1 Ml Inj IV 0.25 mg Q4H PRN Administration Pain , MODERATE(4-6) Hydromorphone HCl 0.5 mg 01/31/21 09:00 02/04/21 06:40 Hydromorphone 1 Mg/1 Ml Inj IV 0.5 mg Q4H PRN Administration Pain , Severe (7-10) Lidocaine/Prilocaine 1 applic 01/30/21 17:18 Emla Cream 5 Gm TP ONCE PRN for [place] catheter insertion Multi-Ingredient Ointment 1 applic 01/30/21 19:40 Lanolin/Zinc/Dimethicone (Lansinoh) 7 Gm TP PRN PRN dryness/cracking Naloxone HCl 0.2 mg 01/30/21 18:14 Naloxone 0.4 Mg/1 Ml Inj IV Q2MIN PRN Res Rate </= 8 or 02 SAT < 92% Naloxone HCl 0.1 mg 01/30/21 19:40 Naloxone 0.4 Mg/1 Ml Inj IV Q2MIN PRN Res Rate </= 8 or 02 SAT < 92% Ondansetron HCl 4 mg 01/30/21 18:14 Ondansetron 4 Mg/2 Ml Inj IV Q8H PRN Nausea And Vomiting Simethicone 80 mg 01/30/21 19:40 Simethicone 80 Mg Chew Tab PO Q6H PRN Gas pain Sodium Bicarbonate 1,300 mg 01/31/21 14:00 02/03/21 21:34 Sodium Bicarbonate 650 Mg Tab PO 1,300 mg TID JONATAN Administration Sodium Chloride 10 ml 01/30/21 20:00 02/03/21 21:34 Sodium Chloride 0.9% 10 Ml Flush Syringe IV 02/09/21 19:59 10 ml PRN NR Administration Spironolactone 25 mg 02/02/21 22:00 02/03/21 09:42 Spironolactone 25 Mg Tab PO 25 mg QDAY JONATAN Administration Valsartan 80 mg 02/02/21 22:00 02/03/21 21:34 Valsartan 40 Mg Tab PO 80 mg BID JONATAN Administration Warfarin Sodium 7.5 mg 02/03/21 17:00 02/03/21 17:21 Warfarin 7.5 Mg Tab PO 7.5 mg DAILY@1700 JONATAN Administration Witch Connie/Glycerin 1 each 01/30/21 19:40 Witch Connie/ Glycerin Pad TP PRN PRN Hemorrhoids/cleansing/soothing
--- NOTE | 2021-02-04 08:43 | Progress Note ---
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 Patient advised to not breast-feed on her heart failure medications and to refrain from any future pregnancies. Subjective Date of service: 02/04/21 Principal diagnosis: s/p , POD #4, HELLP Syndrome, cardiomyopathy, CASSIE Interval history: Patient reports shortness of breath with minimal exertion. Admits she is diuresing well. Objective Vital Signs Temp Pulse Resp BP BP Pulse Ox 02/04/21 08:19 97.9 F 90 20 162/112 96 02/04/21 04:38 98.5 F 98 H 18 158/96 97 02/03/21 23:09 98.9 F 104 H 20 146/83 97 02/03/21 22:00 97 02/03/21 19:37 98.1 F 106 H 20 154/93 100 02/03/21 15:50 98.8 F 105 H 22 168/106 100 - Physical Examination General: No Apparent Distress HEENT: Positive: PERRL Neck: Positive: neck supple Neuro: Positive: Grossly Intact Abdomen: Positive: Soft Skin: Positive: Clear Extremities: Absent: edema - Labs and Meds Coagulation 02/03/21 02/04/21 Range/Units 10:02 04:58 PT 13.7 14.1 (12.2-14.9) Sec. INR 0.95 0.98 (0.87-1.13) APTT 28.5 (24.2-36.6) Sec. CBC 02/03/21 Range/Units 10:02 Hgb 9.9 L (10.1-14.3) gm/dl Hct 32.9 (30.3-42.9) % Plt Count 264 (140-440) K/mm3
[2021-02-04 09:50] LABS: Hematocrit 30.4 % (30.3-42.9); Hemoglobin 9.2 gm/dl (10.1-14.3); Mean Corpuscular HGB Conc 30 % (30-34); Mean Corpuscular Volume 83 fl (79-97); Platelet Count 341 K/mm3 (140-440); Red Blood Count 3.68 M/mm3 (3.65-5.03); Red Cell Distribution Width 18.5 % (13.2-15.2)
[2021-02-04] MEDS ORDERED: APIXABAN 5 MG TAB PO SCH (10:00)
[2021-02-04 10:01] LABS: INR 1.08 (0.87-1.13)
[2021-02-04 10:02] LABS: Partial Thromboplastin Time 47.9 Sec. (24.2-36.6)
[2021-02-04] MEDS: FUROSEMIDE 40 MG TAB PO SCH (10:30)
[2021-02-04] MEDS: carvediloL 6.25 MG TAB PO SCH (10:30)
[2021-02-04] MEDS: ASPIRIN EC 81 MG TAB PO SCH (10:30)
[2021-02-04] MEDS: VALSARTAN 40 MG TAB PO SCH (10:30)
[2021-02-04] MEDS: SPIRONOLACTONE 25 MG TAB PO SCH (10:30)
[2021-02-04] MEDS: FERROUS SULFATE 325 MG TAB PO SCH (10:30)
[2021-02-04] MEDS: SODIUM BICARBONATE 650 MG TAB PO SCH ×2 (10:33→14:26)
[2021-02-04 12:13] VITALS: BP 162/109
--- NOTE | 2021-02-04 13:29 | Progress Note ---
Assessment and Plan - Patient Problems (1) delivery, delivered, current hospitalization Status: Acute Plan to address problem: Patient is doing well postop set for bulb edema with will place ice on patient at present and desires to go home with the swelling over with treatment locally otherwise patient is stable enough to go home (2) Hemolysis, elevated liver enzymes, and low platelet (HELLP) syndrome during , delivered Status: Resolved Plan to address problem: Resolving (3) Hyperkalemia Status: Resolved Plan to address problem: Resolved (4) Hyponatremia Status: Resolved Plan to address problem: Has resolved and patient is cleared by hospitalist for discharge (5) Peripartum cardiomyopathy Status: Acute Plan to address problem: Discussed with Soraida patient is cleared for discharge from a cardiology standpoint patient is to follow-up in their office 7 to 10 days (6) Suspected pulmonary embolism Status: Acute Plan to address problem: Discussed with Dr. Monzon patient is stable for discharge on Eliquis. Subjective Date of service: 02/04/21 Principal diagnosis: s/p , HELLP Syndrome, cardiomyopathy, CASSIE Interval history: c/o labia swelling patient denies any headaches blurred vision Objective - Constitutional Vitals: Vital Signs - 12hr 02/04/21 02/04/21 02/04/21 04:38 08:19 10:00 Temperature 98.5 F 97.9 F Pulse Rate 98 H 90 Respiratory 18 20 Rate Blood Pressure 158/96 162/112 [Left] O2 Sat by Pulse 97 96 98 Oximetry 02/04/21 12:12 Temperature 98.3 F Pulse Rate 104 H Respiratory 18 Rate Blood Pressure 162/109 [Left] O2 Sat by Pulse 96 Oximetry General appearance: Present: no acute distress - Respiratory Respiratory effort: normal - Breasts Breasts: deferred - Cardiovascular Rhythm: regular Extremity abnormal: edema - Gastrointestinal General gastrointestinal: Present: soft, tender (Appropriate postop), non- distended, other (Incision intact Steri-Strips are clean are in place) Rectal Exam: deferred - Genitourinary Female genitourinary: other (Patient with edematous vulva nontender) - Psychiatric Psychiatric: memory intact, appropriate mood/affect, intact judgment & insight - Labs CBC & Chem 7: 02/04/21 09:21 02/04/21 09:21 Labs: Abnormal lab results 02/03/21 02/04/2121 Range/Units 16:36 09:21 09:21 Hgb 9.2 L (10.1-14.3) gm/dl MCH 25 L (28-32) pg RDW 18.5 H (13.2-15.2) % PT 15.2 H (12.2-14.9) Sec. APTT 47.9 H (24.2-36.6) Sec. Heparin Anti-Xa Level < 0.10 L (0.3-0.7) U.I./ml Medications & Allergies - Medications Allergies/Adverse Reactions: Allergies No Known Allergies Allergy (Unverified 03/23/18 14:50) Home Medications: Home Medications Medication Instructions Recorded Confirmed Last Taken Type Apixaban [Eliquis] 0 mg PO . DIR #88 tablet 02/04/21 Unknown Rx Ferrous Sulfate [Feosol 325 MG tab] 325 mg PO QDAY #30 tablet 02/04/21 Unknown Rx Furosemide [Lasix] 20 mg PO QDAY #30 tablet 02/04/21 Unknown Rx Glycerin/ Witch Connie Pad [Tucks 1 each TP PRN PRN #1 box 02/04/21 Unknown Rx Pad] Lanolin/Zinc/Dimethicone [Lansinoh] 1 applic TP PRN PRN #1 oint 02/04/21 Unknown Rx Lidocain2.5%/Prilocai2.5% [Emla] 1 applic TP ONCE PRN #1 tube 02/04/21 Unknown Rx Spironolactone [Aldactone] 25 mg PO QDAY #30 tablet 02/04/21 Unknown Rx Valsartan [Diovan] 80 mg PO BID #120 tablet 02/04/21 Unknown Rx carvediloL [Coreg] 6.25 mg PO BID #60 tablet 02/04/21 Unknown Rx Active Medications: Generic Name Dose Route Start Last Admin Trade Name Freq PRN Reason Stop Dose Admin Apixaban 10 mg 02/04/21 10:00 02/04/21 10:30 Apixaban 5 Mg Tab PO 02/10/21 22:01 10 mg Q12HR JONATAN Administration Protocol Apixaban 5 mg 02/11/21 10:00 Apixaban 5 Mg Tab PO Q12HR JONATAN Protocol Aspirin 81 mg 02/02/21 19:00 02/04/21 10:30 Aspirin Ec 81 Mg Tab PO 81 mg QDAY JONATAN Administration Carvedilol 6.25 mg 02/02/21 22:00 02/04/21 10:30 Carvedilol 6.25 Mg Tab PO 6.25 mg BID JONATAN Administration Ferrous Sulfate 325 mg 01/31/21 10:00 02/04/21 10:30 Ferrous Sulfate 325 Mg Tab PO 325 mg QDAY JONATAN Administration Furosemide 40 mg 02/02/21 22:00 02/04/21 10:30 Furosemide 40 Mg Tab PO 40 mg QDAY JONATAN Administration Hydralazine HCl 10 mg 01/31/21 09:00 02/03/21 17:21 Hydralazine 20 Mg/1 Ml Inj IV 10 mg ONCE PRN Administration Hypertension Hydromorphone HCl 0.25 mg 01/31/21 09:00 02/02/21 16:32 Hydromorphone 1 Mg/1 Ml Inj IV 0.25 mg Q4H PRN Administration Pain , MODERATE(4-6) Hydromorphone HCl 0.5 mg 01/31/21 09:00 02/04/21 12:50 Hydromorphone 1 Mg/1 Ml Inj IV 0.5 mg Q4H PRN Administration Pain , Severe (7-10) Multi-Ingredient Ointment 1 applic 01/30/21 19:40 Lanolin/Zinc/Dimethicone (Lansinoh) 7 Gm TP PRN PRN dryness/cracking Naloxone HCl 0.1 mg 01/30/21 19:40 Naloxone 0.4 Mg/1 Ml Inj IV Q2MIN PRN Res Rate </= 8 or 02 SAT < 92% Ondansetron HCl 4 mg 01/30/21 18:14 Ondansetron 4 Mg/2 Ml Inj IV Q8H PRN Nausea And Vomiting Simethicone 80 mg 01/30/21 19:40 Simethicone 80 Mg Chew Tab PO Q6H PRN Gas pain Sodium Bicarbonate 1,300 mg 01/31/21 14:00 02/04/21 10:33 Sodium Bicarbonate 650 Mg Tab PO 1,300 mg TID JONATAN Administration Sodium Chloride 10 ml 01/30/21 20:00 02/03/21 21:34 Sodium Chloride 0.9% 10 Ml Flush Syringe IV 02/09/21 19:59 10 ml PRN NR Administration Spironolactone 25 mg 02/02/21 22:00 02/04/21 10:30 Spironolactone 25 Mg Tab PO 25 mg QDAY JONATAN Administration Valsartan 80 mg 02/02/21 22:00 02/04/21 10:30 Valsartan 40 Mg Tab PO 80 mg BID JONATAN Administration Witch Connie/Glycerin 1 each 01/30/21 19:40 Witch Connie/ Glycerin Pad TP PRN PRN Hemorrhoids/cleansing/soothing
--- NOTE | 2021-02-05 12:15 | Discharge Summary ---
Providers - Providers Date of Admission: 01/30/21 16:34 Date of discharge: 02/04/21 Attending physician: WAQAR BURGOS 01/30/21 19:46 Consult to Case Management [CONS] Routine Services Needed at Discharge: Systems Software Specialist Notified:: SALAD COUNTER ATTENDANT Additional Physician Instructions: drug use no care 01/31/21 05:45 Consult to Physician [CONS] Routine Comment: Consulting Provider: SOCORRO PETERSEN Physician Instructions: Reason For Exam: hyponatremia 01/31/21 05:59 Consult to Physician [CONS] Routine Comment: Consulting Provider: ANTELMO MCKEON Physician Instructions: Reason For Exam: evalute for acute renal disease 02/01/21 07:17 Consult to Physician [CONS] Routine Comment: Consulting Provider: KYLE GRIFFITH Physician Instructions: Reason For Exam: borderline enlarged heart on CXR Primary care physician: VP ACCOUNT DIRECTOR Hospitalization Disposition: HOME / SELF CARE / HOMELESS - Discharge Diagnoses (1) delivery, delivered, current hospitalization Status: Acute (2) Hemolysis, elevated liver enzymes, and low platelet (HELLP) syndrome during , delivered Status: Resolved (3) Hyperkalemia Status: Resolved (4) Hyponatremia Status: Resolved (5) Peripartum cardiomyopathy Status: Acute (6) Suspected pulmonary embolism Status: Acute Plan - Discharge Medications Prescriptions: Spironolactone [Aldactone] 25 mg PO QDAY #30 tablet carvediloL [Coreg] 6.25 mg PO BID #60 tablet Valsartan [Diovan] 80 mg PO BID #120 tablet Apixaban [Eliquis] 0 mg PO . DIR #88 tablet Lidocain2.5%/Prilocai2.5% [Emla] 1 applic TP ONCE PRN #1 tube PRN Reason: for [place] catheter insertion Ferrous Sulfate [Feosol 325 MG tab] 325 mg PO QDAY #30 tablet Lanolin/Zinc/Dimethicone [Lansinoh] 1 applic TP PRN PRN #1 oint PRN Reason: dryness/cracking Furosemide [Lasix] 20 mg PO QDAY #30 tablet Glycerin/ Witch Connie Pad [Tucks Pad] 1 each TP PRN PRN #1 box PRN Reason: Hemorrhoids/cleansing/soothing - Provider Discharge Summary Additional instructions: [] Smoking cessation referral if applicable(refer to patient education folder for contact #) [] Refer to [facility]'s [facility] Booklet Call your doctor immediately for: * Fever > 100.5 * Heavy vaginal bleeding ( >1 pad per hour) * Severe persistent headache * Shortness of breath * Reddened, hot, painful area to leg or breast * Drainage or odor from incision. * Keep incision clean and dry at all times and follow doctor's instructions regarding bathing/showering - Follow up plan Follow up: PRIMARY CARE, [Primary Care Provider] - 7 Days Forms: Discharge Signature Page
[2021-02-11] MEDS ORDERED: APIXABAN 5 MG TAB PO SCH (10:00)
== END 2021-02-04 15:40 | disposition home or self-care (01) | DRG 786 ==
LOC: TRG 15:23 → APU 15:25 → TRG 16:52 → APU 18:33 → LD 19:54 → 4A 02-01 12:55
PROVIDERS: ADMIT Obstetrics & Gynecology; ATTEND Obstetrics & Gynecology
PROC: 10D00Z1 Extraction of Products of Conception, Low, Open Approach (ICD-10-PCS; principal; 2021-01-30)
PROC: 3E0234Z Introduction of Serum, Toxoid and Vaccine into Muscle, Percutaneous Approach (ICD-10-PCS; 2021-02-02)
DX: O34.211 Maternal care for low transverse scar from previous cesarean delivery (principal); N17.0 Acute kidney failure with tubular necrosis; O90.4 Postpartum acute kidney failure; O88.23 Thromboembolism in the puerperium; I50.21 Acute systolic (congestive) heart failure; E87.1 Hypo-osmolality and hyponatremia; E87.2 Acidosis; O99.13 Other diseases of the blood and blood-forming organs and certain disorders involving the immune mechanism complicating the puerperium; I50.20 Unspecified systolic (congestive) heart failure; O99.43 Diseases of the circulatory system complicating the puerperium; I42.9 Cardiomyopathy, unspecified; N85.8 Other specified noninflammatory disorders of uterus; Z20.822 Contact with and (suspected) exposure to COVID-19; O99.52 Diseases of the respiratory system complicating childbirth; O99.62 Diseases of the digestive system complicating childbirth; O14.14 Severe pre-eclampsia complicating childbirth; K21.9 Gastro-esophageal reflux disease without esophagitis; J45.909 Unspecified asthma, uncomplicated; O75.89 Other specified complications of labor and delivery; O14.24 HELLP syndrome, complicating childbirth; Z3A.39 39 weeks gestation of pregnancy; Z3A.38 38 weeks gestation of pregnancy; Z37.0 Single live birth; Z83.3 Family history of diabetes mellitus; Z82.49 Family history of ischemic heart disease and other diseases of the circulatory system; O90.81 Anemia of the puerperium; O99.214 Obesity complicating childbirth; E78.5 Hyperlipidemia, unspecified; O13.4 Gestational [pregnancy-induced] hypertension without significant proteinuria, complicating childbirth; D72.829 Elevated white blood cell count, unspecified; Z23 Encounter for immunization; I11.0 Hypertensive heart disease with heart failure
CPT/HCPCS: 36415; 71045; 71275; 76770; 76816; 78580; 80048; 80053; 80061; 80076; 80307; 81001; 82565; 82570; 82962; 83010; 83615; 83735; 83930; 83935; 84156; 84295; 84300; 84550; 84702; 85007; 85014; 85018; 85025; 85027; 85049; 85384; 85520; 85610; 85730; 86592; 86706; 86762; 86803; 86850; 86900; 86901; 87086; 87806; 88307; 89050; 93005; 93306; 93970; G0378; J3490; J7121; Q0162; A9540; J0360; J0690; J1170; J1644; J1940; J2405; J2765; J3475; J7030; J7070; Q9967; U0003